=== PATIENT | female | born 1965 | race Caucasian/White ===

== ENCOUNTER 2023-09-18 17:43 | Inpatient (IN) | payer BC, SELFPAY ==
[2023-09-18] VITALS (7 sets, daily range): BP systolic 120–136; BP diastolic 63–88; PULSE 60–82; RESP 12–18; TEMP 36.4–37; O2SAT 95–99; BMI 26.2; BMI 24.9
--- NOTE | 2023-09-18 18:01 | CT_ITS ---
INDICATION: abd pain, constipation EXAMINATION: CT ABDOMEN AND PELVIS WITHOUT CONTRAST - CT Abdomen And Pelvis W/O Contrast Injection TECHNIQUE: Helically acquired images were obtained of the abdomen and pelvis without oral or IV contrast. A radiation dose optimization technique was used for this scan. IV Contrast dosage and agent: None. Oral contrast: None. RADIATION DOSAGE (If Supplied By Facility): CTDIvol = ( 9.05 ) mGy, DLP = ( 438.65 ) mGycm COMPARISON: No relevant prior comparison study available FINDINGS: LOWER CHEST: Lung bases are clear. No cardiomegaly or pericardial effusion. LIVER: The liver is normal in size, shape, and attenuation. No focal mass. GALLBLADDER AND BILIARY TREE: The gallbladder is normally distended. No gallstones. No gallbladder wall thickening or edema. No intra- or extrahepatic biliary ductal dilation. PANCREAS: No focal cystic or solid mass. SPLEEN: Normal size without focal cystic or solid mass. ADRENAL GLANDS: No nodules. KIDNEYS AND URETERS: Normal renal size and position. No hydronephrosis or nephrolithiasis. PERITONEUM: No ascites or free air. No other fluid collection. BOWEL: There is sigmoid colonic diverticulosis with evidence of acute diverticulitis involving the mid sigmoid colon with a contained perforation along the superior aspect of the sigmoid colon and pericolic fat stranding. There is prominent diffuse some mucosal fat deposition throughout the colon which is a nonspecific finding but can be seen in association with chronic inflammatory bowel disease. Normal appendix. Stomach and small bowel unremarkable. LYMPH NODES: No enlarged mesenteric or retroperitoneal lymph nodes. VESSELS: Aorta is non-dilated. URINARY BLADDER: Unremarkable. REPRODUCTIVE ORGANS: No pelvic masses. ABDOMINAL WALL: No discrete abdominal or pelvic wall hernia. BONES: No acute or suspicious osseous abnormality. CT/Abdomen/Pelvis without Cont IMPRESSION: * Acute sigmoid colonic diverticulitis with a contained perforation containing gas along the superior aspect of the mid sigmoid colon. No drainable collections. * Diffuse cervical spine fat deposition throughout the colon, greater than is usually seen even with obesity. Suspect background chronic inflammatory bowel disease. Electronically Signed: Gato Miramontes MD at 18:42 EST ,
--- NOTE | 2023-09-18 18:02 | EX.ED.DYSGE1 ---
HPI History of Present Illness Chief Complaint: Constipation Informant: patient Onset/Context/Timing Onset: Weeks Narrative Narrative: Patient presents secondary to abdominal pain and constipation. She denies any history of constipation. She states she got URI symptoms shortly before that improved with [id number] medications. Since she has been constipated. She states she is passing gas and only a small smear of stool here or there. She tried multiple home remedies including MiraLAX and stool softeners. She has not tried an enema. She was seen at a local urgent care and given a bottle of magnesium citrate but did not have any results after using this. Patient states that she did have a colonoscopy in the past, slightly before the recommended age due to a family history of gallbladder and liver cancer. She states she has a floppy bowel. She states that she did not receive adequate sedation for her colonoscopy and the scope got stuck because of her bowel problems and she has never gone back for another scope. [facility] Medical History (Updated 09/18/23 @ 20:[address] Alisha Ferreira MD) Depression Home Medications venlafaxine 75 mg tablet 70 mg PO DAILY 06/10/16 [History Last Taken Unknown] lamotrigine 150 mg tablet 300 mg PO DAILY 09/18/23 [History Last Taken Unknown] nitrofurantoin monohydrate/macrocrystals 100 mg capsule (Macrobid) 100 mg PO BID 09/18/23 [History Last Taken Unknown] sertraline 100 mg tablet 150 mg PO Q24H 09/18/23 [History Last Taken Unknown] Allergy/AdvReac Type Severity Reaction Status Date / Time Penicillins Allergy Hives Verified 06/10/16 22:38 Social History Smoking Status: Current every day smoker tobacco type: cigarettes ROS ROS ED Constitutional Constitutional ED: Denies chills or fever(s) Eyes Eyes: Denies change in vision or discharge from eye(s) ENT ENT ED: Denies discharge from eye(s), rhinorrhea or sore throat Cardiovascular Cardiovascular: Denies chest pain or palpitations Respiratory/Chest Respiratory/Chest: Denies cough or dyspnea Gastrointestinal Gastrointestinal: Reports abdominal pain and constipation; Denies diarrhea, nausea or vomiting Genitourinary Genitourinary ED: Denies dysuria Musculoskeletal Musculoskeletal: Denies back pain or extremity pain Integumentary Denies Abrasions or rash Neurologic Neurologic: Denies headache(s) or weakness Psychiatric Psychiatric: Denies anxiety or depression Allergic/Immunologic Allergic/Immunologic ED: Denies lip swelling or urticaria EXAM Physical Exam Const Vital Signs: 09/18/23 17:44 09/18/23 19:46 09/18/23 17:46 Temperature 98.1 F 98.0 F Temperature Source Temporal Oral Pulse Rate 82 65 60 Respiratory Rate 16 12 12 Blood Pressure 136/88 H 136/75 H 120/69 Blood Pressure Mean 104 95 86 Pulse Ox 99 99 99 Oxygen Delivery Method Room Air Room Air Room Air 09/18/23 18:46 09/18/23 19:46 Temperature 98.6 F 98.1 F Temperature Source Oral Oral Pulse Rate 65 66 Respiratory Rate 13 12 Blood Pressure 135/63 H 130/70 H Blood Pressure Mean 87 90 Pulse Ox 99 98 Oxygen Delivery Method Room Air Room Air Positive well nourished and well developed General Appearance ED: well developed HEENT Reports normocephalic and head/scalp atraumatic Eyes PERRL and EOMs intact bilaterally Neck supple Chest Wall inspection of chest normal and palpation of chest normal Resp normal respiratory effort and clear to auscultation bilaterally Cardio regular rate and regular rhythm GI non-tender Auscultation: hypoactive bowel sounds Palpation: soft Extremity normal to inspection Neuro oriented x3 and no sensory deficits noted Sensorium / Orientation: alert Motor Exam: strength 5/5 throughout Psych mental status grossly normal Skin no rashes or lesions noted MDM MDM MDM Narrative Medical decision making narrative: Given the patient's history of abnormal bowel I will get a CT of her abdomen pelvis to ensure no obvious masses or evidence of obstruction that may not be obvious on x-ray. She has not had prior abdominal surgery. History & Record Review Discussion w/independent historian: Patient and Significant other Lab Data Attestation: I reviewed the patient's lab results. Labs: Laboratory Results - last 24 hr 09/18/23 19:25 WBC 16.0 H RBC 4.15 L Hgb 10.3 L Hct 33.6 L MCV 81.0 MCH 24.8 L MCHC 30.7 L RDW Std Deviation 45.7 H RDW Coeff of Tashi 15.6 H Plt Count 363 MPV 9.0 Immature Gran % (Auto) 0.800 Neut % (Auto) 77.3 H Lymph % (Auto) 14.2 L [place] % (Auto) 6.8 Eos % (Auto) 0.6 Baso % (Auto) 0.3 Absolute Neuts (auto) 12.3 H Absolute Lymphs (auto) 2.27 Nucleated RBC % 0 Sodium 136 Potassium 3.6 Chloride 104 Carbon Dioxide 27.0 Anion Gap 5 BUN 8 Creatinine 0.85 Est GFR (MDRD) Af Amer 88 Est GFR (MDRD) Non-Af 73 BUN/Creatinine Ratio 9.4 L Glucose 105 Calcium 9.4 Radiography Diagnostic Testing: Clinical Impression(s) from Imaging Studies Abdomen/Pelvis CT 09/18/23 18:01 IMPRESSION: * Acute sigmoid colonic diverticulitis with a contained perforation containing gas along the superior aspect of the mid sigmoid colon. No drainable collections. * Diffuse cervical spine fat deposition throughout the colon, greater than is usually seen even with obesity. Suspect background chronic inflammatory bowel disease. Electronically Signed: Gato Miramontes MD at 18:42 EST , Treatment and Re-Evaluation :: CT scan of the flank is read as acute sigmoid diverticulitis with a contained perforation containing gas along the superior aspect of the mid sigmoid colon. No drainable collections noted. With this reading patient did have IV line established. Labwork obtained to evaluate for leukocytosis, anemia, and electrolyte derangement. Patient given morphine and Zofran for pain. She was given Cipro and Flagyl antibiotic coverage as she does have a penicillin allergy. CBC reveals an elevated white count of 16,000 with 77% neutrophils. Chemistry studies are unremarkable. I spoke with Dr. Landaverde, on-call for surgery. She had reviewed the images. She states this is a contained perforation and asked if I would talk to medicine to see if they will admit as plan will be medical management only. I will speak with the hospitalist. Discharge Plan Triage Chief Complaint: Constipation ED Provider: Alisha Ferreira Dx/Rx/DC Orders Clinical Impression: Diverticulitis, Perforation bowel Prescriptions: No Action venlafaxine 75 MG tablet 70 mg PO DAILY sertraline 100 mg tablet 150 mg PO Q24H Patient Comments: Take 1.5 Tablet By Oral Route at bedtime. nitrofurantoin monohyd/m-cryst [Macrobid] 100 mg capsule 100 mg PO BID Rx Instructions: must administer with a meal/food lamotrigine 150 mg tablet 300 mg PO DAILY Patient Comments: Take 1 Tablet By Oral Route 2 time(s) per day Primary Care Provider: Taylor Schneider Referrals: Mitzi Wharton MD [Med Staff - Medication Aid] - Disposition Disposition: Acute Care Hospital [facility]
[2023-09-18] MEDS: Morphine 4 MG/ML Syringe IV (19:22)
[2023-09-18] MEDS: 0.9% Normal Saline (1000mL) 1,000 ML 150 ML IV (19:22)
[2023-09-18] MEDS: Ondansetron 4 MG/2 ML Vial IV (19:22)
[2023-09-18 19:32] LABS: Absolute Lymphocyte Count 2.27 X10^3/uL (0.83-4.51); Absolute Neutrophil Count 12.3 X10^3/uL (2.0-7.7); Basophil# 0.05 X10^3/uL; Basophil% 0.3 % (0-1); Eosinophil# 0.09 X10^3/uL; Eosinophils% 0.6 % (0-5); Hematocrit 33.6 % (37-47); Hemoglobin 10.3 g/dL (12.0-15.0); Lymphocyte # 2.27 X10^3/ul (0.83-4.51); Lymphocyte % 14.2 % (19-41); Mean Corp Hgb Conc 30.7 g/dL (32-36); Mean Corpuscular Hgb 24.8 pg (27.0-32.0); Monocyte# 1.08 X10^3/uL; Monocyte% 6.8 % (0-10); NRBC Flagged by Analyzer 0 % (0-5); Neutrophil # 12.33 X10^3/uL (2.7-7.7); Neutrophil % 77.3 % (47-70); Platelet Count 363 K/mm3 (150-450); RBC Distribution Width CV 15.6 % (11.6-14.6); RBC Distribution Width SD 45.7 fl (35.1-43.9); Red Blood Count 4.15 M/mm3 (4.2-5.4)
[2023-09-18] MEDS: metroNIDAZOLE 500 MG/100 ML BAG 100 MG IV (19:40)
[2023-09-18 19:44] LABS: Anion Gap 5 (5-15); BUN 8 mg/dL (7-18); BUN/Creat Ratio 9.4 RATIO (10-20); Calcium,Total 9.4 mg/dL (8.5-10.1); Chloride 104 mmol/L (98-107); Creatinine, Serum 0.85 mg/dL (0.55-1.02); EST Glomerular Filtration Rate 73 mL/min (>60); Est Glom Filt Rate - Afr Amer 88 mL/min (>60); Glucose 105 mg/dL (74-106); Potassium 3.6 mmol/L (3.5-5.1); Sodium Level 136 mmol/L (136-145)
--- NOTE | 2023-09-18 20:42 | PCM.HP.STD ---
HPI - General General Date of Service: 09/18/23 Chief Complaint: Abdominal pain. HPI Narrative ROLANDO CLOUD, is a 58 F who presents with further quadrant abdominal pain. Symptoms began before gi but has progressively gotten worse. She presented to the emergency room and had a CAT scan that showed acute sigmoid colonic diverticulitis with sigmoid colon. General surgery was contacted and said there is no indication for surgery at this time. Recommending antibiotics and n.p.o. status at this time. This was a conversation had with Dr. Landaverde. Patient has never had diverticulitis before. [facility] Medical History (Updated 09/18/23 @ 20:[address] Marco A Hu DO) Depression Home Medications venlafaxine 75 mg tablet 70 mg PO DAILY 06/10/16 [History Last Taken Unknown] lamotrigine 150 mg tablet 300 mg PO DAILY 09/18/23 [History Last Taken Unknown] nitrofurantoin monohydrate/macrocrystals 100 mg capsule (Macrobid) 100 mg PO BID 09/18/23 [History Last Taken Unknown] sertraline 100 mg tablet 150 mg PO Q24H 09/18/23 [History Last Taken Unknown] Allergy/AdvReac Type Severity Reaction Status Date / Time Penicillins Allergy Hives Verified 06/10/16 22:38 Family History (Updated 09/18/23 @ 20:[address] Marco A Hu DO) Mother Cancer Patient's mother has gallbladder cancer with metastasis to the liver. Social History (Updated 09/18/23 @ 20:[address] Marco A Hu DO) Smoking Status: Current every day smoker tobacco type: cigarettes substance use type: marijuana ROS ROS Narrative All review of systems were negative except as mentioned above in the history of present illness and the other review of systems. Vital Signs Vital Signs Vital Signs: 09/18/23 17:44 09/18/23 19:46 09/18/23 17:46 Temperature 36.7 C 36.7 C Temperature Source Temporal Oral Pulse Rate 82 65 60 Respiratory Rate 16 12 12 Blood Pressure 136/88 H 136/75 H 120/69 Blood Pressure Mean 104 95 86 Pulse Ox 99 99 99 Oxygen Delivery Method Room Air Room Air Room Air 09/18/23 18:46 09/18/23 19:46 09/18/23 20:32 Temperature 37.0 C 36.7 C Temperature Source Oral Oral Pulse Rate 65 66 Respiratory Rate 13 12 Blood Pressure 135/63 H 130/70 H 127/65 H Blood Pressure Mean 87 90 85 Pulse Ox 99 98 96 Oxygen Delivery Method Room Air Room Air Room Air Weight Weight: 75.9 kg Body Mass Index (BMI) 26.2 Physical Exam Narrative - Physical Exam General: Alert, Oriented x3, Cooperative HEENT: Atraumatic, PERRLA, EOMI, Normocephalic Oral: Moist Mucosa, No Gingival or Mucosal Lesions/ Ulcerations Neck: Supple, No JVD, Negative Carotid Bruits Lungs: Clear to auscultation, Normal air movement Cardiovascular: Regular rate, Normal S1, Normal S2, No murmurs Abdomen: Bowel Sounds Present, Soft, right lower quadrant abdominal tenderness. No rebound., Non-Distended, No Hepato-splenomegaly Extremities: No clubbing, No cyanosis, No edema, Capillary Refill Less than 3 Seconds Skin: No rashes, No breakdown Musculoskeletal: No Tenderness to Palpation of Joints or Extremities Neurological: Neuro grossly intact Psych/Mental Status: Normal Affect, Appropriate Results Lab / Micro Data Attestation: I reviewed the patient's lab results. 09/18/23 19:25 09/18/23 19:25 Labs: Laboratory Results - last 24 hr 09/18/23 19:25: WBC 16.0 H, RBC 4.15 L, Hgb 10.3 L, Hct 33.6 L, MCV 81.0, MCH 24.8 L, MCHC 30.7 L, RDW Std Deviation 45.7 H, RDW Coeff of Tashi 15.6 H, Plt Count 363, MPV 9.0, Immature Gran % (Auto) 0.800, Neut % (Auto) 77.3 H, Lymph % (Auto) 14.2 L, [place] % (Auto) 6.8, Eos % (Auto) 0.6, Baso % (Auto) 0.3, Absolute Neuts (auto) 12.3 H, Absolute Lymphs (auto) 2.27, Nucleated RBC % 0, Sodium 136, Potassium 3.6, Chloride 104, Carbon Dioxide 27.0, Anion Gap 5, BUN 8, Creatinine 0.85, Est GFR (MDRD) Af Amer 88, Est GFR (MDRD) Non-Af 73, BUN/Creatinine Ratio 9.4 L, Glucose 105, Calcium 9.4 Imagaing Radiology Impression Abdomen/Pelvis CT 09/18/23 18:01 IMPRESSION: * Acute sigmoid colonic diverticulitis with a contained perforation containing gas along the superior aspect of the mid sigmoid colon. No drainable collections. * Diffuse cervical spine fat deposition throughout the colon, greater than is usually seen even with obesity. Suspect background chronic inflammatory bowel disease. Electronically Signed: Gato Miramontes MD at 18:42 EST , Assessment & Plan Assessment/Plan (1) Diverticulitis of colon with perforation: PLAN: Onset was before . Now has diverticulitis with perforation. Patient received ciprofloxacin and metronidazole in the emergency room. Will continue with his antibiotics on the floor. Patient will be n.p.o. with exception of medications as well as ice chips. General surgery be on consultation. There is no plans for surgery at this time but many get them on board in case things were to somehow get worse. Discussed with the patient about the current management. Do anticipate this to continue to get better. Patient was asked about returning to work on Tuesday. I told her that the may be a little too soon and she may require more time before returning to work. PLAN: Plan Tobacco abuse: Patient smokes a pack and half cigarettes per day. Patient denies any need for any nicotine replacement at this time. VTE prophylaxis with enoxaparin. Charges/Coding Visit Charges Inpatient E&M: 40205 Init Hosp L2
[2023-09-18] MEDS: Ciprofloxacin 400 MG/200 ML BAG 200 MG IV (20:46)
[2023-09-18] MEDS: Ketorolac 15 MG/ML Vial IV (21:31)
[2023-09-18] MEDS: Sertraline 100 MG Tablet 150 MG PO (21:40)
[2023-09-18] MEDS: MELATONIN 10 MG TABLET PO (21:50)
[2023-09-19] MEDS: oxyCODONE 5 MG Tablet PO ×3 (03:08→19:38)
[2023-09-19] MEDS: 0.9% Normal Saline (1000mL) 1,000 ML 150 ML IV (03:08)
[2023-09-19 03:11] VITALS: BP 107/52; PULSE 81; RESP 16; TEMP 36.7; O2SAT 98
[2023-09-19] MEDS: metroNIDAZOLE 500 MG/100 ML BAG 100 MG IV ×3 (05:39→20:01)
[2023-09-19] MEDS: Ketorolac 15 MG/ML Vial IV ×3 (05:55→21:28)
[2023-09-19 06:41] LABS: Absolute Lymphocyte Count 1.96 X10^3/uL (0.83-4.51); Basophil# 0.04 X10^3/uL; Basophil% 0.3 % (0-1); Eosinophil# 0.16 X10^3/uL; Eosinophils% 1.3 % (0-5); Hematocrit 28.7 % (37-47); Hemoglobin 8.8 g/dL (12.0-15.0); Lymphocyte # 1.96 X10^3/ul (0.83-4.51); Mean Corp Hgb Conc 30.7 g/dL (32-36); Mean Corpuscular Hgb 24.9 pg (27.0-32.0); Mean Corpuscular Volume 81.3 fL (81-99); Mean Platelet Vol. 9.6 fl (6.2-12.0); Monocyte% 8.1 % (0-10); NRBC Flagged by Analyzer 0 % (0-5); Neutrophil # 9.02 X10^3/uL (2.7-7.7); Neutrophil % 73.5 % (47-70); Platelet Count 317 K/mm3 (150-450); RBC Distribution Width CV 15.5 % (11.6-14.6); RBC Distribution Width SD 45.6 fl (35.1-43.9); Red Blood Count 3.53 M/mm3 (4.2-5.4); White Blood Count 12.3 K/mm3 (4.4-11.0)
[2023-09-19 07:23] LABS: Anion Gap 4 (5-15); BUN 8 mg/dL (7-18); BUN/Creat Ratio 9.6 RATIO (10-20); Calcium,Total 8.4 mg/dL (8.5-10.1); Chloride 109 mmol/L (98-107); Creatinine, Serum 0.84 mg/dL (0.55-1.02); EST Glomerular Filtration Rate 74 mL/min (>60); Est Glom Filt Rate - Afr Amer 90 mL/min (>60); Estimated Creatinine Clearance 73.64 ml/min; Glucose 107 mg/dL (74-106); Potassium 3.4 mmol/L (3.5-5.1); Sodium Level 139 mmol/L (136-145)
--- NOTE | 2023-09-19 07:42 | PN.HOSP_ITS ---
Reason for Visit Reason for Visit: Diagnoses Diverticulitis of large intestine with perforation and abscess without bleeding (09/18/23) Subjective Subjective Patient is a 58-year-old lady admitted with abdominal pain imaging studies demonstrated acute sigmoid colonic diverticulitis with contained perforation containing gas along the superior aspect of the mid sigmoid colon. Admitted to regular nursing floor for further management Objective Data Objective Data Vital Signs: Vital Signs Temp Pulse Resp BP Pulse Ox O2 Del Method 98.0 F 81 16 107/52 L 98 Room Air 09/19/23 03:11 09/19/23 03:11 09/19/23 03:11 09/19/23 03:11 09/19/23 03:11 09/19/23 03:11 Oxygen Delivery Method Room Air Weight: 74.4 kg Body Mass Index (BMI) 24.9 Intake & Output: Intake and Output for Last 24 Hours 09/17/23 09/18/23 09/19/23 23:59 23:59 23:59 Intake Total 300 / 300 1100 / 1100 Balance 300 / 300 1100 / 1100 Lab / Micro Data 09/19/23 05:45 09/19/23 05:45 Labs: Laboratory Results - last 24 hr 09/18/23 19:25: WBC 16.0 H, RBC 4.15 L, Hgb 10.3 L, Hct 33.6 L, MCV 81.0, MCH 24.8 L, MCHC 30.7 L, RDW Std Deviation 45.7 H, RDW Coeff of Tashi 15.6 H, Plt Count 363, MPV 9.0, Immature Gran % (Auto) 0.800, Neut % (Auto) 77.3 H, Lymph % (Auto) 14.2 L, [place] % (Auto) 6.8, Eos % (Auto) 0.6, Baso % (Auto) 0.3, Absolute Neuts (auto) 12.3 H, Absolute Lymphs (auto) 2.27, Nucleated RBC % 0, Sodium 136, Potassium 3.6, Chloride 104, Carbon Dioxide 27.0, Anion Gap 5, BUN 8, Creatinine 0.85, Est GFR (MDRD) Af Amer 88, Est GFR (MDRD) Non-Af 73, BUN/Creatinine Ratio 9.4 L, Glucose 105, Calcium 9.4 09/19/23 05:45: WBC 12.3 H, RBC 3.53 L, Hgb 8.8 L, Hct 28.7 L, MCV 81.3, MCH 24.9 L, MCHC 30.7 L, RDW Std Deviation 45.6 H, RDW Coeff of Tashi 15.5 H, Plt Count 317, MPV 9.6, Immature Gran % (Auto) 0.800, Neut % (Auto) 73.5 H, Lymph % (Auto) 16.0 L, [place] % (Auto) 8.1, Eos % (Auto) 1.3, Baso % (Auto) 0.3, Absolute Neuts (auto) 9.0 H, Absolute Lymphs (auto) 1.96, Nucleated RBC % 0, Sodium 139, Potassium 3.4 L, Chloride 109 H, Carbon Dioxide 26.0, Anion Gap 4 L, BUN 8, Creatinine 0.84, Estim Creat Clear Calc 73.64, Est GFR (MDRD) Af Amer 90, Est GFR (MDRD) Non-Af 74, BUN/Creatinine Ratio 9.6 L, Glucose 107 H, Calcium 8.4 L Radiography Diagnostic Testing: Radiology Impression Abdomen/Pelvis CT 09/18/23 18:01 IMPRESSION: * Acute sigmoid colonic diverticulitis with a contained perforation containing gas along the superior aspect of the mid sigmoid colon. No drainable collections. * Diffuse cervical spine fat deposition throughout the colon, greater than is usually seen even with obesity. Suspect background chronic inflammatory bowel disease. Electronically Signed: Gato Miramontes MD at 18:42 EST Reading Location ID and State: [address] [place] [address] Tel , Service support , Physical Exam Narrative GENERAL: cooperative HEENT: Atraumatic; normocephalic EYES; Anicteric, Normal Conjunctiva NECK; supple, normal thyroid, RESPIRATORY: Diminished to auscultation CARDIOVASCULAR: Regular S1 S2, GI: soft, normoactive bowel sounds, : No Renal angle tenderness; EXTREMITIES: No edema, no clubbing, MUSCULOSKELETAL: no muscle wasting NEURO: Awake; no lateralizing signs. SKIN: No Rash PSYCH; Flat affect Assessment & Plan Assessment/Plan (1) Diverticulitis of colon with perforation: PLAN: Plan Patient is a 58-year-old lady admitted with abdominal pain imaging studies demonstrated acute sigmoid colonic diverticulitis with contained perforation containing gas along the superior aspect of the mid sigmoid colon. Admitted to regular nursing floor for further management 1. Acute colonic diverticulitis ? With perforation patient admitted to regular nursing floor managed conser vatively with bowel rest, antibiotics with ciprofloxacin and Flagyl with consultation placed to general surgery 2. Tobacco dependence - Counseled on cessation, offered nicotine patch for tobacco cravings 3. Hypokalemia -Corrected per protocol 4. Anemia - Secondary to chronic disorder.. Ordered iron studies as well as stool guaiac, monitoring H&H and transfuse if patient becomes symptomatic or hemoglobin falls below 7 5. DVT prophylaxis ? SC Lovenox Time spent in the patient's overall evaluation,decision-making process, review of diagnostic data, adjustment of management, discussion with other providers, nursing nursing and ancillary staff involved in patient's care documentation,50 Minutes Charges/Coding Visit Charges Inpatient E&M: 04830 [facility] L3
[2023-09-19 08:50] VITALS: BP 109/61; PULSE 61; RESP 18; TEMP 36.8; O2SAT 92
[2023-09-19] MEDS: lamoTRIgine 150 MG Tablet 300 MG PO (08:56)
[2023-09-19] MEDS: Ciprofloxacin 400 MG/200 ML BAG 200 MG IV ×2 (09:00→21:28)
--- NOTE | 2023-09-19 09:06 | CON.PCM.SX_ITS ---
Assessment & Plan Assessment/Plan (1) Diverticulitis of colon with perforation: PLAN: I have been consulted in conjunction with Dr. Landaverde. I have reviewed this patient and discussed treatment plan with her. She will independently eval uate this patient. Patient admitted with perforated sigmoid diverticulitis. Patient's symptoms seem to be improving on IV antibiotics and bowel rest. The plan will be to continue IV hydration, IV antibiotics and bowel rest. We will increase her diet to include clear liquids today. No surgical intervention is being recommended at this time. Patient is aware that if her symptoms were to become worse or we are seeing a change in her status, we may need to pursue acute surgical intervention. Patient has had the opportunity to ask and have questions answered. Patient verbally understands and agrees with the plan. Thank you for allowing us to participate in this patient's care. HPI Consult Data Date of Consult: 09/19/23 HPI Narrative Reason for Consultation: Perforated sigmoid diverticulitis HPI Narrative: ROLANDO CLOUD, is a 58 F who presents with increasing lower abdominal pain and bloating. Patient describes her discomfort as first stage of labor. She notes the cramping, painful sensation was all around her abdomen. She notes this started the day before Thanksgi. She thought she was constipated and attem pted at home remedies to assist with a bowel movement. She notes Miralax was one of the medications she tried without success. Patient notes she went to see urgent care due to the constipation and was recommended to try magnesium citrate. She was also noted to have a urinary tract infection which she was started on Macrobid. She notes she has taken 1 1/2 days of treatment. She notes she has not had much in the way of bowel movements. She notes she has had some diarrhea. She notes her abdominal pain had caused low back pain as well. Patient notes her symptoms intensified, which brought her to the ED. Patient notes she is passing small amount of gas. She notes having one episode of diarrhea here. Patient states she take an anti-depressant, otherwise no other medications. She has never had surgery previously. She denies history of diverticulitis. She denies nausea, vomiting. She denies cardiac and pulmonary history. She notes she was scheduled to see her PCP as an outpatient tomorrow for her symptoms, but again she notes she could not wait until then. Patient notes she is a smoker. She notes her pain has improved in the little time she has been admitted. CT scan of the abdomen/pelvis demonstrated acute sigmoid colonic diverticulitis with contained perforation containing gas along the superior aspect of the mid sigmoid colon. No abscess noted. Patient's WBC is 16.0 on admission, WBC is 12.3 today. [facility] Medical History Depression Home Medications lamotrigine 150 mg tablet 300 mg PO DAILY depression 09/18/23 [History Last Taken 09/17/23] nitrofurantoin monohydrate/macrocrystals 100 mg capsule (Macrobid) 100 mg PO BID uti 09/18/23 [History Last Taken 09/18/23] sertraline 100 mg tablet 150 mg PO Q24H depression 09/18/23 [History Last Taken 09/17/23] Allergy/AdvReac Type Severity Reaction Status Date / Time Penicillins Allergy Hives Verified 06/10/16 22:38 Family History (Updated 09/18/23 @ 20:[address] Marco A Hu DO) Mother Cancer Patient's mother has gallbladder cancer with metastasis to the liver. Social History (Updated 09/18/23 @ 20:[address] Marco A Hu DO) Smoking Status: Current every day smoker tobacco type: cigarettes substance use type: marijuana ROS Constitutional Constitutional: Reports systems reviewed and no addt'l complaints, except as documented Eyes Eyes: Reports systems reviewed and no addt'l complaints, except as documented ENT HEENT: Reports systems reviewed and no addt'l complaints, except as documented Cardiovascular Cardiovascular: Reports systems reviewed and no addt'l complaints, except as documented Respiratory/Chest Respiratory/Chest: Reports systems reviewed and no addt'l complaints, except as documented Gastrointestinal Gastrointestinal: Reports systems reviewed and no addt'l complaints, except as documented Genitourinary Genitourinary: Reports systems reviewed and no addt'l complaints, except as documented Musculoskeletal Musculoskeletal: Reports systems reviewed and no addt'l complaints, except as documented Integumentary Integumentary: Reports systems reviewed and no addt'l complaints, except as documented Neurologic Neurologic: Reports systems reviewed and no addt'l complaints, except as documented Psychiatric Psychiatric: Reports systems reviewed and no addt'l complaints, except as documented Endocrine Endocrinology: Reports systems reviewed and no addt'l complaints, except as documented Hematologic/Lymphatic Hematologic/Lymphatic: Reports systems reviewed and no addt'l complaints, except as documented Allergic/Immunologic Allergic/Immunologic: Reports systems reviewed and no addt'l complaints, except as documented Physical Exam Const alert, oriented x3 and no apparent distress HEENT normocephalic and head/scalp atraumatic Eyes PERRL Neck full ROM Lymph Lymphatic: no lymphadenopathy noted Chest inspection of chest normal Resp normal respiratory effort and clear to auscultation bilaterally Cardio regular rate and regular rhythm GI GI Narrative: Abdomen- distended slightly, slight tenderness in the left lower quadrant. Positive bowel sounds. no CVA tenderness Back/Spine no CVA tenderness Extremity normal to inspection Skin no rashes or lesions noted Neuro no focal motor deficits and no sensory deficits noted Psych mental status grossly normal Lab / Micro Data 09/19/23 05:45 09/19/23 05:45 Labs: Laboratory Results - last 24 hr 09/18/23 19:25: WBC 16.0 H, RBC 4.15 L, Hgb 10.3 L, Hct 33.6 L, MCV 81.0, MCH 24.8 L, MCHC 30.7 L, RDW Std Deviation 45.7 H, RDW Coeff of Tashi 15.6 H, Plt Count 363, MPV 9.0, Immature Gran % (Auto) 0.800, Neut % (Auto) 77.3 H, Lymph % (Auto) 14.2 L, Mckenzie % (Auto) 6.8, Eos % (Auto) 0.6, Baso % (Auto) 0.3, Absolute Neuts (auto) 12.3 H, Absolute Lymphs (auto) 2.27, Nucleated RBC % 0, Sodium 136, Potassium 3.6, Chloride 104, Carbon Dioxide 27.0, Anion Gap 5, BUN 8, Creatinine 0.85, Est GFR (MDRD) Af Amer 88, Est GFR (MDRD) Non-Af 73, BUN/Creatinine Ratio 9.4 L, Glucose 105, Calcium 9.4 09/19/23 05:45: WBC 12.3 H, RBC 3.53 L, Hgb 8.8 L, Hct 28.7 L, MCV 81.3, MCH 24.9 L, MCHC 30.7 L, RDW Std Deviation 45.6 H, RDW Coeff of Tashi 15.5 H, Plt Count 317, MPV 9.6, Immature Gran % (Auto) 0.800, Neut % (Auto) 73.5 H, Lymph % (Auto) 16.0 L, Mckenzie % (Auto) 8.1, Eos % (Auto) 1.3, Baso % (Auto) 0.3, Absolute Neuts (auto) 9.0 H, Absolute Lymphs (auto) 1.96, Nucleated RBC % 0, Sodium 139, Potassium 3.4 L, Chloride 109 H, Carbon Dioxide 26.0, Anion Gap 4 L, BUN 8, Creatinine 0.84, Estim Creat Clear Calc 73.64, Est GFR (MDRD) Af Amer 90, Est GFR (MDRD) Non-Af 74, BUN/Creatinine Ratio 9.6 L, Glucose 107 H, Calcium 8.4 L Imagaing Radiology Impression Abdomen/Pelvis CT 09/18/23 18:01 IMPRESSION: * Acute sigmoid colonic diverticulitis with a contained perforation containing gas along the superior aspect of the mid sigmoid colon. No drainable collections. * Diffuse cervical spine fat deposition throughout the colon, greater than is usually seen even with obesity. Suspect background chronic inflammatory bowel disease. Electronically Signed: Gato Miramontes MD at 18:42 EST Reading Location ID and State: [facility] / [place] Tel , Service support , Charges/Coding Visit Charges Office Visits / Consults: 72529 IP Consult L3
--- NOTE | 2023-09-19 10:10 | CASEMGMT ---
SARAI CARMONA Assessment: Face to Face with pt for initial transition planning/care coordination assessment. RN MATHEW introduced self and role at [facility], pt voices understanding and consents to assessment. Pt is A&O x4 and answers all questions appropriately at this time. Pt getting in bed, just coming back from restroom in no distress. Care providers, pharmacy, and demographics verified/updated. Admitting Dx: perforated diverticulitis PCP:[facility] Specialists:Denies Preferred Pharmacy:[facility] Insurance: [employer] Prescription Benefit: yes LNOK: Gato Vyas, Living Arrangements: Pt lives with and 2 adult children in a two story home with 2 steps to enter with a rail. Pt reports she could have FFSU if she needs it. Pt reports being I in ADL's and denies concerns at home. Transportation: Pt drives self and denies concerns with transportation. DME:Denies HHC/SNF: Denies hx of Pt states no concerns with going home at time of dc. Pt states no further concerns/needs. CM to follow. Advised pt to ask CM if any further question/concerns/needs arise, voices understanding. Pt Goal: Home Plan: Home
[2023-09-19 10:32] LABS: Ferritin 15 ng/mL (8-252); Iron 30 ug/dL (50-170); Iron Binding Capacity,Total 347 ug/dL (250-450); PERCENT IRON SATURATION 8.6 % (15.0-55.0); Vitamin B12 776 pg/mL (211-911)
[2023-09-19 10:34] LABS: Platelet Count 337 K/mm3 (150-450); RET-HE 26.2 pg (30-35); Reticulocyte Count 1.67 % (0.5-1.5)
[2023-09-19] MEDS: Potassium Chloride 40 MEQ in Dext 5%-0.45% NS 1,000 ML 125 MEQ IV ×2 (11:14→19:54)
[2023-09-19] MEDS: 0.9% Saline Lock 10 ML Syringe IV (14:16)
[2023-09-19 14:50] VITALS: BP 96/47; PULSE 62; RESP 18; TEMP 36.9; O2SAT 96
[2023-09-19] MEDS: Acetaminophen 325 MG Tablet 650 MG PO (19:38)
[2023-09-19] MEDS: Sertraline 100 MG Tablet 150 MG PO ×2 (20:01→20:04)
[2023-09-19 20:16] VITALS: BP 114/62; PULSE 86; RESP 16; TEMP 36.8; O2SAT 98
[2023-09-20] MEDS: metroNIDAZOLE 500 MG/100 ML BAG 100 MG IV ×3 (04:52→20:54)
[2023-09-20] MEDS: Potassium Chloride 40 MEQ in Dext 5%-0.45% NS 1,000 ML 125 MEQ IV ×2 (04:52→14:35)
[2023-09-20] MEDS: Ketorolac 15 MG/ML Vial IV ×3 (05:51→22:07)
[2023-09-20 05:54] VITALS: BP 120/61; PULSE 69; RESP 16; TEMP 36.7; O2SAT 99
--- NOTE | 2023-09-20 07:14 | PN.SURG_ITS ---
Subjective Subjective Patient states pain is improved rates it at 3/10. Objective Data Objective Data Vital Signs: Vital Signs Temp Pulse Resp BP Pulse Ox O2 Del Method 98.0 F 69 16 120/61 99 Room Air 09/20/23 05:54 09/20/23 05:54 09/20/23 05:54 09/20/23 05:54 09/20/23 05:54 09/20/23 05:54 Oxygen Delivery Method Room Air Weight: 164 lb 0.383 oz Body Mass Index (BMI) 24.9 Intake & Output: Intake and Output for Last 24 Hours 09/18/23 09/19/23 09/20/23 23:59 23:59 23:59 Intake Total 300 / 300 3820 / 3820 1120 / 1120 Balance 300 / 300 3820 / 3820 1120 / 1120 Lab / Micro Data 09/20/23 07:07 09/20/23 07:07 Labs: Laboratory Results - last 24 hr 09/19/23 05:45: Retic Count 1.67 H, Immature Retic Fraction 22.30 H, Retic Hgb Equivalent 26.2 L, Sodium 139, Potassium 3.4 L, Chloride 109 H, Carbon Dioxide 26.0, Anion Gap 4 L, BUN 8, Creatinine 0.84, Estim Creat Clear Calc 73.64, Est GFR (MDRD) Af Amer 90, Est GFR (MDRD) Non-Af 74, BUN/Creatinine Ratio 9.6 L, Glucose 107 H, Calcium 8.4 L, Iron 30 L, TIBC 347, Iron Saturation 8.6 L, Ferritin 15, Vitamin B12 776 Micro: Microbiology 09/19/23 21:40 Stool Stool Occult Blood (ROSY) - Final Occult Blood Positive Physical Exam Const oriented x3 and no apparent distress Resp normal respiratory effort Cardio regular rate GI soft to palpation Inspection: Negative for abdominal distention Palpation: tender periumbilical (No peritoneal signs) and other Assessment & Plan Assessment/Plan (1) Diverticulitis of colon with perforation: PLAN: Will advance to clears- do not advance continue Zosyn IV Continue pain control Monique Landaverde M.D. Pager: [phone] [facility] [address] [place] [address], Outpatient Pavilion, [address] [place] [address] Office: [phone] Charges/Coding Visit Charges Inpatient E&M: 65210 Subs Hosp L2
[2023-09-20 07:29] LABS: Absolute Neutrophil Count 7.6 X10^3/uL (2.0-7.7); Basophil# 0.04 X10^3/uL; Basophil% 0.4 % (0-1); Eosinophil# 0.17 X10^3/uL; Eosinophils% 1.6 % (0-5); Hematocrit 27.1 % (37-47); Hemoglobin 8.3 g/dL (12.0-15.0); Lymphocyte % 16.4 % (19-41); Mean Corp Hgb Conc 30.6 g/dL (32-36); Mean Corpuscular Volume 81.6 fL (81-99); Mean Platelet Vol. 9.2 fl (6.2-12.0); Monocyte# 0.79 X10^3/uL; Monocyte% 7.6 % (0-10); NRBC Flagged by Analyzer 0 % (0-5); Neutrophil % 73.2 % (47-70); Platelet Count 323 K/mm3 (150-450); RBC Distribution Width CV 15.6 % (11.6-14.6); Red Blood Count 3.32 M/mm3 (4.2-5.4); White Blood Count 10.4 K/mm3 (4.4-11.0)
--- NOTE | 2023-09-20 07:37 | PCM.PN.HOSP ---
Reason for Visit Reason for Visit: Diagnoses Diverticulitis of large intestine with perforation and abscess without bleeding (09/18/23) Subjective Subjective Patient seen, abdominal pain improving. Iron studies undertaken the day prior consistent with iron deficiency anemia. Has been started on oral diet clear for now Objective Data Objective Data Vital Signs: Vital Signs Temp Pulse Resp BP Pulse Ox O2 Del Method 98.0 F 69 16 120/61 99 Room Air 09/20/23 05:54 09/20/23 05:54 09/20/23 05:54 09/20/23 05:54 09/20/23 05:54 09/20/23 05:54 Oxygen Delivery Method Room Air Weight: 74.4 kg Body Mass Index (BMI) 24.9 Intake & Output: Intake and Output for Last 24 Hours 09/18/23 09/19/23 09/20/23 23:59 23:59 23:59 Intake Total 300 / 300 3820 / 3820 1120 / 1120 Balance 300 / 300 3820 / 3820 1120 / 1120 Lab / Micro Data 09/20/23 07:07 09/20/23 07:07 Labs: Laboratory Results - last 24 hr 09/19/23 05:45: Retic Count 1.67 H, Immature Retic Fraction 22.30 H, Retic Hgb Equivalent 26.2 L, Iron 30 L, TIBC 347, Iron Saturation 8.6 L, Ferritin 15, Vitamin B12 776 09/20/23 07:07: WBC 10.4, RBC 3.32 L, Hgb 8.3 L, Hct 27.1 L, MCV 81.6, MCH 25.0 L, MCHC 30.6 L, RDW Std Deviation 46.0 H, RDW Coeff of Tashi 15.6 H, Plt Count 323, MPV 9.2, Immature Gran % (Auto) 0.800, Neut % (Auto) 73.2 H, Lymph % (Auto) 16.4 L, [place] % (Auto) 7.6, Eos % (Auto) 1.6, Baso % (Auto) 0.4, Absolute Neuts (auto) 7.6, Absolute Lymphs (auto) 1.70, Nucleated RBC % 0 Micro: Microbiology 09/19/23 21:40 Stool Stool Occult Blood (ROSY) - Final Occult Blood Positive Physical Exam Narrative GENERAL: cooperative HEENT: Atraumatic; normocephalic EYES; Anicteric, Normal Conjunctiva NECK; supple, normal thyroid, RESPIRATORY: Diminished to auscultation CARDIOVASCULAR: Regular S1 S2, GI: soft, normoactive bowel sounds, : No Renal angle tenderness; EXTREMITIES: No edema, no clubbing, MUSCULOSKELETAL: no muscle wasting NEURO: Awake; no lateralizing signs. SKIN: No Rash PSYCH; Flat affect Assessment & Plan Assessment/Plan (1) Diverticulitis of colon with perforation: PLAN: Plan Patient is a 58-year-old lady admitted with abdominal pain imaging studies demonstrated acute sigmoid colonic diverticulitis with contained perforation containing gas along the superior aspect of the mid sigmoid colon. Admitted to regular nursing floor for further management 1. Acute colonic diverticulitis ? With perforation patient admitted to regular nursing floor managed conservatively with bowel rest, antibiotics with ciprofloxacin and Flagyl with consultation placed to general surgery ? 09/20/2023; Patient seen, abdominal pain improving. Iron studies undertaken the day prior consistent with iron deficiency anemia. Has been started on oral diet clear for now 2. Tobacco dependence - Counseled on cessation, offered nicotine patch for tobacco cravings 3. Hypokalemia -Corrected per protocol 4. Anemia - Secondary to chronic disorder.. Ordered iron studies as well as stool guaiac, monitoring H&H and transfuse if patient becomes symptomatic or hemoglobin falls below 7 ? 09/20/2023 patient iron studies consistent with iron deficiency anemia informed of the result and the need for patient to undergo endoscopic evaluation with upper and lower following discharge 5. DVT prophylaxis ? SC Lovenox Time spent in the patient's overall evaluation,decision-making process, review of diagnostic data, adjustment of management, discussion with other providers, nursing nursing and ancillary staff involved in patient's care documentation, 35 Minutes Charges/Coding Visit Charges Inpatient E&M: 17631 Subs Hosp L2
[2023-09-20 07:55] LABS: Anion Gap 1 (5-15); BUN 4 mg/dL (7-18); BUN/Creat Ratio 5.5 RATIO (10-20); Calcium,Total 8.5 mg/dL (8.5-10.1); Chloride 113 mmol/L (98-107); Creatinine, Serum 0.73 mg/dL (0.55-1.02); EST Glomerular Filtration Rate 87 mL/min (>60); Est Glom Filt Rate - Afr Amer 105 mL/min (>60); Estimated Creatinine Clearance 84.74 ml/min; Glucose 118 mg/dL (74-106); Magnesium 2.2 mg/dL (1.6-2.6); Phosphorus 2.1 mg/dL (2.5-4.9); Potassium 3.8 mmol/L (3.5-5.1); Sodium Level 141 mmol/L (136-145)
[2023-09-20] MEDS: Ciprofloxacin 400 MG/200 ML BAG 200 MG IV ×2 (09:28→22:01)
[2023-09-20] MEDS: lamoTRIgine 150 MG Tablet 300 MG PO (09:29)
[2023-09-20 09:30] VITALS: BP 117/62; PULSE 68; RESP 16; TEMP 37; O2SAT 97
[2023-09-20] MEDS: Na Biphos/Potassium Phosphate PACKET 1 PACKET PO ×2 (11:51→22:03)
[2023-09-20 14:05] VITALS: BP 112/51; PULSE 77; RESP 16; TEMP 37; O2SAT 97
[2023-09-20] MEDS: 0.9% Saline Lock 10 ML Syringe IV ×3 (15:32→22:07)
[2023-09-20 22:00] VITALS: BP 117/66; PULSE 71; RESP 18; TEMP 36.9; O2SAT 99
[2023-09-20] MEDS: MELATONIN 10 MG TABLET PO (22:07)
[2023-09-21] MEDS: Potassium Chloride 40 MEQ in Dext 5%-0.45% NS 1,000 ML 125 MEQ IV (01:10)
[2023-09-21 06:17] VITALS: BP 112/54; PULSE 77; RESP 18; TEMP 37.1; O2SAT 97
[2023-09-21] MEDS: Ketorolac 15 MG/ML Vial IV (06:21)
[2023-09-21] MEDS: 0.9% Saline Lock 10 ML Syringe IV (06:21)
[2023-09-21] MEDS: metroNIDAZOLE 500 MG/100 ML BAG 100 MG IV ×2 (06:23→13:26)
[2023-09-21 07:50] VITALS: BP 97/56; PULSE 69; RESP 16; TEMP 36.6; O2SAT 97
--- NOTE | 2023-09-21 07:57 | PCM.PN.HOSP ---
Reason for Visit Reason for Visit: Diagnoses Diverticulitis of large intestine with perforation and abscess without bleeding (09/18/23) Subjective Subjective Patient seen held pain is improving. Plan is advance diet as tolerated with plans for discharge later on in the day Objective Data Objective Data Vital Signs: Vital Signs Temp Pulse Resp BP Pulse Ox O2 Del Method 97.8 F 69 16 97/56 L 97 Room Air 09/21/23 07:50 09/21/23 07:50 09/21/23 07:50 09/21/23 07:50 09/21/23 07:50 09/21/23 07:50 Oxygen Delivery Method Room Air Weight: 74.4 kg Body Mass Index (BMI) 24.9 Intake & Output: Intake and Output for Last 24 Hours 09/19/23 09/20/23 09/21/23 23:59 23:59 23:59 Intake Total 3820 / 3820 3986.67 / 3986.67 1220.83 / 1220.83 Balance 3820 / 3820 3986.67 / 3986.67 1220.83 / 1220.83 Lab / Micro Data 09/21/23 06:59 09/21/23 06:59 Micro: Microbiology 09/19/23 21:40 Stool Stool Occult Blood (ROSY) - Final Occult Blood Positive Physical Exam Narrative GENERAL: cooperative HEENT: Atraumatic; normocephalic EYES; Anicteric, Normal Conjunctiva NECK; supple, normal thyroid, RESPIRATORY: Diminished to auscultation CARDIOVASCULAR: Regular S1 S2, GI: soft, normoactive bowel sounds, : No Renal angle tenderness; EXTREMITIES: No edema, no clubbing, MUSCULOSKELETAL: no muscle wasting NEURO: Awake; no lateralizing signs. SKIN: No Rash PSYCH; Flat affect Assessment & Plan Assessment/Plan (1) Diverticulitis of colon with perforation: PLAN: Plan Patient is a 58-year-old lady admitted with abdominal pain imaging studies demonstrated acute sigmoid colonic diverticulitis with contained perforation containing gas along the superior aspect of the mid sigmoid colon. Admitted to regular nursing floor for further management 1. Acute colonic diverticulitis ? With perforation patient admitted to regular nursing floor managed conservatively with bowel rest, antibiotics with ciprofloxacin and Flagyl with consultation placed to general surgery ? 09/20/2023; Patient seen, abdominal pain improving. Iron studies undertaken the day prior consistent with iron deficiency anemia. Has been started on oral diet clear for now ? 09/21/2023;Patient seen held pain is improving. Plan is advance diet as tolerated with plans for discharge later on in the day 2. Tobacco dependence - Counseled on cessation, offered nicotine patch for tobacco cravings 3. Hypokalemia -Corrected per protocol 4. Anemia - Secondary to chronic disorder.. Ordered iron studies as well as stool guaiac, monitoring H&H and transfuse if patient becomes symptomatic or hemoglobin falls below 7 ? 09/20/2023 patient iron studies consistent with iron deficiency anemia informed of the result and the need for patient to undergo endoscopic evaluation with upper and lower following discharge 5. DVT prophylaxis ? SC Lovenox Time spent in the patient's overall evaluation,decision-making process, review of diagnostic data, adjustment of management, discussion with other providers, nursing nursing and ancillary staff involved in patient's care documentation, 35 Minutes Charges/Coding Visit Charges Inpatient E&M: 95592 Subs Hosp L2
--- NOTE | 2023-09-21 08:02 | PCM.PN.SRG ---
Subjective Subjective Patient still rates her pain at a 3/10 however denies pain with palpation of the abdomen. Patient is only been taking Toradol for the last 2 days. Tolerated clears Objective Data Objective Data Vital Signs: Vital Signs Temp Pulse Resp BP Pulse Ox O2 Del Method 97.8 F 69 16 97/56 L 97 Room Air 09/21/23 07:50 09/21/23 07:50 09/21/23 07:50 09/21/23 07:50 09/21/23 07:50 09/21/23 07:50 Oxygen Delivery Method Room Air Weight: 164 lb 0.383 oz Body Mass Index (BMI) 24.9 Intake & Output: Intake and Output for Last 24 Hours 09/19/23 09/20/23 09/21/23 23:59 23:59 23:59 Intake Total 3820 / 3820 3986.67 / 3986.67 1220.83 / 1220.83 Balance 3820 / 3820 3986.67 / 3986.67 1220.83 / 1220.83 Lab / Micro Data 09/20/23 07:07 09/20/23 07:07 Micro: Microbiology 09/19/23 21:40 Stool Stool Occult Blood (ROSY) - Final Occult Blood Positive Physical Exam Const oriented x3 and no apparent distress Resp normal respiratory effort Cardio regular rate GI soft to palpation Inspection: Negative for abdominal distention Palpation: Negative for tender Assessment & Plan Assessment/Plan (1) Diverticulitis of colon with perforation: PLAN: Will advance to full's if patient does well may advance to low fiber tonight and may be able to be DC'd tonight. continue Cipro/Flagyl IV recommended by another 10 days of antibiotics and for patient to follow-up in the office prior to end of antibiotics. Continue pain control Monique Landaverde M.D. Pager: [phone] [facility] [address] [place] [address], [facility], [address] [place] [address] Office: [phone] Charges/Coding Visit Charges Inpatient E&M: 63919 Subs Hosp L2
[2023-09-21 08:41] LABS: Absolute Lymphocyte Count 2.09 X10^3/uL (0.83-4.51); Absolute Neutrophil Count 5.1 X10^3/uL (2.0-7.7); Basophil# 0.05 X10^3/uL; Basophil% 0.6 % (0-1); Eosinophil# 0.15 X10^3/uL; Eosinophils% 1.8 % (0-5); Hematocrit 28.4 % (37-47); Hemoglobin 8.4 g/dL (12.0-15.0); Lymphocyte # 2.09 X10^3/ul (0.83-4.51); Lymphocyte % 25.6 % (19-41); Mean Corp Hgb Conc 29.6 g/dL (32-36); Mean Corpuscular Hgb 24.2 pg (27.0-32.0); Mean Corpuscular Volume 81.8 fL (81-99); Mean Platelet Vol. 9.7 fl (6.2-12.0); Monocyte# 0.75 X10^3/uL; Monocyte% 9.2 % (0-10); NRBC Flagged by Analyzer 0 % (0-5); Neutrophil # 5.09 X10^3/uL (2.7-7.7); Neutrophil % 62.2 % (47-70); Platelet Count 374 K/mm3 (150-450); RBC Distribution Width CV 15.8 % (11.6-14.6); RBC Distribution Width SD 46.4 fl (35.1-43.9); Red Blood Count 3.47 M/mm3 (4.2-5.4); White Blood Count 8.2 K/mm3 (4.4-11.0)
[2023-09-21 09:10] LABS: Anion Gap 3 (5-15); BUN 3 mg/dL (7-18); BUN/Creat Ratio 3.9 RATIO (10-20); Calcium,Total 8.6 mg/dL (8.5-10.1); Chloride 114 mmol/L (98-107); Creatinine, Serum 0.78 mg/dL (0.55-1.02); EST Glomerular Filtration Rate 81 mL/min (>60); Est Glom Filt Rate - Afr Amer 98 mL/min (>60); Estimated Creatinine Clearance 79.31 ml/min; Glucose 95 mg/dL (74-106); Potassium 3.9 mmol/L (3.5-5.1); Sodium Level 142 mmol/L (136-145)
[2023-09-21] MEDS: Na Biphos/Potassium Phosphate PACKET 1 PACKET PO (09:29)
[2023-09-21] MEDS: lamoTRIgine 150 MG Tablet 300 MG PO (09:29)
[2023-09-21] MEDS: Ciprofloxacin 400 MG/200 ML BAG 200 MG IV (09:35)
[2023-09-21 09:45] VITALS: O2SAT 97
[2023-09-21 13:57] VITALS: BP 112/52; PULSE 73; RESP 17; TEMP 36.7; O2SAT 100
--- NOTE | 2023-09-21 14:33 | PCM.DC.SUM ---
Providers Date of Admission: 09/18/23 Date of Discharge: 09/21/23 Primary Care Physician: Dr. Taylor Schneider, DO Consultations 09/18/23 21:00 Consult: General Surgery Routine Consulting Provider: Monique Landaverde Reason for Consult: perforated diverticulitis EMERGENT Consult: No MD Notified: Yes Date Notified: 09/18/23 Time Notified: 20:37 Method of Notification: Verbal Reason For Visit: PERFORATED DIVERTICULITIS Diagnosis Discharge Diagnosis (1) Diverticulitis of colon with perforation: Status: Acute Code(s): K57.20 - Diverticulitis of large intestine with perforation and abscess without bleeding Plan Patient is a 58-year-old lady admitted with abdominal pain imaging studies demonstrated acute sigmoid colonic diverticulitis with contained perforation containing gas along the superior aspect of the mid sigmoid colon. Admitted to regular nursing floor for further management 1. Acute colonic diverticulitis ? With perforation patient admitted to regular nursing floor managed conservatively with bowel rest, antibiotics with ciprofloxacin and Flagyl with consultation placed to general surgery ? 09/20/2023; Patient seen, abdominal pain improving. Iron studies undertaken the day prior consistent with iron deficiency anemia. Has been started on oral diet clear for now ? 09/21/2023;Patient seen held pain is improving. Plan is advance diet as tolerated with plans for discharge later on in the day 2. Tobacco dependence - Counseled on cessation, offered nicotine patch for tobacco cravings 3. Hypokalemia -Corrected per protocol 4. Anemia - Secondary to chronic disorder.. Ordered iron studies as well as stool guaiac, monitoring H&H and transfuse if patient becomes symptomatic or hemoglobin falls below 7 ? 09/20/2023 patient iron studies consistent with iron deficiency anemia informed of the result and the need for patient to undergo endoscopic evaluation with upper and lower following discharge 5. DVT prophylaxis ? SC Lovenox Time spent in the patient's overall evaluation,decision-making process, review of diagnostic data, adjustment of management, discussion with other providers, nursing nursing and ancillary staff involved in patient's care documentation, 35 Minutes Medications at Discharge Home Medications lamotrigine 150 mg tablet 300 mg PO DAILY depression 09/18/23 sertraline 100 mg tablet 150 mg PO Q24H depression 09/18/23 ciprofloxacin HCl 500 mg tablet (Cipro) 500 mg PO BID #14 tabs 09/21/23 metronidazole 500 mg tablet 500 mg PO TID #21 tabs 09/21/23 oxycodone 5 mg tablet 5 mg PO Q4H PRN PRN Pain Score 4-10 5 days #20 tabs 09/21/23 Hospital Course Summary of Care Provided Minutes Spent on Discharge: 35 Physical Exam Narrative GENERAL: cooperative HEENT: Atraumatic; normocephalic EYES; Anicteric, Normal Conjunctiva NECK; supple, normal thyroid, RESPIRATORY: Diminished to auscultation CARDIOVASCULAR: Regular S1 S2, GI: soft, normoactive bowel sounds, : No Renal angle tenderness; EXTREMITIES: No edema, no clubbing, MUSCULOSKELETAL: no muscle wasting NEURO: Awake; no lateralizing signs. SKIN: No Rash PSYCH; Flat affect Weight / BMI Weight Weight: 74.4 kg Body Mass Index (BMI) 24.9 ABG / Lab / Microbiology Data 09/21/23 06:59 09/21/23 06:59 Laboratory: Laboratory Results - last 24 hr 09/21/23 06:59: WBC 8.2, RBC 3.47 L, Hgb 8.4 L, Hct 28.4 L, MCV 81.8, MCH 24.2 L, MCHC 29.6 L, RDW Std Deviation 46.4 H, RDW Coeff of Tashi 15.8 H, Plt Count 374, MPV 9.7, Immature Gran % (Auto) 0.600, Neut % (Auto) 62.2, Lymph % (Auto) 25.6, [place] % (Auto) 9.2, Eos % (Auto) 1.8, Baso % (Auto) 0.6, Absolute Neuts (auto) 5.1, Absolute Lymphs (auto) 2.09, Nucleated RBC % 0, Sodium 142, Potassium 3.9, Chloride 114 H, Carbon Dioxide 25.0, Anion Gap 3 L, BUN 3 L, Creatinine 0.78, Estim Creat Clear Calc 79.31, Est GFR (MDRD) Af Amer 98, Est GFR (MDRD) Non-Af 81, BUN/Creatinine Ratio 3.9 L, Glucose 95, Calcium 8.6 Microbiology: Microbiology 09/19/23 21:40 Stool Stool Occult Blood (ROSY) - Final Occult Blood Positive D/C Instructions Discharge Diet: Light diet - advance as tolerated Discharge Activity: Return to Normal Activity Call your doctor if you observe: Fever of 101 or Higher, Shortness of breath, Fainting spells and Chest pain Meaningful Use Info Meaningful Use Diagnoses (Choose all that apply): None applicable Discharge Plan Admission Admit Date/Time: 09/18/23 20:36 Attending Provider: Gato Hayes Primary Care Provider: Taylor Schneider Consulting Providers: Monique Landaverde; Marco A Hu Discharge Orders/Prescriptions Prescriptions: New oxycodone 5 mg Tablet 5 mg PO Q4H PRN PRN (Reason: Pain Score 4-10) 5 Days Qty: 20 0RF metronidazole 500 mg tablet 500 mg PO TID Qty: 21 0RF ciprofloxacin HCl [Cipro] 500 mg tablet 500 mg PO BID Qty: 14 0RF Continued sertraline 100 mg tablet 150 mg PO Q24H Patient Comments: Take 1.5 Tablet By Oral Route at bedtime. lamotrigine 150 mg tablet 300 mg PO DAILY Patient Comments: Take 1 Tablet By Oral Route 2 time(s) per day Discontinued nitrofurantoin monohyd/m-cryst [Macrobid] 100 mg capsule 100 mg PO BID Rx Instructions: must administer with a meal/food Referrals / Follow Up: Taylor Schneider DO [Primary Care Provider] - Mitzi Wharton MD [Med Staff - Certified Physical Therapist Assistant] - Within 1 Week Monique Landaverde MD [Med Staff - Active Staff] - Within 1 Week Disposition Disposition (needs filled in before D/C Order can be placed): Home, Self Care Charges/Coding Visit Charges Inpatient E&M: 25508 Disch Hosp >30min
--- NOTE | 2023-09-21 15:44 | PHA.DC.MC.R ---
Pharmacy [facility] has performed discharge medication reconciliation and counseling for this patient. 1. CIPROFLOXACIN 500MG PO BID X 7 DAYS 2. METRONIDAZOLE 500MG PO TID X 7 DAYS 3. OXYCODONE 5MG PO Q4H PRN PAIN 4-10 The patient's discharge medication list was reviewed for discrepancies and discrepancies were resolved. The patient was counseled on the following discharge medications and changes in medications for homegoing were reviewed. The Reason for Use, instructions for use, and potential side effects were reviewed for all new medications. The patient's questions regarding all of their medications were answered. The patient was able to verbally demonstrate an understanding of their discharge medications. Medications at Discharge Home Medications lamotrigine 150 mg tablet 300 mg PO DAILY depression 09/18/23 sertraline 100 mg tablet 150 mg PO Q24H depression 09/18/23 ciprofloxacin HCl 500 mg tablet (Cipro) 500 mg PO BID #14 tabs 09/21/23 metronidazole 500 mg tablet 500 mg PO TID #21 tabs 09/21/23 oxycodone 5 mg tablet 5 mg PO Q4H PRN PRN Pain Score 4-10 5 days #20 tabs 09/21/23
[2023-09-21 17:35] VITALS: BP 117/62; PULSE 76; RESP 16; TEMP 37.1; O2SAT 100
== END 2023-09-21 17:30 | disposition home or self-care (01) | DRG 392 ==
LOC: ED 20:14 → MS3 20:45
PROVIDERS: Emergency Provider Emergency Medicine; PCP Family Medicine; Visit Provider Internal Medicine
DX: K57.20 Diverticulitis of large intestine with perforation and abscess without bleeding (principal); D50.9 Iron deficiency anemia, unspecified; E87.6 Hypokalemia; F17.210 Nicotine dependence, cigarettes, uncomplicated; Z80.0 Family history of malignant neoplasm of digestive organs
CPT/HCPCS: 36415; 74176; 80048; 82274; 82607; 82728; 83540; 83550; 83735; 84100; 85025; 85045; 99284; 99406; J7030; A4216; J0744; J2405; J7799

== ENCOUNTER 2023-10-03 13:32 | Emergency (ER) | payer BC, SELFPAY ==
[2023-10-03 13:32] VITALS: BP 122/103; PULSE 84; RESP 16; TEMP 35.8; O2SAT 99; BMI 25.0
[2023-10-03 13:45] VITALS: BP 122/103; PULSE 84; RESP 16; TEMP 35.8; O2SAT 99
--- NOTE | 2023-10-03 13:45 | CT_ITS ---
STUDY: CT ABDOMEN AND PELVIS WITH CONTRAST REASON FOR EXAM: Female, 58 years old patient with left lower quadrant (LLQ) abdominal pain. History of diverticulitis. RADIATION DOSAGE (If Supplied By Facility): CTDIvol = ( 10.88 ) mGy, DLP = ( 587.35 ) mGycm TECHNIQUE: Transaxial images were obtained from the dome of the diaphragm to the symphysis pubis without oral contrast. 100 ml of IV Isovue-370 was administered. Sagittal and coronal images were reconstructed. Individualized dose optimization techniques were used for this CT. COMPARISON: CT of abdomen and pelvis dated September 18, 2023. FINDINGS: The visualized lung bases are unremarkable. The visualized portions of the heart are within normal limits. There is decreased attenuation of the liver consistent with steatosis. Normal gallbladder and extrahepatic biliary system. Normal spleen. Normal pancreas. Normal bilateral adrenal glands. Normal right kidney. Normal left kidney. Normal visualized stomach. There is no obvious dilated bowel, ascites or pneumoperitoneum. There is liquid stool visible in the colon consistent with diarrhea. There is diffuse abnormal thickening of the paz of the colon with some acute inflammation adjacent to the rectum and sigmoid colon. Findings suggest acute infectious or inflammatory colitis. The appendix is visualized and appears normal. There is diffuse atherosclerotic calcification of the abdominal aorta and common iliac arteries, without a demonstrated aneurysm. Normal inferior vena cava. Normal retroperitoneum. Normal urinary bladder. Normal visualized uterus. There is a small amount of pelvic fluid probably secondary to the infectious inflammatory colitis. Normal abdominal wall. Normal osseous structures. CT/Abdomen/Pelvis W IV Cont ONLY IMPRESSION: Findings are consistent with diffuse infectious or inflammatory colitis most severe involving the sigmoid colon. Electronically Signed: Nina Ellis MD at 16:28 [facility] ,
--- NOTE | 2023-10-03 13:47 | ED.VIS.GI ---
HPI HPI - GI History of Present Illness Chief Complaint: Abd Pain Detail of Chief Complaint: Lower abdominal pain. Recent hospitalization for diverticulitis. Informant: patient and family Abdominal Pain/Flank Pain Onset: Today Context: Gradual Onset Timing: Continuous Current Severity: Mild Maximum Severity: Moderate Worsened by: Nothing Relieved by: Nothing Nausea/Vomiting/Emesis GI Symptom: Negative for Nausea or Vomiting Diarrhea/Melena/Hematochezia GI Symptom: Positive for Diarrhea Onset: Days Stool Quality: Positive for Loose Severity: Mild Associated Symptoms Associated Symptoms: Negative for Dysuria, Frequency, Hematuria or Urgency Narrative Narrative: 58-year-old female no prior abdominal surgeries. History of anemia and recently diagnosed and hospitalized for diverticulitis. Was treated with Cipro and Flagyl and recently stopped the antibiotics because she was finished. Thought she was doing much better. Has developed loose stools with the antibiotics. Last night and this morning had increasing left lower lower quadrant abdominal pain. No fever. No vomiting. Called her surgeon's office who told her to come to the emergency department for evaluation. She denies any fever. No dysuria. Prior similar symptoms: Yes Recent Illness/Hospitalization: Yes PFSH PFSH Medical History Depression Home Medications lamotrigine 150 mg tablet 300 mg PO DAILY depression 09/18/23 [History Last Taken 09/17/23] sertraline 100 mg tablet 150 mg PO Q24H depression 09/18/23 [History Last Taken 09/17/23] ciprofloxacin HCl 500 mg tablet (Cipro) 500 mg PO BID #14 tabs 09/21/23 [Rx Last Taken Unknown] metronidazole 500 mg tablet 500 mg PO TID #21 tabs 09/21/23 [Rx Last Taken Unknown] oxycodone 5 mg tablet 5 mg PO Q4H PRN PRN Pain Score 4-10 5 days #20 tabs 09/21/23 [Rx Last Taken Unknown] Allergy/AdvReac Type Severity Reaction Status Date / Time Penicillins Allergy Hives Verified 10/03/23 13:32 Family History Mother Cancer Patient's mother has gallbladder cancer with metastasis to the liver. Social History Smoking Status: Current every day smoker tobacco type: cigarettes substance use type: marijuana ROS ROS ED ROS Narrative Lower abdominal pain. Loose stools. Review of Systems ROS Unobtainable: Denies due to encephalopathy Constitutional Constitutional ED: Denies chills or fever(s) ENT ENT ED: Denies ear pain Cardiovascular Cardiovascular: Denies chest pain Respiratory/Chest Respiratory/Chest: Denies cough or dyspnea Gastrointestinal Gastrointestinal: Reports abdominal pain and diarrhea; Denies constipation, melena, nausea or vomiting Genitourinary Genitourinary ED: Denies dysuria or hematuria Musculoskeletal Musculoskeletal: Denies arthralgias Integumentary Denies abscess Neurologic Neurologic: Denies headache(s) Psychiatric Psychiatric: Denies anxiety Endocrine Endocrinology: Denies polydipsia Hematologic/Lymphatic Hematologic/Lymphatic: Denies easy bleeding Allergic/Immunologic Allergic/Immunologic ED: Denies mouth swelling or tongue swelling EXAM Physical Exam Narrative Exam Narrative: 58-year-old female no acute distress. Vital signs are stable afebrile. H EENT exam unremarkable. Lungs clear to auscultation. Heart regular rhythm no murmur. Abdomen soft, nondistended normal bowel sounds without peritoneal signs. Mild tenderness in the lower quadrants more so on the left. No hernia or mass. No obstruction. No pulsatile mass. Moving all 4 extremities. Nontender no edema. Back nontender. Neurologically she is awake and alert with no focal motor deficits. Const Vital Signs: 10/03/23 13:32 10/03/23 13:45 10/03/23 15:37 Temperature 96.4 F L 96.4 F L 98 F Temperature Source Temporal Temporal Temporal Pulse Rate 84 84 77 Respiratory Rate 16 16 16 Blood Pressure 122/103 H 122/103 H 130/65 H Blood Pressure Mean 109 109 86 Pulse Ox 99 99 100 Oxygen Delivery Method Room Air Room Air Room Air Positive well nourished and well developed; Negative for cachectic, contractures or unkempt General Appearance ED: well developed and NAD; Negative for unkempt, cachectic, contractures or pallor Nutritional Appearance: Negative for cachectic HEENT Reports moist mucous membranes normocephalic and atraumatic; Negative for trauma or tenderness Eyes PERRL and EOMs intact bilaterally General Eye ED: Negative for pale conjunctiva, scleral icterus or other Neck no lymphadenopathy, supple and no JVD General: Negative for tenderness Carotids: Negative for other Lymph Lymphatic: Negative for other Resp normal respiratory effort and clear to auscultation bilaterally Effort and Inspection: Negative for respiratory distress Auscultation: Negative for rales, rhonchi or wheezes Cardio regular rate, regular rhythm, S1 normal heart sound, S2 normal heart sound and no murmurs Rate: Negative for bradycardia or tachycardic Rhythm: Negative for abnormal rhythm GI non-distended and no masses; Negative for non-tender Inspection: Negative for abdominal distention Auscultation: normoactive bowel sounds Palpation: soft and tender; Negative for guarding, rigid, hernia, mass, pulsatile mass or rebound tenderness present Back/Spine no CVA tenderness General Back: Negative for CVA tenderness Cervical Spine: Negative for cervical spine tenderness Thoracic Spine / Upper Back: Negative for thoracic spinal tenderness Lumbar Spine / Lower Back: Negative for lumbar spinal tenderness Coccyx: Negative for other Extremity full ROM General Extremety ED: Negative for edema or tenderness General Extremity: Negative for edema Neuro CN's II-XII intact bilaterally and moves all extremities Sensorium / Orientation: alert, oriented to person, oriented to place and oriented to time; Negative for orientation impaired, confused, lethargic or stuporous Motor Exam: strength 5/5 throughout Psych mental status grossly normal and thought process normal Appearance: Negative for unkempt Attitude: No agitated Mood & Affect: Negative for depressed, anxious or tearful Skin no wounds General Skin Exam: Negative for jaundice or pallor Lesions: no lesions Rashes: no rashes Trauma: Negative for abrasion Nails: Negative for discolored MDM MDM MDM Narrative Medical decision making narrative: 58-year-old female recently admitted and treated for diverticulitis went home on oral antibiotics Cipro and Flagyl. Finish the course of treatment. Developed increasing abdominal pain last night and this morning. Denies fever. No prior abdominal surgeries. CAT scan labs pending. With morphine for pain and Zofran. Repeat exam patient is doing well at 2:45 PM. Pain is improved with IV morphine. She is currently in CAT scan. Repeat exam patient doing well at 4:33 PM. Abdomen benign. We went over test results specifically her CAT scan. Outpatient follow-up with her general surgeon Dr. Landaverde. History & Record Review Discussion w/independent historian: Patient and Family Additional record(s) reviewed:: Prior inpatient record, Prior outpatient record, Prior ED visit, Prior labs and No prior records Lab Data Attestation: I reviewed the patient's lab results. Lab results narrative: CBC shows white count of 14.6. H&H is 10.7 and 35 0.9 consistent with her prior anemia. Platelet count of 500. Electrolytes show a gap of 4. Normal BUN of 12 creatinine 0.9. Glucose of 119. UA is normal. CAT scan shows inflammatory or infectious colitis. No perforation. No free air. No abscess. Read by the radiologist. Reviewed by me. Labs: Laboratory Results - last 24 hr 10/03/23 10/03/23 13:50 15:32 WBC 14.6 H RBC 4.43 Hgb 10.7 L Hct 35.1 L MCV 79.2 L MCH 24.2 L MCHC 30.5 L RDW Std Deviation 46.0 H RDW Coeff of Tashi 16.0 H Plt Count 500 H MPV 8.7 Immature Gran % (Auto) 0.500 Neut % (Auto) 83.6 H Lymph % (Auto) 8.6 L [place] % (Auto) 6.2 Eos % (Auto) 0.8 Baso % (Auto) 0.3 Absolute Neuts (auto) 12.2 H Absolute Lymphs (auto) 1.26 Nucleated RBC % 0 Sodium 135 L Potassium 3.8 Chloride 106 Carbon Dioxide 25.0 Anion Gap 4 L BUN 12 Creatinine 0.90 Estim Creat Clear Calc 68.73 Est GFR (MDRD) Af Amer 83 Est GFR (MDRD) Non-Af 69 BUN/Creatinine Ratio 13.4 Glucose 119 H Calcium 9.2 Urine Color Yellow Urine Clarity Clear Urine pH 6.0 Ur Specific [place] 1.010 Urine Protein Negative Urine Glucose (UA) Normal Urine Ketones Negative Urine Occult Blood Negative Urine Nitrite Negative Urine Bilirubin Negative Urine Urobilinogen Normal Ur Leukocyte Esterase 25 H Urine RBC 0 SEEN Urine WBC 0-5 SEEN Ur Squamous Epith Cells 0-5 SEEN Urine Bacteria 0 SEEN Urine Mucus 0 SEEN Radiography Diagnostic Testing: Clinical Impression(s) from Imaging Studies Abdomen/Pelvis CT 10/03/23 13:45 IMPRESSION: Findings are consistent with diffuse infectious or inflammatory colitis most severe involving the sigmoid colon. Electronically Signed: Nina Ellis MD at 16:28 EST Reading Location ID and State: [address] [place] [address] , Service support , Discharge Plan Triage Chief Complaint: Abd Pain ED Provider: Jm Wilkinson Dx/Rx/DC Orders Clinical Impression: History of diverticulitis, Chronic anemia, Abdominal pain Instructions: Abdominal Pain Prescriptions: No Action sertraline 100 mg tablet 150 mg PO Q24H Patient Comments: Take 1.5 Tablet By Oral Route at bedtime. lamotrigine 150 mg tablet 300 mg PO DAILY Patient Comments: Take 1 Tablet By Oral Route 2 time(s) per day oxycodone 5 mg Tablet 5 mg PO Q4H PRN PRN (Reason: Pain Score 4-10) 5 Days Qty: 20 0RF metronidazole 500 mg tablet 500 mg PO TID Qty: 21 0RF ciprofloxacin HCl [Cipro] 500 mg tablet 500 mg PO BID Qty: 14 0RF Primary Care Provider: Taylor Schneider Referrals: Taylor Schneider DO [Primary Care Provider] - Monique Landaverde MD [Med Staff - Active Staff] - As soon as possible Activity Restrictions/Additional Instructions: Motrin and Tylenol for pain. Use your pain medication as needed. Reschedule your follow-up appointment with the surgeon Dr. Landaverde. Disposition Disposition: Home, Self Care
[2023-10-03] MEDS: Morphine 4 MG/ML Syringe 6 MG IV (13:56)
[2023-10-03] MEDS: Ondansetron 4 MG/2 ML Vial IV (13:56)
[2023-10-03 13:59] LABS: Absolute Lymphocyte Count 1.26 X10^3/uL (0.83-4.51); Absolute Neutrophil Count 12.2 X10^3/uL (2.0-7.7); Basophil# 0.04 X10^3/uL; Basophil% 0.3 % (0-1); Eosinophil# 0.11 X10^3/uL; Eosinophils% 0.8 % (0-5); Hematocrit 35.1 % (37-47); Hemoglobin 10.7 g/dL (12.0-15.0); Lymphocyte # 1.26 X10^3/ul (0.83-4.51); Lymphocyte % 8.6 % (19-41); Mean Corp Hgb Conc 30.5 g/dL (32-36); Mean Corpuscular Hgb 24.2 pg (27.0-32.0); Mean Corpuscular Volume 79.2 fL (81-99); Mean Platelet Vol. 8.7 fl (6.2-12.0); Monocyte# 0.91 X10^3/uL; Monocyte% 6.2 % (0-10); NRBC Flagged by Analyzer 0 % (0-5); Neutrophil % 83.6 % (47-70); Platelet Count 500 K/mm3 (150-450); Red Blood Count 4.43 M/mm3 (4.2-5.4); White Blood Count 14.6 K/mm3 (4.4-11.0)
[2023-10-03 14:10] LABS: Anion Gap 4 (5-15); BUN 12 mg/dL (7-18); BUN/Creat Ratio 13.4 RATIO (10-20); Calcium,Total 9.2 mg/dL (8.5-10.1); Chloride 106 mmol/L (98-107); EST Glomerular Filtration Rate 69 mL/min (>60); Est Glom Filt Rate - Afr Amer 83 mL/min (>60); Estimated Creatinine Clearance 68.73 ml/min; Glucose 119 mg/dL (74-106); Potassium 3.8 mmol/L (3.5-5.1); Sodium Level 135 mmol/L (136-145)
[2023-10-03 15:37] VITALS: BP 130/65; PULSE 77; RESP 16; TEMP 36.6; O2SAT 100
[2023-10-03 15:40] LABS: Bacteria 0 SEEN /hpf (None Seen); Mucous, Urine 0 SEEN /hpf (<or=2+); Red Blood Cells-Urine 0 SEEN /hpf (0-5)
[2023-10-03 15:51] LABS: Color, Urine Yellow (Yellow); Glucose, Dipstick Normal (Normal); Ketone-Dipstick Negative (Negative); Leukocyte Esterase-Dipstick 25 /ul (Negative); Nitrite-Dipstick Negative (Negative); Occult Blood-Urine Negative /ul (Negative); Protein-Dipstick Negative (Negative); Urine Bilirubin Dipstick Negative (Negative); Urine Clarity Clear (Clear); Urine Urobilinogen Normal (Normal)
[2023-10-03 16:14] LABS: Squamous Epithelial Cells - UA 0-5 SEEN /hpf (5-10); White Blood Cells 0-5 SEEN /hpf (0-5)
== END 2023-10-03 16:43 | disposition home or self-care (01) ==
PROVIDERS: Emergency Provider Emergency Medicine; PCP Family Medicine; Visit Provider Emergency Medicine
DX: R10.32 Left lower quadrant pain (principal); F17.210 Nicotine dependence, cigarettes, uncomplicated; F32.A Depression, unspecified; Z79.899 Other long term (current) drug therapy; D64.9 Anemia, unspecified; Z87.19 Personal history of other diseases of the digestive system
CPT/HCPCS: 74177; 80048; 81001; 85025; 96374; 96375; 99283; J7030; Q9967; A4216; J2405

== ENCOUNTER 2023-10-05 03:52 | Inpatient (IN) | payer BC, SELFPAY ==
[2023-10-05] VITALS (11 sets, daily range): BP systolic 100–141; BP diastolic 48–70; PULSE 70–91; RESP 16–18; TEMP 36.4–37.2; O2SAT 91–97; BMI 24.7; BMI 24.8; BMI 24.9
--- NOTE | 2023-10-05 04:08 | EX.ED.DYSGE1 ---
HPI History of Present Illness Chief Complaint: Abd Pain Informant: patient Narrative Narrative: Patient presents with worsening abdominal pain. This patient was admitted on about the third of this month due to diverticulitis with a small perforation. No drainable abscess. She was placed on Cipro Flagyl continued and completed that treatment as an outpatient. She also did do clear liquids. She then slowly progressed through more solid food. She states she is only had about 1 day where she felt well since she was diagnosed. She was back in here couple days with increasing pain again. She still having some diarrhea. It is somewhat malodorous and it is darker. No red blood. No history of C. difficile or GI bleeding. No blood thinners. She is not having fevers. But she states the pain is getting worse and worse very deep across her lower abdomen. She can urinate normally but when she urinates the pain in her lower abdomen is worse. It is not actually dysuria but its deeper pain. She has had no history of any intra-abdominal surgery. PFSH PFSH Medical History Depression Smoker Home Medications lamotrigine 150 mg tablet 300 mg PO DAILY depression 09/18/23 [History Last Taken 09/17/23] sertraline 100 mg tablet 150 mg PO Q24H depression 09/18/23 [History Last Taken 09/17/23] ciprofloxacin HCl 500 mg tablet (Cipro) 500 mg PO BID #14 tabs 09/21/23 [Rx Last Taken Unknown] metronidazole 500 mg tablet 500 mg PO TID #21 tabs 09/21/23 [Rx Last Taken Unknown] oxycodone 5 mg tablet 5 mg PO Q4H PRN PRN Pain Score 4-10 5 days #20 tabs 09/21/23 [Rx Last Taken Unknown] Allergy/AdvReac Type Severity Reaction Status Date / Time Penicillins Allergy Hives Verified 10/03/23 13:32 Family History Mother Cancer Patient's mother has gallbladder cancer with metastasis to the liver. Social History Smoking Status: Current every day smoker tobacco type: cigarettes substance use type: marijuana ROS ROS ED ROS Narrative A complete review of systems was performed and is negative except as documented in the history of present illness. Some specific details below. Constitutional: No recent fevers or chills. She does have generalized malaise ENT: No difficulty swallowing. No swelling. No pain. CV: No chest pain or palpitations. Respiratory: No dyspnea. No hemoptysis. No difficulty taking breaths. GI: Please see history of present illness. : No frequency dysuria or hematuria. The pain in her abdomen is worse with urination but not actual dysuria. Musculoskeletal: No recent trauma. No pains. Skin: No rash. Nondiaphoretic. Neuro: No weakness or numbness. Endocrine: No polyuria or polydipsia. EXAM Physical Exam Narrative Exam Narrative: CONSTITUTIONAL: Patient is nontoxic in appearance. The patient looks like she does not feel well. HEENT: No notable trauma. Mucous membranes moist. EYES: No conjunctival injection. No icterus. CARDIOVASCULAR: Regular rate. Regular rhythm. No notable murmur. No JVD. RESPIRATORY: No respiratory distress. Breathing is unlabored. No wheezes. No rhonchi. No rales. No pain with a deep breath. GASTROINTESTINAL: Not distended. Bowel sounds are slightly quiet with occasional increased borborygmi. She does have tenderness throughout the lower abdomen. But no rebound or guarding. GENITOURINARY: No tenderness over the bladder. No CVA tenderness. MUSCULOSKELETAL: Atraumatic. No peripheral edema. NEUROLOGICAL: Patient is alert and appropriate. No focal deficit noted. SKIN: No noted rashes. No diaphoresis. PSYCHIATRIC: Patient is calm. Mood is appropriate. Const Vital Signs: 10/05/23 03:53 10/05/23 04:04 Temperature 97.5 F L Temperature Source Oral Pulse Rate 89 91 Respiratory Rate 16 16 Blood Pressure 141/70 H 139/68 H Blood Pressure Mean 93 91 Pulse Ox 97 96 Oxygen Delivery Method Room Air Room Air MDM MDM MDM Narrative Medical decision making narrative: Patient CBC shows mildly low hemoglobin at 10 which is about where she has been recently. Her white count was going back up and is now 15.7. Lets are normal. Patient's electrolytes show mildly low potassium at 3.0. Renal function is preserved. Glucose is minimally up at 114. Liver function test. My independent interpretation of the patient's CT shows a lot of inflammatory stranding in this sigmoid colon down low. Question of abscess or large diverticula with air. I did discuss this with the radiologist and there read is sigmoid colitis and some in inflammation even up the descending colon in other parts of the colon but heavily concentrated in the sigmoid region. He did state that this is a new fluid-filled gas possible abscess it is hard to tell if it is intramural or extramural. It is about 2.1 cm. But this is new and overall worsening from her recent scan. With her rising white count, increasing pain, worsening scan and development of an abscess or what appears to be an abscess I think she does need to come in the hospital. I discussed case with the hospitalist. I then did call the surgeon. He will see her in consultation this morning. Lab Data Attestation: I reviewed the patient's lab results. Labs: Laboratory Results - last 24 hr 10/05/23 04:20 WBC 15.7 H RBC 4.11 L Hgb 10.0 L Hct 31.4 L MCV 76.4 L MCH 24.3 L MCHC 31.8 L RDW Std Deviation 43.9 RDW Coeff of Tashi 16.1 H Plt Count 431 MPV 9.2 Immature Gran % (Auto) 0.500 Neut % (Auto) 77.1 H Lymph % (Auto) 12.1 L Delta % (Auto) 8.7 Eos % (Auto) 1.3 Baso % (Auto) 0.3 Absolute Neuts (auto) 12.1 H Absolute Lymphs (auto) 1.89 Nucleated RBC % 0 Sodium 137 Potassium 3.0 L Chloride 101 Carbon Dioxide 25.0 Anion Gap 11 BUN 6 L Creatinine 0.75 Estim Creat Clear Calc 82.48 Est GFR (MDRD) Af Amer 102 Est GFR (MDRD) Non-Af 84 BUN/Creatinine Ratio 8.0 L Glucose 114 H Calcium 8.9 Total Bilirubin 0.30 AST 12 L ALT 14 Alkaline Phosphatase 61 Total Protein 6.9 Albumin 3.1 L Globulin 3.8 Albumin/Globulin Ratio 0.8 L Discharge Plan Dx/Rx/DC Orders Clinical Impression: Diverticulitis, Failure of outpatient treatment, Colonic diverticular abscess Disposition Disposition: Acute Care [facility]
--- NOTE | 2023-10-05 04:25 | ED.RN ---
unable to document on dec d/ orders not crossing over, NS bolus , morphine 4mg iv and zofran 4mg iv given
--- NOTE | 2023-10-05 04:30 | CT_ITS ---
EXAM: CT ABDOMEN AND PELVIS WITH INTRAVENOUS CONTRAST CLINICAL INDICATION: ABDOMEN PAIN, DYSURIA, H/O DIVERTICULITIS W/ PERFORATION TECHNIQUE: Helically acquired images were obtained of the abdomen and pelvis with intravenous contrast. This CT exam was performed using one or more of the following dose reduction techniques: automated exposure control, adjustment of the mA and/or kV according to patient size, and/or use of iterative reconstruction technique. CONTRAST: 100 cc of Isovue-370 IV. RADIATION DOSE: CTDIvol = 14.42 mGy, DLP = 652.60 mGy-cm COMPARISON: 10/03/2023. FINDINGS: LOWER THORAX: Subsegmental atelectasis in the lung bases bilaterally. No cardiomegaly. No significant pericardial effusion. ABDOMEN: LIVER: Unremarkable. Homogeneous. No focal mass. GALLBLADDER AND BILE DUCTS: Unremarkable. No calcified gallstones. No gallbladder distention or wall edema. No intra- or extrahepatic biliary ductal dilation. PANCREAS: Unremarkable. No focal cystic or solid mass. SPLEEN: Unremarkable. Normal size without focal cystic or solid mass. ADRENALS: Unremarkable. No nodules. KIDNEYS AND URETERS: Unremarkable. Normal renal size and position. No hydronephrosis. STOMACH AND BOWEL: Mild wall thickening of the descending colon and severe edematous wall thickening of the sigmoid colon that may be slightly worse than on the previous exam consistent with severe colitis. There may be mild wall thickening of the rest of the colon. There is a new small collection of fluid and gas measuring 2.1 cm in diameter immediately adjacent to or involving the superior aspect of the wall of the distal sigmoid colon in the mid pelvis. No stomach or bowel distention. PELVIS: APPENDIX: No evidence of acute appendicitis. BLADDER: Unremarkable. REPRODUCTIVE: Unremarkable as visualized. No mass. ABDOMEN and PELVIS: INTRAPERITONEAL SPACE: Slight ascites. No free air. BONES/JOINTS: Unremarkable. No suspicious lytic or blastic abnormality. SOFT TISSUES: Unremarkable. No discrete abdominal or pelvic wall hernia. VASCULATURE: Unremarkable. Abdominal aorta is non-dilated. LYMPH NODES: Unremarkable. No enlarged lymph nodes. CT/Abdomen/Pelvis W IV Cont ONLY IMPRESSION: 1. Worsening severe colitis of the sigmoid colon with probable mild colitis involving the rest of the colon. Development of a new 2.1 cm abscess in the sigmoid colon low in the pelvis that may either be intramural or immediately adjacent to the colon. 2. Slight ascites. 3. Subsegmental atelectasis in the lung bases bilaterally. N.B. : The above Results were Read Back by Joseph Verde MD to Tomer Haney MD, and understanding confirmed on 10/05/2023 05:07:24 (ET). Electronically Signed: Joseph Verde MD at 5:10 EST ,
[2023-10-05 04:44] LABS: Absolute Lymphocyte Count 1.89 X10^3/uL (0.83-4.51); Absolute Neutrophil Count 12.1 X10^3/uL (2.0-7.7); Basophil# 0.04 X10^3/uL; Basophil% 0.3 % (0-1); Eosinophil# 0.21 X10^3/uL; Eosinophils% 1.3 % (0-5); Hematocrit 31.4 % (37-47); Lymphocyte # 1.89 X10^3/ul (0.83-4.51); Lymphocyte % 12.1 % (19-41); Mean Corp Hgb Conc 31.8 g/dL (32-36); Mean Corpuscular Hgb 24.3 pg (27.0-32.0); Mean Corpuscular Volume 76.4 fL (81-99); Mean Platelet Vol. 9.2 fl (6.2-12.0); Monocyte# 1.36 X10^3/uL; Monocyte% 8.7 % (0-10); NRBC Flagged by Analyzer 0 % (0-5); Neutrophil # 12.08 X10^3/uL (2.7-7.7); Neutrophil % 77.1 % (47-70); Platelet Count 431 K/mm3 (150-450); RBC Distribution Width CV 16.1 % (11.6-14.6); RBC Distribution Width SD 43.9 fl (35.1-43.9); Red Blood Count 4.11 M/mm3 (4.2-5.4); White Blood Count 15.7 K/mm3 (4.4-11.0)
[2023-10-05 04:57] LABS: ALB/GLOB Ratio 0.8 RATIO (0.9-2.4); AST(SGOT) 12 U/L (15-37); Alanine Aminotransfer ALT/SGPT 14 U/L (13-56); Albumin, Serum 3.1 g/dL (3.2-5.0); Alkaline Phosphatase 61 U/L (45-117); Anion Gap 11 (5-15); BUN 6 mg/dL (7-18); Calcium,Total 8.9 mg/dL (8.5-10.1); Chloride 101 mmol/L (98-107); Creatinine, Serum 0.75 mg/dL (0.55-1.02); EST Glomerular Filtration Rate 84 mL/min (>60); Est Glom Filt Rate - Afr Amer 102 mL/min (>60); Estimated Creatinine Clearance 82.48 ml/min; Globulin 3.8 g/dL (2.2-4.2); Glucose 114 mg/dL (74-106); Protein, Total 6.9 g/dL (6.4-8.2); Sodium Level 137 mmol/L (136-145)
--- NOTE | 2023-10-05 05:14 | PCM.HP.STD ---
[facility] - General General Date of Admission: 10/05/23 Date of Service: 10/05/23 Chief Complaint: Abdominal pain. HPI Narrative ROLANDO VYAS, is a 58 F with a past medical history of tobacco abuse, history of cannabis abuse, chronic anemia; due to iron deficiency, depression, listed history of allergies to penicillin; which causes hives and recent admission here from 09/18/2023 to 09/21/2023 for treatment of acute perforated colonic diverticulitis who re-presents to [facility] ER complaining of worsening abdominal pain. Ms. Vyas reports her symptoms began approximately 2 weeks prior to admission as she was careful to take all of her ciprofloxacin and Flagyl in addition to being compliant with her clear liquid diet with a slow advancement to normal food with the gradual onset of progressively worsening abdominal pain. During her last admission she was seen in consultation by Dr. Landaverde with plan to have patient take 10 more days of antibiotics and to follow-up in the office. According to the records the patient actually came to this ER on October 03, 2023 with complaints of abdominal pain and continued diarrhea so she called her surgeon's office and was instructed to come to the ER for further evaluation and treatment with a CT scan that admission showing inflammatory or infectious colitis without perforation, free air or abscess. Then earlier on October 04, 2023, she noticed her pain was getting worse so she decided to come back in for further evaluation and treatment. She denies associated fever, chills or vomiting but she does admit to nausea and nonbloody diarrhea. In the ER her CT scan of the abdomen pelvis was positive for an intramural ~2.1 cm abscess overlying her previous area of colonic diverticulitis with perforation with laboratory evidence of leukocytosis of 15.7 present on admission and hypokalemia of 3 mmol/L present on admission and she was then admitted to the general medical floor for ongoing care for stay that is expected to be greater than 48 hours. PFSH Medical History Depression Smoker Home Medications lamotrigine 150 mg tablet 300 mg PO DAILY depression 09/18/23 [History Last Taken 09/17/23] sertraline 100 mg tablet 150 mg PO Q24H depression 09/18/23 [History Last Taken 09/17/23] oxycodone 5 mg tablet 5 mg PO Q4H PRN PRN Pain Score 4-10 5 days #20 tabs 09/21/23 [Rx Last Taken Unknown] Allergy/AdvReac Type Severity Reaction Status Date / Time Penicillins Allergy Hives Verified 10/03/23 13:32 Family History Mother Cancer Patient's mother has gallbladder cancer with metastasis to the liver. Social History Smoking Status: Current every day smoker tobacco type: cigarettes substance use type: marijuana ROS ROS Narrative Review of systems: Constitutional: Patient admits to generalized malaise but denies fever or chills. Eyes: Patient denies visual changes. ENT: Patient denies runny nose, ear pain or sore throat. Cardiovascular: Patient denies chest pain, chest pressure or palpitations. Respiratory: Patient denies shortness of breath or cough. Gastrointestinal: Patient admits to abdominal pain mainly focused in the left lower quadrant. Genitourinary: Patient denies dysuria, hematuria or urinary frequency. Musculoskeletal: Patient denies arthralgias or myalgias. Allergic: Patient denies lip swelling, tongue swelling or urticaria. Hematologic: Patient denies easy bleeding or easy bruisability. Psychiatric: Patient denies significant associated depression or anxiety at this time. 14 point review of systems otherwise negative save for positives noted above in HPI. Vital Signs Vital Signs Vital Signs: 10/05/23 03:53 10/05/23 04:04 Temperature 97.5 F L Temperature Source Oral Pulse Rate 89 91 Respiratory Rate 16 16 Blood Pressure 141/70 H 139/68 H Blood Pressure Mean 93 91 Pulse Ox 97 96 Oxygen Delivery Method Room Air Room Air Weight Weight: 163 lb 2.273 oz Body Mass Index (BMI) 24.7 Physical Exam Const alert, oriented x3 and average body habitus Constitutional Narrative: Patient appears to be in mild to moderate discomfort. General Appearance: cooperative HEENT normocephalic, head/scalp atraumatic and hearing grossly normal bilaterally HEENT Narrative: Oropharynx dry. Eyes PERRL, EOMs intact bilaterally and conjunctivae normal Neck no lymphadenopathy and supple Resp normal respiratory effort, no retractions, no use of accessory muscles and clear to auscultation bilaterally Cardio regular rate and regular rhythm GI normal to inspection, nondistended, normoactive bowel sounds and soft to palpation GI Narrative: Generalized abdominal pain with mild distention and increased tenderness to palpation of the left lower quadrant. Extremity normal to inspection, full ROM and no clubbing, cyanosis or edema Skin Skin Narrative: Patient has no evidence of rash at this time. Neuro oriented x3, CN's II-XII intact bilaterally, moves all extremities and no focal motor deficits Sensorium / Orientation: awake, alert, oriented to person, oriented to place and oriented to time Speech: speech normal Motor Exam: strength 5/5 throughout Psych affect normal Results Medical Records Data Attestation: I reviewed the patient's medical records Lab / Micro Data Attestation: I reviewed the patient's lab results. 10/05/23 04:20 10/05/23 04:20 Labs: Laboratory Results - last 24 hr 10/05/23 04:20: WBC 15.7 H, RBC 4.11 L, Hgb 10.0 L, Hct 31.4 L, MCV 76.4 L, MCH 24.3 L, MCHC 31.8 L, RDW Std Deviation 43.9, RDW Coeff of Tashi 16.1 H, Plt Count 431, MPV 9.2, Immature Gran % (Auto) 0.500, Neut % (Auto) 77.1 H, Lymph % (Auto) 12.1 L, Barry % (Auto) 8.7, Eos % (Auto) 1.3, Baso % (Auto) 0.3, Absolute Neuts (auto) 12.1 H, Absolute Lymphs (auto) 1.89, Nucleated RBC % 0, Sodium 137, Potassium 3.0 L, Chloride 101, Carbon Dioxide 25.0, Anion Gap 11, BUN 6 L, Creatinine 0.75, Estim Creat Clear Calc 82.48, Est GFR (MDRD) Af Amer 102, Est GFR (MDRD) Non-Af 84, BUN/Creatinine Ratio 8.0 L, Glucose 114 H, Calcium 8.9, Total Bilirubin 0.30, AST 12 L, ALT 14, Alkaline Phosphatase 61, Total Protein 6.9, Albumin 3.1 L, Globulin 3.8, Albumin/Globulin Ratio 0.8 L Assessment & Plan Assessment/Plan (1) Diverticular disease of intestine with perforation and abscess: (2) Abdominal pain: QUALIFIERS: Abdominal location: left lower quadrant Qualified Code(s): R10.32 - Left lower quadrant pain (3) Diarrhea: QUALIFIERS: Diarrhea type: presumed infectious Qualified Code(s): R19.7 - Diarrhea, unspecified (4) Hypokalemia: (5) Chronic anemia: PLAN: Plan 1. Acute sigmoid diverticulitis with perforation and 2.1 cm intramural abscess that is failed a full course of outpatient oral antibiotic treatment with leukocytosis of 15.7 present on admission - Admit to general medical floor. Continue broad-spectrum antibiotics to cover gram-negative's and anaerobes with Zosyn IV after patient has failed outpatient antibiotic therapy with Cipro and Flagyl with patient tolerating this agent in the ER. Give IV Toradol as needed for mild to moderate level 1-5 out of 10 pain or fever. Give morphine IV as needed for severe level 6-10 out of 10 pain. Give Zofran IV as needed for breakthrough nausea and vomiting. Finally, we will consult the general surgeon on-call to see this patient on rounds in the a.m. for further recommendations regarding surgical management of her diverticular abscess that has already failed medical therapy and is not in a good place for percutaneous drainage with help appreciated in advance. 2. Recent admission here from 09/18/2023 to 09/21/2023 for treatment of acute perforated colonic diverticulitis - Noted. 3. Hypokalemia of 3 mmol/L present on admission likely due to diarrhea complicating #1 - Give supplemental IV potassium chloride and then recheck BMP to ensure improvement. Placed on enteric precautions and check stool studies: C. difficile A&B toxin PCR, fecal ova and parasites, fecal leukocytes and Hemoccult. 4. Tobacco abuse - Tobacco cessation will be strongly encouraged with nicotine patch offered to control cravings. 5. History of cannabis abuse - Cannabis cessation will be strongly encouraged. 6. Chronic anemia; due to iron deficiency - Stable. Type and screen blood as patient may require surgery. 7. Depression - Resume home regimen patient is able to tolerate p.o. intake. 8. DVT/GI prophylaxis - Protonix 40 mg IV daily. Heparin 5,000 units SQ 3 times daily plus SCDs. Total time: Approximately 55 minutes. Charges/Coding Visit Charges Inpatient E&M: 17187 Init Hosp L2
[2023-10-05 05:58] LABS: Bacteria 0 SEEN /hpf (None Seen); Mucous, Urine 0 SEEN /hpf (<or=2+); Red Blood Cells-Urine 0 SEEN /hpf (0-5); Squamous Epithelial Cells - UA 0 SEEN /hpf (5-10); White Blood Cells 0 SEEN /hpf (0-5)
--- NOTE | 2023-10-05 06:09 | ED.RN ---
medication orders not crossing over in the computer, zosyn 4.5 mg ivpb hung at 0610, protonix 40mg ivpb hung at 0600.
[2023-10-05 06:12] LABS: Color, Urine Yellow (Yellow); Glucose, Dipstick Normal (Normal); Ketone-Dipstick Negative (Negative); Leukocyte Esterase-Dipstick 25 /ul (Negative); Nitrite-Dipstick Negative (Negative); Occult Blood-Urine Negative /ul (Negative); Protein-Dipstick Negative (Negative); Specific Gravity, Urine 1.005 (1.002-1.030); Urine Bilirubin Dipstick Negative (Negative); Urine Clarity Clear (Clear); Urine Urobilinogen Normal (Normal); Urine pH 6.5 (5.0 - 8.0)
--- NOTE | 2023-10-05 07:26 | EKG12_ITS ---
Test Reason : PRE OP Blood Pressure : / mmHG Vent. Rate : 070 BPM Atrial Rate : 070 BPM P-R Int : 170 ms QRS Dur : 084 ms QT Int : 402 ms P-R-T Axes : 057 024 020 degrees QTc Int : 434 ms Normal sinus rhythm Normal ECG When compared with ECG of 10-JUN-2016 22:47, No significant change was found Confirmed by PATRICK BECKFORD, ANDREW ([id number]), editor map ALEX DU ([id number]) on 10/07/2023 5:51:03 AM Referred By: YANDEL Confirmed By:ANDREW NGUYEN MD
[2023-10-05] MEDS: 0.9% Saline Lock 10 ML Syringe IV ×4 (07:51→18:25)
[2023-10-05] MEDS: Morphine 2 MG/ML Syringe IV ×4 (07:58→20:17)
[2023-10-05] MEDS: KCl 20MEQ in D5NS 20 MEQ/1,000 ML IV.SOLN. 150 MEQ IV ×3 (08:18→21:26)
[2023-10-05 08:27] LABS: Lactic Acid 0.6 mmol/L (0.4-1.9)
[2023-10-05] MEDS: Potassium Phosphate 30 MMOL in 0.9% Normal Saline (250mL Bag) 250 ML 42 MMOL IV (08:55)
[2023-10-05] MEDS: Ketorolac 15 MG/ML Vial IV ×2 (08:59→18:24)
[2023-10-05] MEDS: Heparin Injection (Vial) 5,000 UNIT/ML VIAL 5000 UNIT SC ×3 (09:00→22:30)
[2023-10-05 11:54] LABS: Anion Gap -1 (5-15); BUN 4 mg/dL (7-18); BUN/Creat Ratio 5.3 RATIO (10-20); Calcium,Total 8.3 mg/dL (8.5-10.1); Chloride 111 mmol/L (98-107); Creatinine, Serum 0.76 mg/dL (0.55-1.02); EST Glomerular Filtration Rate 83 mL/min (>60); Est Glom Filt Rate - Afr Amer 101 mL/min (>60); Estimated Creatinine Clearance 81.39 ml/min; Glucose 115 mg/dL (74-106); Potassium 3.7 mmol/L (3.5-5.1); Sodium Level 139 mmol/L (136-145)
--- NOTE | 2023-10-05 12:09 | CON.PCM.SX_ITS ---
Assessment & Plan Assessment/Plan (1) Diverticular disease of intestine with perforation and abscess: (2) Colitis: PLAN: Plan Patient is a 58-year-old female who has been evaluated 3 times in our ER and this represents her second admission for complicated diverticulitis?with associated pancolonic colitis. While she is tender on exam, she does not exhibit any peritoneal signs and although radiology comments that she exhibits a new abscess and my independent review of her [address] there appears to be a locule of intramural air in the same location. Therefore, I believe the patient is appropriate for conservative measures. More specifically I recommend relative bowel rest, but do want to offer her some nutrition with clear liquid diet since she is reporting suboptimal nutrition for an extended period of time at this point. I agree with the transition of IV antibiotics and the stool ass ay as complicated diverticulitis does not well explain the picture of pancolitis seen on CT imaging. I have also shared with Mrs. Vyas that her tobacco habit is likely complicating her recovery and also limits her surgical options in the sense that it would be relative contraindication for reanastomosis should she require a segmental colectomy. To this end she does exhibit some inflammation even throughout her rectum so this in and of itself may limit surgical options. It is with these limitations in mind that I would like to exhaust conservative measures. I would plan for repeat CT imaging in 48 hours before transitioning her IV antibiotic therapy or considering a change in her disposition. HPI Consult Data Date of Consult: 10/05/23 HPI Narrative Reason for Consultation: Colitis and probable complicated diverticulitis HPI Narrative: ROLANDO VYAS, is a 58 F who presents to [facility] after being evaluated in the ER 2 days ago for complaints of worsening abdominal pain despite outpatient management of diverticulitis that began with a initial evaluation on 09/18/2023. She shares that her symptoms actually began over and upon her presentation on 09/18/2023 she was admitted to the hospital for 3 days of IV antibiotics. She then returned home and completed 7 days of oral antibiotics as well as remained on a clear liquid diet. She notes that she did notice progressive improvements but really only had a few days of feeling well before she started feeling poorly again on 09/02/2023. She states that the majority of her pain is felt in her lower abdomen but it is also felt diffusely. She notes that her stools have been loose but she denies noting any bloodiness to them. Overall her stool volume is minimal but there is an increased frequency about them. She denies any fevers or chills at home. Patient's ER workup is notable for an increased white count of 15.7 (from 14.6 on 10/03/2023). Additionally repeat CT imaging shows a 2.1 cm intramural versus adjacent sigmoid abscess that radiology read says new. Patient has no prior history of colonoscopy and is reportedly reluctant to consider a scope with her previous admission. She denies any family history of diverticulitis, inflammatory bowel disease, or colon cancer. PFSH Medical History Depression Smoker Home Medications lamotrigine 150 mg tablet 300 mg PO DAILY depression 09/18/23 [History Last Taken 10/04/23] sertraline 100 mg tablet 150 mg PO Q24H depression 09/18/23 [History Last Taken 10/04/23] oxycodone 5 mg tablet 5 mg PO Q4H PRN PRN Pain Score 4-10 5 days #20 tabs 09/21/23 [Rx Last Taken 10/05/23] Allergy/AdvReac Type Severity Reaction Status Date / Time Penicillins Allergy Hives Verified 10/03/23 13:32 Family History Mother Cancer Patient's mother has gallbladder cancer with metastasis to the liver. Social History Smoking Status: Current every day smoker tobacco type: cigarettes substance use type: marijuana Physical Exam Const alert and oriented x3 General Appearance: cooperative Resp normal respiratory effort GI GI Narrative: Nondistended, soft, tenderness to palpation both in the upper and lower abdomen along the midline with patient reporting more significant tenderness in the suprapubic position. She is not demonstrating rebound tenderness or peritoneal signs. Lab / Micro Data 10/05/23 04:20 10/05/23 11:33 Labs: Laboratory Results - last 24 hr 10/05/23 04:20: WBC 15.7 H, RBC 4.11 L, Hgb 10.0 L, Hct 31.4 L, MCV 76.4 L, MCH 24.3 L, MCHC 31.8 L, RDW Std Deviation 43.9, RDW Coeff of Tashi 16.1 H, Plt Count 431, MPV 9.2, Immature Gran % (Auto) 0.500, Neut % (Auto) 77.1 H, Lymph % (Auto) 12.1 L, [place] % (Auto) 8.7, Eos % (Auto) 1.3, Baso % (Auto) 0.3, Absolute Neuts (auto) 12.1 H, Absolute Lymphs (auto) 1.89, Nucleated RBC % 0, Sodium 137, Potassium 3.0 L, Chloride 101, Carbon Dioxide 25.0, Anion Gap 11, BUN 6 L, Creatinine 0.75, Estim Creat Clear Calc 82.48, Est GFR (MDRD) Af Amer 102, Est GFR (MDRD) Non-Af 84, BUN/Creatinine Ratio 8.0 L, Glucose 114 H, Calcium 8.9, Total Bilirubin 0.30, AST 12 L, ALT 14, Alkaline Phosphatase 61, Total Protein 6.9, Albumin 3.1 L, Globulin 3.8, Albumin/Globulin Ratio 0.8 L 10/05/23 05:30: Urine Color Yellow, Urine Clarity Clear, Urine pH 6.5, Ur Specific Cade 1.005, Urine Protein Negative, Urine Glucose (UA) Normal, Urine Ketones Negative, Urine Occult Blood Negative, Urine Nitrite Negative, Urine Bilirubin Negative, Urine Urobilinogen Normal, Ur Leukocyte Esterase 25 H, Urine RBC 0 SEEN, Urine WBC 0 SEEN, Ur Squamous Epith Cells 0 SEEN, Urine Bacteria 0 SEEN, Urine Mucus 0 SEEN 10/05/23 07:56: Lactic Acid 0.6 10/05/23 11:33: Sodium 139, Potassium 3.7, Chloride 111 H, Carbon Dioxide 29.0, Anion Gap -1 L, BUN 4 L, Creatinine 0.76, Estim Creat Clear Calc 81.39, Est GFR (MDRD) Af Amer 101, Est GFR (MDRD) Non-Af 83, BUN/Creatinine Ratio 5.3 L, Glucose 115 H, Calcium 8.3 L Imagaing Radiology Impression Abdomen/Pelvis CT 10/05/23 04:30 IMPRESSION: 1. Worsening severe colitis of the sigmoid colon with probable mild colitis involving the rest of the colon. Development of a new 2.1 cm abscess in the sigmoid colon low in the pelvis that may either be intramural or immediately adjacent to the colon. 2. Slight ascites. 3. Subsegmental atelectasis in the lung bases bilaterally. N.B. : The above Results were Read Back by Joseph Verde MD to Tomer Haney MD, and understanding confirmed on 10/05/2023 05:07:24 (ET). Electronically Signed: Joseph Verde MD at 5:10 EST , Charges/Coding Visit Charges Inpatient E&M: 37411 Init Hosp L2
[2023-10-05] MEDS: HYDROmorphone 0.5 MG/0.5 ML SYRINGE IV (14:03)
[2023-10-05] MEDS: Piperacil/Tazobactam 3.375 GM in 0.9% Normal Saline (50mL MB+) 50 ML IV (14:15)
--- NOTE | 2023-10-05 16:09 | CASEMGMT ---
SARAI CARMONA Readmission Review Index: 09/18/23-09/21/23, Dx: Diverticulitis. Discharged home with family support and denied any discharge needs. Readmission: 10/05/23 Dx: Diverticulitis, Bowel Perforation Pt re-presents to [facility] with worsening ABD pain after previous discharge. Pt reports she was placed on PO ATB therapy after discharge and was compliant with the regimen. Pt also reports that she was compliant in slowly advancing her diet from a clear liquid to regular foods. Pt states she had a f/u appt on Tuesday10/03/23 but could not make it because she came to [facility] ER and was subsequently discharged home. She then returned to the ER the next day due to increases in ABD pain. SARAI CARMONA to room to discuss discharge needs. Pt states that she is normally independent at home regarding ADLs and IADLs. Pt lives in a 2 story home with 2 steps to enter with a hand rail. Pt lives with her and 2 sons. Pt is able to drive. Pt denies DME use. Denies SNF/ HHC history. Pt denies any further questions or concerns regarding the discharge process at the time of assessment. Jeff Ellis RN, CM
[2023-10-05] MEDS: Ensure Clear 120 ML Liquid PO (18:12)
[2023-10-05] MEDS: metroNIDAZOLE 500 MG/100 ML BAG 100 MG IV (21:26)
[2023-10-05] MEDS: Vancomycin 125 MG/5 ML Susp PO.SYRINGE PO (22:31)
[2023-10-06] MEDS: Ketorolac 15 MG/ML Vial IV ×3 (00:11→12:01)
[2023-10-06] MEDS: Vancomycin 125 MG/5 ML Susp PO.SYRINGE PO ×4 (00:11→16:36)
[2023-10-06] MEDS: oxyCODONE 5 MG Tablet PO ×3 (00:11→12:00)
[2023-10-06] MEDS: KCl 20MEQ in D5NS 20 MEQ/1,000 ML IV.SOLN. 150 MEQ IV ×4 (03:23→23:27)
[2023-10-06 03:25] VITALS: BP 117/47; PULSE 86; RESP 18; TEMP 37.2; O2SAT 96
[2023-10-06 05:06] VITALS: BMI 24.9
[2023-10-06] MEDS: Heparin Injection (Vial) 5,000 UNIT/ML VIAL 5000 UNIT SC ×3 (06:25→21:58)
[2023-10-06] MEDS: metroNIDAZOLE 500 MG/100 ML BAG 100 MG IV ×3 (06:25→21:57)
[2023-10-06 06:49] LABS: Absolute Lymphocyte Count 2.14 X10^3/uL (0.83-4.51); Absolute Neutrophil Count 9.9 X10^3/uL (2.0-7.7); Basophil# 0.02 X10^3/uL; Basophil% 0.1 % (0-1); Eosinophil# 0.15 X10^3/uL; Eosinophils% 1.1 % (0-5); Hematocrit 29.2 % (37-47); Hemoglobin 8.9 g/dL (12.0-15.0); Lymphocyte # 2.14 X10^3/ul (0.83-4.51); Lymphocyte % 15.8 % (19-41); Mean Corp Hgb Conc 30.5 g/dL (32-36); Mean Corpuscular Hgb 24.1 pg (27.0-32.0); Mean Corpuscular Volume 79.1 fL (81-99); Mean Platelet Vol. 8.9 fl (6.2-12.0); Monocyte# 1.27 X10^3/uL; Monocyte% 9.4 % (0-10); NRBC Flagged by Analyzer 0 % (0-5); Neutrophil # 9.91 X10^3/uL (2.7-7.7); Platelet Count 364 K/mm3 (150-450); RBC Distribution Width CV 16.8 % (11.6-14.6); RBC Distribution Width SD 46.8 fl (35.1-43.9); Red Blood Count 3.69 M/mm3 (4.2-5.4); White Blood Count 13.6 K/mm3 (4.4-11.0)
[2023-10-06 07:36] LABS: ALB/GLOB Ratio 0.7 RATIO (0.9-2.4); AST(SGOT) 9 U/L (15-37); Alanine Aminotransfer ALT/SGPT 11 U/L (13-56); Albumin, Serum 2.3 g/dL (3.2-5.0); Alkaline Phosphatase 50 U/L (45-117); Anion Gap 8 (5-15); BUN 2 mg/dL (7-18); BUN/Creat Ratio 3.2 RATIO (10-20); Calcium,Total 7.7 mg/dL (8.5-10.1); Chloride 109 mmol/L (98-107); Creatinine, Serum 0.63 mg/dL (0.55-1.02); EST Glomerular Filtration Rate 104 mL/min (>60); Est Glom Filt Rate - Afr Amer 125 mL/min (>60); Estimated Creatinine Clearance 98.19 ml/min; Globulin 3.4 g/dL (2.2-4.2); Glucose 120 mg/dL (74-106); Magnesium 1.5 mg/dL (1.6-2.6); Potassium 3.3 mmol/L (3.5-5.1); Protein, Total 5.7 g/dL (6.4-8.2); Sodium Level 140 mmol/L (136-145); Thyroid Stim Hormone (TSH) 1.35 uIU/mL (0.358-3.74)
--- NOTE | 2023-10-06 08:27 | PCM.PN.SRG ---
Subjective Subjective Patient evaluated resting comfortably in bed. She notes lower left abdominal pain and pain at the umbilicus. She states she feels bloated this morning. She denies nausea, vomiting, fever. Microbiology returned positive for C Diff. Patient's antibiotics were changed to oral Vancomycin and IV Flagyl. She continues to have loose stools. Objective Data Objective Data Vital Signs: Vital Signs Temp Pulse Resp BP Pulse Ox O2 Del Method 99 F 86 18 117/47 L 96 Room Air 10/06/23 03:25 10/06/23 03:25 10/06/23 03:25 10/06/23 03:25 10/06/23 03:25 10/06/23 03:25 Oxygen Delivery Method Room Air Weight: 164 lb 3.91 oz Body Mass Index (BMI) 24.9 Intake & Output: Intake and Output for Last 24 Hours 10/04/23 10/05/23 10/06/23 23:59 23:59 23:59 Intake Total 2815 / 3365 1842.5 / 1842.5 Balance 2815 / 3365 1842.5 / 1842.5 Lab / Micro Data 10/06/23 06:30 10/06/23 06:30 Labs: Laboratory Results - last 24 hr 10/05/23 07:56: Lactic Acid 0.6 10/05/23 11:33: Sodium 139, Potassium 3.7, Chloride 111 H, Carbon Dioxide 29.0, Anion Gap -1 L, BUN 4 L, Creatinine 0.76, Estim Creat Clear Calc 81.39, Est GFR (MDRD) Af Amer 101, Est GFR (MDRD) Non-Af 83, BUN/Creatinine Ratio 5.3 L, Glucose 115 H, Calcium 8.3 L 10/06/23 06:30: WBC 13.6 H, RBC 3.69 L, Hgb 8.9 L, Hct 29.2 L, MCV 79.1 L, MCH 24.1 L, MCHC 30.5 L, RDW Std Deviation 46.8 H, RDW Coeff of Tashi 16.8 H, Plt Count 364, MPV 8.9, Immature Gran % (Auto) 0.600, Neut % (Auto) 73.0 H, Lymph % (Auto) 15.8 L, [place] % (Auto) 9.4, Eos % (Auto) 1.1, Baso % (Auto) 0.1, Absolute Neuts (auto) 9.9 H, Absolute Lymphs (auto) 2.14, Nucleated RBC % 0, Sodium 140, Potassium 3.3 L, Chloride 109 H, Carbon Dioxide 23.0, Anion Gap 8, BUN 2 L, Creatinine 0.63, Estim Creat Clear Calc 98.19, Est GFR (MDRD) Af Amer 125, Est GFR (MDRD) Non-Af 104, BUN/Creatinine Ratio 3.2 L, Glucose 120 H, Calcium 7.7 L, Phosphorus 2.0 L, Magnesium 1.5 L, Total Bilirubin 0.20, AST 9 L, ALT 11 L, Alkaline Phosphatase 50, Total Protein 5.7 L, Albumin 2.3 L, Globulin 3.4, Albumin/Globulin Ratio 0.7 L, TSH 1.35 Micro: Microbiology 10/05/23 13:32 Stool C. difficile GDH Antigen & Toxins - Final Toxigenic C. difficile 10/05/23 13:32 Stool C. difficile DNA Amplification - Final 10/05/23 20:20 Stool Stool Lactoferrin - Final Physical Exam GI GI Narrative: Abdomen- distended, tender at the umbilicus and left lower quadrant, positive bowel sounds Assessment & Plan Assessment/Plan (1) C. difficile colitis: PLAN: I have evaluated this patient in conjunction with Dr. Bateman Continue oral vanco and IV flagyl Labs reviewed with WBC trending down We will continue to monitor this patient Discussed home care and contamination risks Patient verbally understands Discharge date: Pending. Ongoing medical care needed. Charges/Coding Visit Charges Inpatient E&M: 73200 Subs Hosp L1
--- NOTE | 2023-10-06 09:27 | PCM.PN.HOSP ---
Subjective Subjective Feeling a little bit better today with the initiation of p.o. vancomycin and IV Flagyl for her C. difficile infection belly pain is slightly improved Objective Data Objective Data Vital Signs: Vital Signs Temp Pulse Resp BP Pulse Ox O2 Del Method 99 F 86 18 117/47 L 96 Room Air 10/06/23 03:25 10/06/23 03:25 10/06/23 03:25 10/06/23 03:25 10/06/23 03:25 10/06/23 03:25 Oxygen Delivery Method Room Air Weight: 164 lb 3.91 oz Body Mass Index (BMI) 24.9 Intake & Output: Intake and Output for Last 24 Hours 10/05/23 10/06/23 10/07/23 03:59 03:59 03:59 Intake Total 4257.5 / 4257.5 400 / 400 Balance 4257.5 / 4257.5 400 / 400 Lab / Micro Data 10/06/23 06:30 10/06/23 06:30 Labs: Laboratory Results - last 24 hr 10/05/23 11:33: Sodium 139, Potassium 3.7, Chloride 111 H, Carbon Dioxide 29.0, Anion Gap -1 L, BUN 4 L, Creatinine 0.76, Estim Creat Clear Calc 81.39, Est GFR (MDRD) Af Amer 101, Est GFR (MDRD) Non-Af 83, BUN/Creatinine Ratio 5.3 L, Glucose 115 H, Calcium 8.3 L 10/06/23 06:30: WBC 13.6 H, RBC 3.69 L, Hgb 8.9 L, Hct 29.2 L, MCV 79.1 L, MCH 24.1 L, MCHC 30.5 L, RDW Std Deviation 46.8 H, RDW Coeff of Tashi 16.8 H, Plt Count 364, MPV 8.9, Immature Gran % (Auto) 0.600, Neut % (Auto) 73.0 H, Lymph % (Auto) 15.8 L, [place] % (Auto) 9.4, Eos % (Auto) 1.1, Baso % (Auto) 0.1, Absolute Neuts (auto) 9.9 H, Absolute Lymphs (auto) 2.14, Nucleated RBC % 0, Sodium 140, Potassium 3.3 L, Chloride 109 H, Carbon Dioxide 23.0, Anion Gap 8, BUN 2 L, Creatinine 0.63, Estim Creat Clear Calc 98.19, Est GFR (MDRD) Af Amer 125, Est GFR (MDRD) Non-Af 104, BUN/Creatinine Ratio 3.2 L, Glucose 120 H, Calcium 7.7 L, Phosphorus 2.0 L, Magnesium 1.5 L, Total Bilirubin 0.20, AST 9 L, ALT 11 L, Alkaline Phosphatase 50, Total Protein 5.7 L, Albumin 2.3 L, Globulin 3.4, Albumin/Globulin Ratio 0.7 L, TSH 1.35 Micro: Microbiology 10/05/23 13:32 Stool C. difficile GDH Antigen & Toxins - Final Toxigenic C. difficile 10/05/23 13:32 Stool C. difficile DNA Amplification - Final 10/05/23 20:20 Stool Stool Lactoferrin - Final Physical Exam Narrative General: Alert, Oriented x3, Cooperative, No apparent distress HEENT: Atraumatic, PERRLA, EOMI, Normocephalic Oral: Moist Mucosa Neck: Supple, No JVD Lungs: Clear to auscultation, Normal air movement, No rhonchi, No wheeze, No rales Cardiovascular: Regular rate, Regular Rhythm, Normal S1, Normal S2, No murmurs Abdomen: Soft, tender, Non-Distended, No Hepato-splenomegaly Extremities: No edema, Capillary Refill Less than 3 Seconds Skin: No rashes, No breakdown Musculoskeletal: No Tenderness to Palpation of Joints or Extremities Neurological: Cranial nerves II-XII grossly intact, Motor Exam 5/5 strength throughout, Sensory exam intact to light touch and pain Psych/Mental Status: Normal Affect, Appropriate Assessment & Plan Assessment/Plan (1) Diverticular disease of intestine with perforation and abscess: PLAN: Plan 1. Subacute sigmoid diverticulitis with perforation and intramural abscess in the setting of acute C. difficile colitis ? She was recently admitted to the hospital for perforated diverticulitis and was on antibiotics and then she presented back to the hospital with increasing abdominal pain and fever and stool studies demonstrate C. difficile colitis ? Will discontinue Zosyn and continue with IV Flagyl and p.o. vancomycin and then anticipate that on discharge she will just be on p.o. vancomycin ? Appreciate general surgery's assistance ? Continue with pain management 2. Chronic iron deficiency anemia ? Stable ? We will place on IV iron and then plan to discharge on p.o. iron supplementation based on iron studies from 09/19/2023 3. Anxiety/depression ? Stable ? Continue with her home medications DVT: Heparin Charges/Coding Visit Charges Inpatient E&M: 92477 Subs Hosp L2
[2023-10-06 09:28] VITALS: BP 111/58; PULSE 77; RESP 18; TEMP 36.8; O2SAT 96
[2023-10-06] MEDS: Pantoprazole Sodium 40 MG in 0.9% Normal Saline (100mL MB+) 100 ML 330 MG IV (09:56)
[2023-10-06 10:13] VITALS: O2SAT 96
[2023-10-06] MEDS: Sodium Ferric Gluconat/Sucrose 250 MG in 0.9% Normal Saline (250mL Bag) 250 ML 135 MG IV (10:32)
[2023-10-06] MEDS: Ondansetron 4 MG/2 ML Vial IV (12:01)
[2023-10-06 15:27] VITALS: BP 111/57; PULSE 80; RESP 16; TEMP 36.7; O2SAT 96
[2023-10-06 21:53] VITALS: BP 93/56; PULSE 78; RESP 18; TEMP 36.8; O2SAT 91
[2023-10-06 23:29] VITALS: BP 105/52; PULSE 81; RESP 18; TEMP 36.8; O2SAT 93
[2023-10-07] MEDS: Vancomycin 125 MG/5 ML Susp PO.SYRINGE PO ×5 (00:35→23:27)
[2023-10-07] MEDS: Ketorolac 15 MG/ML Vial IV ×3 (00:35→22:24)
[2023-10-07] MEDS: oxyCODONE 5 MG Tablet PO ×4 (00:35→20:03)
[2023-10-07 03:58] VITALS: BP 108/44; PULSE 85; RESP 18; TEMP 36.8; O2SAT 94
[2023-10-07 04:07] VITALS: BMI 24.9
[2023-10-07] MEDS: Ondansetron 4 MG/2 ML Vial IV (05:24)
--- NOTE | 2023-10-07 06:00 | CT_ITS ---
STUDY: CT ABDOMEN AND PELVIS WITH CONTRAST REASON FOR EXAM: Female, 58 years old. f/u sigmoid intramural abscess and pancolitis RADIATION DOSAGE (If Supplied By Facility): CTDIvol = ( 18.49 ) mGy, DLP = ( 1050.34 ) mGycm TECHNIQUE: Oral and amp; IV Gastrografin and amp; 100mL Isovue-300 was administered. Transaxial images were obtained from the dome of the diaphragm to the symphysis pubis in the portal venous phase. Multiplanar coronal and sagittal images were reformatted. Individualized Dose Optimization Techniques Were Used For This CT. COMPARISON: Prior study dated: 10/05/2023 FINDINGS: LOWER CHEST: Bibasilar atelectasis. No cardiomegaly or pericardial effusion. LIVER: The liver is normal in size, shape, and attenuation. No focal mass. Mild periportal edema noted. GALLBLADDER AND BILIARY TREE: The gallbladder is normally distended. No gallstones. No gallbladder wall thickening or edema. There is a small volume of pericholecystic fluid. This is new from prior. No intra- or extrahepatic biliary ductal dilation. PANCREAS: No focal cystic or solid mass. SPLEEN: Normal size without focal cystic or solid mass. ADRENAL GLANDS: No nodules. KIDNEYS AND URETERS: Normal renal size and position. No hydronephrosis or nephrolithiasis. PERITONEUM: Small volume ascites. No free air. BOWEL: The stomach is unremarkable. Normal caliber small bowel. No obstruction. Contrast reaches the cecum. There is mild wall thickening throughout the colon, with wall thickening most significant at the sigmoid colon. Overall the wall thickening shows mild improvement from previous. Redemonstration of intramural abscess with internal gas. This measures approximately 2.4 cm and is likely without significant change from prior. Persistent presacral edema. [Is not seen. LYMPH NODES: No enlarged mesenteric or retroperitoneal lymph nodes. VESSELS: The aorta is normal in caliber with moderate atherosclerotic calcification. URINARY BLADDER: Unremarkable. REPRODUCTIVE ORGANS: No pelvic masses. ABDOMINAL WALL: No discrete abdominal or pelvic wall hernia. BONES: No lytic or blastic abnormality. CT/Abdomen/Pelvis WITH Contrast IMPRESSION: Colitis with partial improvement of the colonic wall thickening. There is redemonstration of intramural abscess involving the sigmoid colon, similar to prior. There is new small volume ascites. Periportal edema present about the liver. Electronically Signed: Tyrone Canela MD at 6:16 EST ,
[2023-10-07] MEDS: metroNIDAZOLE 500 MG/100 ML BAG 100 MG IV (06:34)
[2023-10-07] MEDS: KCl 20MEQ in D5NS 20 MEQ/1,000 ML IV.SOLN. 150 MEQ IV ×3 (06:34→20:47)
[2023-10-07] MEDS: Heparin Injection (Vial) 5,000 UNIT/ML VIAL 5000 UNIT SC ×3 (06:35→22:24)
[2023-10-07 06:38] LABS: Absolute Lymphocyte Count 1.79 X10^3/uL (0.83-4.51); Absolute Neutrophil Count 8.2 X10^3/uL (2.0-7.7); Basophil# 0.04 X10^3/uL; Basophil% 0.3 % (0-1); Eosinophil# 0.32 X10^3/uL; Eosinophils% 2.7 % (0-5); Hematocrit 28.6 % (37-47); Hemoglobin 8.6 g/dL (12.0-15.0); Lymphocyte # 1.79 X10^3/ul (0.83-4.51); Lymphocyte % 15.2 % (19-41); Mean Corp Hgb Conc 30.1 g/dL (32-36); Mean Corpuscular Volume 79.7 fL (81-99); Mean Platelet Vol. 9.2 fl (6.2-12.0); NRBC Flagged by Analyzer 0 % (0-5); Neutrophil # 8.23 X10^3/uL (2.7-7.7); Platelet Count 368 K/mm3 (150-450); RBC Distribution Width CV 16.9 % (11.6-14.6); RBC Distribution Width SD 49.1 fl (35.1-43.9); Red Blood Count 3.59 M/mm3 (4.2-5.4); White Blood Count 11.8 K/mm3 (4.4-11.0)
[2023-10-07 06:53] LABS: Anion Gap 4 (5-15); BUN 1 mg/dL (7-18); BUN/Creat Ratio 1.8 RATIO (10-20); Calcium,Total 8.1 mg/dL (8.5-10.1); Chloride 112 mmol/L (98-107); Creatinine, Serum 0.54 mg/dL (0.55-1.02); EST Glomerular Filtration Rate 122 mL/min (>60); Est Glom Filt Rate - Afr Amer 147 mL/min (>60); Estimated Creatinine Clearance 114.55 ml/min; Glucose 97 mg/dL (74-106); Potassium 3.1 mmol/L (3.5-5.1); Sodium Level 142 mmol/L (136-145)
[2023-10-07 08:07] VITALS: O2SAT 95
--- NOTE | 2023-10-07 09:50 | PN.SURG_ITS ---
Subjective Subjective Patient seen and examined during AM rounds. She reports that she had a difficult overnight course as she initially had some pain but then began having trouble sleeping and ultimately was awoken early for her CT imaging. She does report that her abdominal discomfort is improved. She also shares that she believes she could tolerate more of a diet. She has a number of questions regarding her clinical outlook and what her treatment options are. Objective Data Objective Data Vital Signs: Vital Signs Temp Pulse Resp BP Pulse Ox O2 Del Method 98.2 F 85 18 108/44 L 95 Room Air 10/07/23 03:58 10/07/23 03:58 10/07/23 03:58 10/07/23 03:58 10/07/23 08:07 10/07/23 08:07 Oxygen Delivery Method Room Air Weight: 164 lb 3.91 oz Body Mass Index (BMI) 24.9 Intake & Output: Intake and Output for Last 24 Hours 10/05/23 10/06/23 10/07/23 23:59 23:59 23:59 Intake Total 2815 / 3365 6959.0 / 6959.0 1360 / 1360 Balance 2815 / 3365 6959.0 / 6959.0 1360 / 1360 Lab / Micro Data 10/07/23 06:15 10/07/23 06:15 Labs: Laboratory Results - last 24 hr 10/07/23 06:15: WBC 11.8 H, RBC 3.59 L, Hgb 8.6 L, Hct 28.6 L, MCV 79.7 L, MCH 24.0 L, MCHC 30.1 L, RDW Std Deviation 49.1 H, RDW Coeff of Tashi 16.9 H, Plt Count 368, MPV 9.2, Immature Gran % (Auto) 0.800, Neut % (Auto) 70.0, Lymph % (Auto) 15.2 L, [place] % (Auto) 11.0 H, Eos % (Auto) 2.7, Baso % (Auto) 0.3, Absolute Neuts (auto) 8.2 H, Absolute Lymphs (auto) 1.79, Nucleated RBC % 0, Sodium 142, Potassium 3.1 L, Chloride 112 H, Carbon Dioxide 26.0, Anion Gap 4 L, BUN 1 L, Creatinine 0.54 L, Estim Creat Clear Calc 114.55, Est GFR (MDRD) Af Amer 147, Est GFR (MDRD) Non-Af 122, BUN/Creatinine Ratio 1.8 L, Glucose 97, Calcium 8.1 L Micro: Microbiology 10/05/23 05:30 Urine, Random Urine Culture - Final Klebsiella pneumoniae sp pneum 10/05/23 20:20 Stool Stool Lactoferrin - Final 10/05/23 20:20 Stool Enteric Bacteriology - Final 10/05/23 13:32 Stool C. difficile GDH Antigen & Toxins - Final Toxigenic C. difficile 10/05/23 13:32 Stool C. difficile DNA Amplification - Final Radiography Diagnostic Testing: Radiology Impression Abdomen/Pelvis CT 10/07/23 06:00 IMPRESSION: Colitis with partial improvement of the colonic wall thickening. There is redemonstration of intramural abscess involving the sigmoid colon, similar to prior. There is new small volume ascites. Periportal edema present about the liver. Electronically Signed: Tyrone Canela MD at 6:16 EST Reading Location ID and State: [facility] / [place] Tel , Service support , Physical Exam Const oriented x3 Constitutional Narrative: Patient appears anxious Resp normal respiratory effort GI GI Narrative: Mildly distended, soft, mildly tender to palpation in the epigastrium and left lower quadrant no rebound Assessment & Plan Assessment/Plan (1) C. difficile colitis: (2) Colitis: PLAN: Plan Patient is a 58-year-old female who has been evaluated 3 times in our ER and this represents her second admission for complicated diverticulitis?with associated pancolonic colitis. She tested positive for toxigenic C. difficile colitis 2 days ago. This morning she reports some symptomatic improvements and underwent repeat CT imaging 48 hours post admission. This imaging shows stability of her intramural sigmoid abscess and some improvements in her pancolitis. Further, her white blood cell count has down trended to 11 today. I have shared with her these positive results, but she remains fixated on what her options are if she does not respond to medical treatment. I have shared with her in response that I would wish to keep the surgery to a Sales's?type procedure, however, if we were removed to operate on the account of her C. difficile colitis this would likely require a total abdominal colectomy. I did reiterate to her that we are hopefully moving away from needing to pursue either of these options but she remains somewhat distressed with the thought of them. Presently I would like to advance her diet to a transitional, low fiber diet and see how she tolerates this change. We will also need to transition her to oral antibiotics and we will plan to conference with the hospitalist service on this latter account. I discussed with Mrs. Vyas that it is conceivable she could be ready for hospital discharge by tomorrow if her trajectory continues. Charges/Coding Visit Charges Inpatient E&M: 13940 Subs Hosp L2
[2023-10-07] MEDS: Pantoprazole Sodium 40 MG in 0.9% Normal Saline (100mL MB+) 100 ML 330 MG IV (09:57)
[2023-10-07 09:58] VITALS: BP 136/62; PULSE 89; RESP 20; TEMP 37.1; O2SAT 100
--- NOTE | 2023-10-07 12:28 | PN.HOSP_ITS ---
Subjective Subjective Doing well, pain is improving will advance her diet today. CT scan of her abdomen pelvis that showed that the abscess has grown slightly from 2.1 to 2.4 cm Objective Data Objective Data Vital Signs: Vital Signs Temp Pulse Resp BP Pulse Ox O2 Del Method 98.7 F 89 20 H 136/62 H 100 Room Air 10/07/23 09:58 10/07/23 09:58 10/07/23 09:58 10/07/23 09:58 10/07/23 09:58 10/07/23 09:58 Oxygen Delivery Method Room Air Weight: 164 lb 3.91 oz Body Mass Index (BMI) 24.9 Intake & Output: Intake and Output for Last 24 Hours 10/06/23 10/07/23 10/08/23 03:59 03:59 03:59 Intake Total 4257.5 / 4257.5 5516.5 / 5516.5 1570 / 1570 Balance 4257.5 / 4257.5 5516.5 / 5516.5 1570 / 1570 Lab / Micro Data 10/07/23 06:15 10/07/23 06:15 Labs: Laboratory Results - last 24 hr 10/07/23 06:15: WBC 11.8 H, RBC 3.59 L, Hgb 8.6 L, Hct 28.6 L, MCV 79.7 L, MCH 24.0 L, MCHC 30.1 L, RDW Std Deviation 49.1 H, RDW Coeff of Tashi 16.9 H, Plt Count 368, MPV 9.2, Immature Gran % (Auto) 0.800, Neut % (Auto) 70.0, Lymph % (Auto) 15.2 L, [place] % (Auto) 11.0 H, Eos % (Auto) 2.7, Baso % (Auto) 0.3, Absolute Neuts (auto) 8.2 H, Absolute Lymphs (auto) 1.79, Nucleated RBC % 0, Sodium 142, Potassium 3.1 L, Chloride 112 H, Carbon Dioxide 26.0, Anion Gap 4 L, BUN 1 L, Creatinine 0.54 L, Estim Creat Clear Calc 114.55, Est GFR (MDRD) Af Amer 147, Est GFR (MDRD) Non-Af 122, BUN/Creatinine Ratio 1.8 L, Glucose 97, Calcium 8.1 L Micro: Microbiology 10/05/23 05:30 Urine, Random Urine Culture - Final Klebsiella pneumoniae sp pneum 10/05/23 20:20 Stool Stool Lactoferrin - Final 10/05/23 20:20 Stool Enteric Bacteriology - Final 10/05/23 13:32 Stool C. difficile GDH Antigen & Toxins - Final Toxigenic C. difficile 10/05/23 13:32 Stool C. difficile DNA Amplification - Final Radiography Diagnostic Testing: Radiology Impression Abdomen/Pelvis CT 10/07/23 06:00 IMPRESSION: Colitis with partial improvement of the colonic wall thickening. There is redemonstration of intramural abscess involving the sigmoid colon, similar to prior. There is new small volume ascites. Periportal edema present about the liver. Electronically Signed: Tyrone Canela MD at 6:16 EST , Physical Exam Narrative General: Alert, Oriented x3, Cooperative, No apparent distress HEENT: Atraumatic, PERRLA, EOMI, Normocephalic Oral: Moist Mucosa Neck: Supple, No JVD Lungs: Clear to auscultation, Normal air movement, No rhonchi, No wheeze, No rales Cardiovascular: Regular rate, Regular Rhythm, Normal S1, Normal S2, No murmurs Abdomen: Soft, tender, Non-Distended, No Hepato-splenomegaly Extremities: No edema, Capillary Refill Less than 3 Seconds Skin: No rashes, No breakdown Musculoskeletal: No Tenderness to Palpation of Joints or Extremities Neurological: Cranial nerves II-XII grossly intact, Motor Exam 5/5 strength throughout, Sensory exam intact to light touch and pain Psych/Mental Status: Normal Affect, Appropriate Assessment & Plan Assessment/Plan (1) Diverticular disease of intestine with perforation and abscess: PLAN: Plan 1. Subacute sigmoid diverticulitis with perforation and intramural abscess in the setting of acute C. difficile colitis ? She was recently admitted to the hospital for perforated diverticulitis and was on antibiotics and then she presented back to the hospital with increasing abdominal pain and fever and stool studies demonstrate C. difficile colitis ? Given the increase in the size of the abscess general surgery would feel more comfortable if we treated for enteric pathogens in the setting of the abscess t herefore we will start her on p.o. Augmentin as she tolerated Zosyn previously. If her white count continues to improve and her symptoms continue to improve then would anticipate discharge with p.o. vancomycin for 14 days and p.o. Augmentin for 7 ? Appreciate general surgery's assistance ? Continue with pain management 2. Chronic iron deficiency anemia ? Stable ? We will place on IV iron and then plan to discharge on p.o. iron supplementation based on iron studies from 09/19/2023 3. Anxiety/depression ? Stable ? Continue with her home medications DVT: Heparin Charges/Coding Visit Charges Inpatient E&M: 62497 Subs Hosp L2
[2023-10-07] MEDS: Acetaminophen 325 MG Tablet 650 MG PO ×2 (14:01→20:02)
[2023-10-07 16:00] VITALS: BP 107/51; PULSE 76; RESP 18; TEMP 36.8; O2SAT 95
[2023-10-07] MEDS: Amox/Clavulanate 875 MG Tablet PO ×2 (16:03→22:08)
[2023-10-07] MEDS: Potassium Phosphate 21 MMOL in 0.9% Normal Saline (250mL Bag) 250 ML 84 MMOL IV (16:05)
[2023-10-07] MEDS: Sertraline 50 MG Tablet 150 MG PO (16:20)
[2023-10-07] MEDS: Magnesium Sulfate 4gm/100mL 4 GM/100 ML IV.SOLN. IV (16:21)
[2023-10-07] MEDS: Ensure Plus High Protein 120 ML LIQUID PO ×2 (16:27→22:08)
[2023-10-07 20:00] VITALS: BP 117/55; PULSE 76; RESP 16; TEMP 37.1; O2SAT 95
[2023-10-07] MEDS: MELATONIN 3 MG TABLET PO (23:28)
[2023-10-07 23:30] VITALS: BP 107/48; PULSE 84; RESP 16; TEMP 36.8; O2SAT 98
[2023-10-08] MEDS: KCl 20MEQ in D5NS 20 MEQ/1,000 ML IV.SOLN. 150 MEQ IV (03:15)
[2023-10-08] MEDS: Acetaminophen 325 MG Tablet 650 MG PO (03:16)
[2023-10-08] MEDS: oxyCODONE 5 MG Tablet PO (03:16)
[2023-10-08 03:20] VITALS: BP 124/51; PULSE 85; RESP 16; TEMP 38; O2SAT 95
[2023-10-08] MEDS: 0.9% Saline Lock 10 ML Syringe IV (03:49)
[2023-10-08] MEDS: Ondansetron 4 MG/2 ML Vial IV ×2 (03:49→13:59)
[2023-10-08 06:00] VITALS: BMI 24.8
[2023-10-08] MEDS: Vancomycin 125 MG/5 ML Susp PO.SYRINGE PO ×4 (06:21→23:47)
[2023-10-08] MEDS: Ketorolac 15 MG/ML Vial IV ×2 (06:22→18:03)
[2023-10-08] MEDS: Heparin Injection (Vial) 5,000 UNIT/ML VIAL 5000 UNIT SC ×3 (06:33→21:05)
[2023-10-08 06:38] VITALS: TEMP 37.1
[2023-10-08 07:32] LABS: Absolute Neutrophil Count 9.4 X10^3/uL (2.0-7.7); Basophil# 0.03 X10^3/uL; Basophil% 0.2 % (0-1); Eosinophil# 0.26 X10^3/uL; Hematocrit 26.5 % (37-47); Hemoglobin 8.1 g/dL (12.0-15.0); Lymphocyte % 14.6 % (19-41); Mean Corp Hgb Conc 30.6 g/dL (32-36); Mean Corpuscular Hgb 24.2 pg (27.0-32.0); Mean Corpuscular Volume 79.1 fL (81-99); Mean Platelet Vol. 9.3 fl (6.2-12.0); Monocyte# 1.33 X10^3/uL; Monocyte% 10.2 % (0-10); NRBC Flagged by Analyzer 0 % (0-5); Neutrophil # 9.36 X10^3/uL (2.7-7.7); Neutrophil % 71.8 % (47-70); Platelet Count 345 K/mm3 (150-450); RBC Distribution Width SD 48.5 fl (35.1-43.9); Red Blood Count 3.35 M/mm3 (4.2-5.4)
[2023-10-08 07:46] LABS: Anion Gap 2 (5-15); BUN 2 mg/dL (7-18); BUN/Creat Ratio 4.1 RATIO (10-20); Calcium,Total 8.3 mg/dL (8.5-10.1); Chloride 111 mmol/L (98-107); Creatinine, Serum 0.49 mg/dL (0.55-1.02); EST Glomerular Filtration Rate 138 mL/min (>60); Est Glom Filt Rate - Afr Amer 167 mL/min (>60); Estimated Creatinine Clearance 126.24 ml/min; Glucose 99 mg/dL (74-106); Magnesium 2.1 mg/dL (1.6-2.6); Phosphorus 2.7 mg/dL (2.5-4.9); Potassium 3.7 mmol/L (3.5-5.1); Sodium Level 139 mmol/L (136-145)
--- NOTE | 2023-10-08 08:25 | PN.SURG_ITS ---
Subjective Subjective Seen and examined during AM rounds. She reports that she is feeling better this morning after sleeping better and that her diet was agreeable to her yesterday. She initially shares that she has not had a bowel movement, but then states she had 3 large loose bowel movements in her bed. She confirms that her abdominal pain is better this morning. Objective Data Objective Data Vital Signs: Vital Signs Temp Pulse Resp BP Pulse Ox O2 Del Method 98.7 F 85 16 124/51 H 95 Room Air 10/08/23 06:38 10/08/23 03:20 10/08/23 03:20 10/08/23 03:20 10/08/23 03:20 10/08/23 03:20 Oxygen Delivery Method Room Air Weight: 163 lb 12.855 oz Body Mass Index (BMI) 24.8 Intake & Output: Intake and Output for Last 24 Hours 10/06/23 10/07/23 10/08/23 23:59 23:59 23:59 Intake Total 6959.0 / 6959.0 4707 / 5107 2265 / 2265 Balance 6959.0 / 6959.0 4707 / 5107 2265 / 2265 Lab / Micro Data 10/08/23 07:14 10/08/23 07:14 Labs: Laboratory Results - last 24 hr 10/08/23 07:14: WBC 13.0 H, RBC 3.35 L, Hgb 8.1 L, Hct 26.5 L, MCV 79.1 L, MCH 24.2 L, MCHC 30.6 L, RDW Std Deviation 48.5 H, RDW Coeff of Tashi 17.0 H, Plt Count 345, MPV 9.3, Immature Gran % (Auto) 1.200 H, Neut % (Auto) 71.8 H, Lymph % (Auto) 14.6 L, [place] % (Auto) 10.2 H, Eos % (Auto) 2.0, Baso % (Auto) 0.2, Absolute Neuts (auto) 9.4 H, Absolute Lymphs (auto) 1.90, Nucleated RBC % 0, Sodium 139, Potassium 3.7, Chloride 111 H, Carbon Dioxide 26.0, Anion Gap 2 L, BUN 2 L, Creatinine 0.49 L, Estim Creat Clear Calc 126.24, Est GFR (MDRD) Af Amer 167, Est GFR (MDRD) Non-Af 138, BUN/Creatinine Ratio 4.1 L, Glucose 99, Calcium 8.3 L, Phosphorus 2.7, Magnesium 2.1 Micro: Microbiology 10/05/23 05:30 Urine, Random Urine Culture - Final Klebsiella pneumoniae sp pneum 10/05/23 20:20 Stool Stool Lactoferrin - Final 10/05/23 20:20 Stool Enteric Bacteriology - Final 10/05/23 13:32 Stool C. difficile GDH Antigen & Toxins - Final Toxigenic C. difficile 10/05/23 13:32 Stool C. difficile DNA Amplification - Final Physical Exam Const oriented x3 and no apparent distress Resp normal respiratory effort GI GI Narrative: Improved abdominal distention, soft, decreased abdominal tenderness Assessment & Plan Assessment/Plan (1) C. difficile colitis: (2) Colitis: PLAN: Plan Patient is a 58-year-old female who has been evaluated 3 times in our ER and this represents her second admission for complicated diverticulitis?with associated pancolonic colitis. She tested positive for toxigenic C. difficile colitis 3 days ago. This morning she reports further symptomatic improvements, however, her white blood cell count is up trended and her differential is concerning for worsening infection. She was both advanced in her diet as well as transition to oral antibiotics yesterday so it is difficult to tease out if either of these variables are the cause or a third issue is at hand. Either way, given the severity of her diagnoses and the recurrence of her presentations I have advocated for additional inpatient observation. Case was discussed with primary hospitalist and we will look to minimize Mrs. Vyas narcotic burden as well as consider initiating a probiotic (although while acknowledging that her antibiotics may minimize any benefit here). If she has further elevation of her white blood cell count tomorrow, this may be grounds for enlisting infectious disease and/or gastroenterology and repeating her CT imaging. I am encouraged by the positive trend and her clinical exam. ? Continue diet as is ? Continue oral Vanco and Augmentin ? Repeat CBC in a.m. ? Consider addition of probiotic ? Wean narcotic Charges/Coding Visit Charges Inpatient E&M: 25156 Subs Hosp L2
--- NOTE | 2023-10-08 09:18 | PN.HOSP_ITS ---
Subjective Subjective Pain is improved and diarrhea has improved however white count went up today Objective Data Objective Data Vital Signs: Vital Signs Temp Pulse Resp BP Pulse Ox O2 Del Method 98.7 F 85 16 124/51 H 95 Room Air 10/08/23 06:38 10/08/23 03:20 10/08/23 03:20 10/08/23 03:20 10/08/23 03:20 10/08/23 03:20 Oxygen Delivery Method Room Air Weight: 163 lb 12.855 oz Body Mass Index (BMI) 24.8 Intake & Output: Intake and Output for Last 24 Hours 10/07/23 10/08/23 10/09/23 03:59 03:59 03:59 Intake Total 5516.5 / 5516.5 6077 / 6077 895 / 895 Balance 5516.5 / 5516.5 6077 / 6077 895 / 895 Lab / Micro Data 10/08/23 07:14 10/08/23 07:14 Labs: Laboratory Results - last 24 hr 10/08/23 07:14: WBC 13.0 H, RBC 3.35 L, Hgb 8.1 L, Hct 26.5 L, MCV 79.1 L, MCH 24.2 L, MCHC 30.6 L, RDW Std Deviation 48.5 H, RDW Coeff of Tashi 17.0 H, Plt Count 345, MPV 9.3, Immature Gran % (Auto) 1.200 H, Neut % (Auto) 71.8 H, Lymph % (Auto) 14.6 L, [place] % (Auto) 10.2 H, Eos % (Auto) 2.0, Baso % (Auto) 0.2, Absolute Neuts (auto) 9.4 H, Absolute Lymphs (auto) 1.90, Nucleated RBC % 0, Sodium 139, Potassium 3.7, Chloride 111 H, Carbon Dioxide 26.0, Anion Gap 2 L, BUN 2 L, Creatinine 0.49 L, Estim Creat Clear Calc 126.24, Est GFR (MDRD) Af Amer 167, Est GFR (MDRD) Non-Af 138, BUN/Creatinine Ratio 4.1 L, Glucose 99, Calcium 8.3 L, Phosphorus 2.7, Magnesium 2.1 Micro: Microbiology 10/05/23 05:30 Urine, Random Urine Culture - Final Klebsiella pneumoniae sp pneum 10/05/23 20:20 Stool Stool Lactoferrin - Final 10/05/23 20:20 Stool Enteric Bacteriology - Final 10/05/23 13:32 Stool C. difficile GDH Antigen & Toxins - Final Toxigenic C. difficile 10/05/23 13:32 Stool C. difficile DNA Amplification - Final Physical Exam Narrative General: Alert, Oriented x3, Cooperative, No apparent distress HEENT: Atraumatic, PERRLA, EOMI, Normocephalic Oral: Moist Mucosa Neck: Supple, No JVD Lungs: Clear to auscultation, Normal air movement, No rhonchi, No wheeze, No rales Cardiovascular: Regular rate, Regular Rhythm, Normal S1, Normal S2, No murmurs Abdomen: Soft, tender, Non-Distended, No Hepato-splenomegaly Extremities: No edema, Capillary Refill Less than 3 Seconds Skin: No rashes, No breakdown Musculoskeletal: No Tenderness to Palpation of Joints or Extremities Neurological: Cranial nerves II-XII grossly intact, Motor Exam 5/5 strength throughout, Sensory exam intact to light touch and pain Psych/Mental Status: Normal Affect, Appropriate Assessment & Plan Assessment/Plan (1) Diverticular disease of intestine with perforation and abscess: PLAN: Plan 1. Subacute sigmoid diverticulitis with perforation and intramural abscess in the setting of acute C. difficile colitis ? She was recently admitted to the hospital for perforated diverticulitis and was on antibiotics and then she presented back to the hospital with increasing abdominal pain and fever and stool studies demonstrate C. difficile colitis ? Continue with Augmentin and p.o. vancomycin will recheck white blood cell count in the morning ? Appreciate general surgery's assistance ? Continue with pain management 2. Chronic iron deficiency anemia ? Stable ? We will place on IV iron and then plan to discharge on p.o. iron supple mentation based on iron studies from 09/19/2023 3. Anxiety/depression ? Stable ? Continue with her home medications DVT: Heparin Charges/Coding Visit Charges Inpatient E&M: 49260 Subs Hosp L2
[2023-10-08 09:20] VITALS: BP 121/60; PULSE 82; RESP 18; TEMP 37.2; O2SAT 95
[2023-10-08] MEDS: Ensure Plus High Protein 120 ML LIQUID PO ×3 (09:59→21:05)
[2023-10-08] MEDS: Sodium Ferric Gluconat/Sucrose 250 MG in 0.9% Normal Saline (250mL Bag) 250 ML 135 MG IV (10:00)
[2023-10-08] MEDS: Pantoprazole Sodium 40 MG in 0.9% Normal Saline (100mL MB+) 100 ML 330 MG IV (10:00)
[2023-10-08 10:30] VITALS: O2SAT 95
[2023-10-08] MEDS: Amox/Clavulanate 875 MG Tablet PO ×2 (10:37→21:05)
[2023-10-08] MEDS: lamoTRIgine 150 MG Tablet PO ×2 (10:37→21:05)
[2023-10-08] MEDS: Sertraline 50 MG Tablet 150 MG PO (11:47)
[2023-10-08] MEDS: DiphenhydrAMINE 50 MG/ML Syringe 25 MG IV (13:59)
[2023-10-08] MEDS: Pantoprazole Sodium 40 MG Tablet PO (14:38)
[2023-10-08 17:00] VITALS: BP 117/62; PULSE 80; RESP 18; TEMP 37.3; O2SAT 95
[2023-10-08 19:39] VITALS: BP 112/56; PULSE 80; RESP 16; TEMP 37.4; O2SAT 95
--- NOTE | 2023-10-09 01:59 | PN.SURG_ITS ---
Subjective Subjective Patient seen and examined during AM rounds. She reports that she is feeling better overall. She states that her pain, specifically, is better. She notes that the nausea she experienced yesterday is resolved. When pressed, she confirms that she is simply not looking to be out of the hospital on the account of the holiday tomorrow as she recognizes the day following will not be a holiday and she does not want to be readmitted. Objective Data Objective Data Vital Signs: Vital Signs Temp Pulse Resp BP Pulse Ox O2 Del Method 99.4 F H 80 16 112/56 L 95 Room Air 10/08/23 19:39 10/08/23 19:39 10/08/23 19:39 10/08/23 19:39 10/08/23 19:39 10/08/23 19:45 Oxygen Delivery Method Room Air Weight: 163 lb 12.855 oz Body Mass Index (BMI) 24.8 Intake & Output: Intake and Output for Last 24 Hours 10/07/23 10/08/23 10/09/23 23:59 23:59 23:59 Intake Total 4707 / 5107 3515 / 3515 Balance 4707 / 5107 3515 / 3515 Lab / Micro Data 10/09/23 05:05 10/09/23 05:05 Labs: Laboratory Results - last 24 hr 10/08/23 07:14: WBC 13.0 H, RBC 3.35 L, Hgb 8.1 L, Hct 26.5 L, MCV 79.1 L, MCH 24.2 L, MCHC 30.6 L, RDW Std Deviation 48.5 H, RDW Coeff of Tashi 17.0 H, Plt Count 345, MPV 9.3, Immature Gran % (Auto) 1.200 H, Neut % (Auto) 71.8 H, Lymph % (Auto) 14.6 L, [place] % (Auto) 10.2 H, Eos % (Auto) 2.0, Baso % (Auto) 0.2, Absolute Neuts (auto) 9.4 H, Absolute Lymphs (auto) 1.90, Nucleated RBC % 0, Sodium 139, Potassium 3.7, Chloride 111 H, Carbon Dioxide 26.0, Anion Gap 2 L, BUN 2 L, Creatinine 0.49 L, Estim Creat Clear Calc 126.24, Est GFR (MDRD) Af Amer 167, Est GFR (MDRD) Non-Af 138, BUN/Creatinine Ratio 4.1 L, Glucose 99, Calcium 8.3 L, Phosphorus 2.7, Magnesium 2.1 Micro: Microbiology 10/05/23 05:30 Urine, Random Urine Culture - Final Klebsiella pneumoniae sp pneum 10/05/23 20:20 Stool Stool Lactoferrin - Final 10/05/23 20:20 Stool Enteric Bacteriology - Final 10/05/23 13:32 Stool C. difficile GDH Antigen & Toxins - Final Toxigenic C. difficile 10/05/23 13:32 Stool C. difficile DNA Amplification - Final Physical Exam Const oriented x3 and no apparent distress Resp normal respiratory effort GI GI Narrative: Decreased abdominal distention, soft, minimally tender to palpation across the suprapubic position?otherwise unremarkable Assessment & Plan Assessment/Plan (1) C. difficile colitis: (2) Colitis: PLAN: Plan Patient is a 58-year-old female who has been evaluated 3 times in our ER and this represents her second admission for complicated diverticulitis?with associated pancolonic colitis. She tested positive for toxigenic C. difficile colitis. This morning she reports further symptomatic improvements?specifically with respect to pain. She is happy to report that she did not require any narcotic pain medication overnight. Her white blood cell count is stable from yesterday and although she has had some low-grade fevers, this is expected given her ongoing infection. Her exam is reassuring. I discussed with her that she has been on the same treatment as she would be receiving as an outpatient and clinically she is improved. I do not believe there would be any significant benefit in repeating her CT imaging?especially given her reassuring abdominal exam. I was careful to articulate return precautions and give her direction on what to do should she feel as though her symptoms are worsening. Lastly, Mrs. Vyas states that she plans to aggressively address her need to undergo smoking cessation to improve her condition. ? Continue transitional diet ? Continue oral Vanco and Augmentin ? Follow-up as an outpatient in 1.5 to 2 weeks with plans for repeat CT imaging The above has been discussed with patient's hospitalist Dr. Lay, who is in agreement Charges/Coding Visit Charges Inpatient E&M: 27655 Subs Hosp L2
[2023-10-09 02:00] VITALS: BP 101/41; PULSE 82; RESP 16; TEMP 37.7; O2SAT 94
[2023-10-09] MEDS: Acetaminophen 325 MG Tablet 650 MG PO (02:41)
[2023-10-09] MEDS: Heparin Injection (Vial) 5,000 UNIT/ML VIAL 5000 UNIT SC (05:40)
[2023-10-09] MEDS: Vancomycin 125 MG/5 ML Susp PO.SYRINGE PO (05:40)
[2023-10-09 06:00] VITALS: BMI 25.2
[2023-10-09 06:14] LABS: Absolute Lymphocyte Count 2.07 X10^3/uL (0.83-4.51); Basophil# 0.04 X10^3/uL; Basophil% 0.3 % (0-1); Eosinophil# 0.17 X10^3/uL; Eosinophils% 1.3 % (0-5); Hematocrit 27.4 % (37-47); Hemoglobin 8.4 g/dL (12.0-15.0); Lymphocyte # 2.07 X10^3/ul (0.83-4.51); Lymphocyte % 15.8 % (19-41); Mean Corp Hgb Conc 30.7 g/dL (32-36); Mean Corpuscular Hgb 24.1 pg (27.0-32.0); Mean Corpuscular Volume 78.5 fL (81-99); Mean Platelet Vol. 9.6 fl (6.2-12.0); Monocyte# 1.49 X10^3/uL; Monocyte% 11.4 % (0-10); NRBC Flagged by Analyzer 0 % (0-5); Neutrophil # 8.95 X10^3/uL (2.7-7.7); Neutrophil % 68.5 % (47-70); Platelet Count 383 K/mm3 (150-450); RBC Distribution Width CV 17.2 % (11.6-14.6); RBC Distribution Width SD 48.3 fl (35.1-43.9); Red Blood Count 3.49 M/mm3 (4.2-5.4); White Blood Count 13.1 K/mm3 (4.4-11.0)
[2023-10-09 06:37] LABS: Anion Gap 4 (5-15); BUN 2 mg/dL (7-18); BUN/Creat Ratio 3.3 RATIO (10-20); Calcium,Total 9.1 mg/dL (8.5-10.1); Chloride 109 mmol/L (98-107); EST Glomerular Filtration Rate 109 mL/min (>60); Est Glom Filt Rate - Afr Amer 132 mL/min (>60); Glucose 104 mg/dL (74-106); Potassium 3.5 mmol/L (3.5-5.1); Sodium Level 140 mmol/L (136-145)
[2023-10-09 08:13] VITALS: BP 107/61; PULSE 77; RESP 18; TEMP 37.1; O2SAT 96
--- NOTE | 2023-10-09 10:33 | DCINST_ITS ---
Discharge Instructions Diet Discharge Diet: Low fat / Low cholesterol Activity Discharge Activity: Return to Normal Activity Dressing / Incision Call your doctor if you observe: Fever of 101 or Higher, Shortness of breath, Dizziness, Fainting spells, Swelling in the ankles, Chest pain and Increased palpitations (irregular heartbeat) Follow Up Care Test Results: Test results from this visit will be discussed in further detail at your follow- up appointment, if applicable. Discharge Plan Admission Admit Date/Time: 10/05/23 05:44 Attending Provider: Alphonso Lay Primary Care Provider: Taylor Schneider Consulting Providers: Gato Rasheed Discharge Orders/Prescriptions Prescriptions: New amoxicillin-pot clavulanate 875-125 mg Tablet 1 tab PO BID 6 Days Qty: 12 0RF vancomycin 125 mg capsule 125 mg PO Q6 12 Days Qty: 48 0RF ferrous sulfate 325 mg (65 mg iron) tablet,delayed release (DR/EC) 325 mg PO DAILY Qty: 30 0RF Continued sertraline 100 mg tablet 150 mg PO Q24H Patient Comments: Take 1.5 Tablet By Oral Route at bedtime. lamotrigine 150 mg tablet 300 mg PO DAILY Patient Comments: Take 1 Tablet By Oral Route 2 time(s) per day oxycodone 5 mg Tablet 5 mg PO Q4H PRN PRN (Reason: Pain Score 4-10) 5 Days Qty: 20 0RF Referrals / Follow Up: Taylor Schneider DO [Primary Care Provider] - Within 1 Week Joseph Bateman MD [Med Staff - Active Staff] - Within 2 Weeks Disposition Disposition (needs filled in before D/C Order can be placed): Home, Self Care
--- NOTE | 2023-10-09 12:48 | DS.PCM_ITS ---
Providers Date of Admission: 10/05/23 Primary Care Physician: Dr. Taylor Schneider, DO Reason For Visit: ACUTE PERFORATED SIGMOID DIVERTICULITIS WITH 2.1 Diagnosis Discharge Diagnosis (1) C. difficile colitis: Status: Acute Code(s): A04.72 - Enterocolitis due to Clostridium difficile, not specified as recurrent (2) Colitis: Status: Acute Code(s): K52.9 - Noninfective gastroenteritis and colitis, unspecified Medications at Discharge Home Medications lamotrigine 150 mg tablet 300 mg PO DAILY depression 09/18/23 sertraline 100 mg tablet 150 mg PO Q24H depression 09/18/23 oxycodone 5 mg tablet 5 mg PO Q4H PRN PRN Pain Score 4-10 5 days #20 tabs 09/21/23 amoxicillin 875 mg-potassium clavulanate 125 mg tablet 1 tab PO BID 6 days #12 tabs 10/09/23 ferrous sulfate 325 mg (65 mg iron) tablet,delayed release 325 mg PO DAILY #30 tabs 10/09/23 vancomycin 125 mg capsule 125 mg PO Q6 12 days #48 caps 10/09/23 Hospital Course Operations None Procedures None Summary of Care Provided Minutes Spent on Discharge: 33 Hospital Course: Per HPI: ROLANDO VYAS, is a 58 F with a past medical history of tobacco abuse, history of cannabis abuse, chronic anemia; due to iron deficiency, depression, listed history of allergies to penicillin; which causes hives and recent admission here from 09/18/2023 to 09/21/2023 for treatment of acute per forated colonic diverticulitis who re-presents to [facility] ER complaining of worsening abdominal pain. Ms. Vyas reports her symptoms began approximately 2 weeks prior to admission as she was careful to take all of her ciprofloxacin and Flagyl in addition to being compliant with her clear liquid diet with a slow advancement to normal food with the gradual onset of progressively worsening abdominal pain. During her last admission she was seen in consultation by Dr. Landaverde with plan to have patient take 10 more days of antibiotics and to follow-up in the office. According to the records the patient actually came to this ER on October 03, 2023 with complaints of abdominal pain and continued diarrhea so she called her surgeon's office and was instructed to come to the ER for further evaluation and treatment with a CT scan that admission showing inflammatory or infectious colitis without perforation, free air or abscess. Then earlier on October 04, 2023, she noticed her pain was getting worse so she decided to come back in for further evaluation and treatment. She denies associated fever, chills or vomiting but she does admit to nausea and nonbloody diarrhea. In the ER her CT scan of the abdomen pelvis was positive for an intramural ~2.1 cm abscess overlying her previous area of colonic diverticulitis with perforation with laboratory evidence of leukocytosis of 15.7 present on admission and hypokalemia of 3 mmol/L present on admission and she was then admitted to the general medical floor for ongoing care for stay that is expected to be greater than 48 hours. Hospital Course: 1. Subacute sigmoid diverticulitis with perforation and intramural abscess in the setting of acute C. difficile colitis ? She was recently admitted to the hospital for perforated diverticulitis and was on antibiotics and then she presented back to the hospital with increasing abdominal pain and fever and stool studies demonstrate C. difficile colitis ? Continue with Augmentin and p.o. vancomycin will recheck white blood cell count in the morning ? Appreciate general surgery's assistance ? Continue with pain management 10/09/2023: White blood cell count remained stable and she is eating well without any significant abdominal pain and no diarrhea. She does have the intramural abscess in her colon that we are aware of and monitoring, will continue with Augmentin for 6 more days and then 12 more days of p.o. vancomycin. At which point she is to follow-up with general surgery as an outpatient for further evaluation of this intramural abscess in her colon. I discussed with her the plan for discharge today she expressed understanding of the risk and benefits of going home and would like to go home today. 2. Chronic iron deficiency anemia ? Stable ? She was given 2 doses of IV iron while admitted and will be discharged on p.o. iron, I do recommend outpatient follow-up 3. Anxiety/depression ? Stable ? Continue with her home medications Physical Exam Narrative General: Alert, Oriented x3, Cooperative, No apparent distress HEENT: Atraumatic, PERRLA, EOMI, Normocephalic Oral: Moist Mucosa Neck: Supple, No JVD Lungs: Clear to auscultation, Normal air movement, No rhonchi, No wheeze, No rales Cardiovascular: Regular rate, Regular Rhythm, Normal S1, Normal S2, No murmurs Abdomen: Soft, non-tender, Non-Distended, No Hepato-splenomegaly Extremities: No edema, Capillary Refill Less than 3 Seconds Skin: No rashes, No breakdown Musculoskeletal: No Tenderness to Palpation of Joints or Extremities Neurological: Cranial nerves II-XII grossly intact, Motor Exam 5/5 strength throughout, Sensory exam intact to light touch and pain Psych/Mental Status: Normal Affect, Appropriate Weight / BMI Weight Weight: 166 lb 3.657 oz Body Mass Index (BMI) 25.2 ABG / Lab / Microbiology Data 10/09/23 05:05 10/09/23 05:05 Laboratory: Laboratory Results - last 24 hr 10/09/23 05:05: WBC 13.1 H, RBC 3.49 L, Hgb 8.4 L, Hct 27.4 L, MCV 78.5 L, MCH 24.1 L, MCHC 30.7 L, RDW Std Deviation 48.3 H, RDW Coeff of Tashi 17.2 H, Plt Count 383, MPV 9.6, Immature Gran % (Auto) 2.700 H, Neut % (Auto) 68.5, Lymph % (Auto) 15.8 L, [place] % (Auto) 11.4 H, Eos % (Auto) 1.3, Baso % (Auto) 0.3, Absolute Neuts (auto) 9.0 H, Absolute Lymphs (auto) 2.07, Nucleated RBC % 0, Sodium 140, Potassium 3.5, Chloride 109 H, Carbon Dioxide 27.0, Anion Gap 4 L, BUN 2 L, Creatinine 0.60, Estim Creat Clear Calc 103.10, Est GFR (MDRD) Af Amer 132, Est GFR (MDRD) Non-Af 109, BUN/Creatinine Ratio 3.3 L, Glucose 104, Calcium 9.1 Microbiology: Microbiology 10/05/23 05:30 Urine, Random Urine Culture - Final Klebsiella pneumoniae sp pneum 10/05/23 20:20 Stool Stool Lactoferrin - Final 10/05/23 20:20 Stool Enteric Bacteriology - Final 10/05/23 13:32 Stool C. difficile GDH Antigen & Toxins - Final Toxigenic C. difficile 10/05/23 13:32 Stool C. difficile DNA Amplification - Final D/C Instructions Discharge Diet: Low fat / Low cholesterol Call your doctor if you observe: Fever of 101 or Higher, Shortness of breath, Dizziness, Fainting spells, Swelling in the ankles, Chest pain and Increased palpitations (irregular heartbeat) Meaningful Use Info Meaningful Use Diagnoses (Choose all that apply): None applicable Discharge Plan Admission Admit Date/Time: 10/05/23 05:44 Attending Provider: Alphonso Lay Primary Care Provider: Taylor Schneider Consulting Providers: Gato Rasheed Discharge Orders/Prescriptions Prescriptions: New amoxicillin-pot clavulanate 875-125 mg Tablet 1 tab PO BID 6 Days Qty: 12 0RF vancomycin 125 mg capsule 125 mg PO Q6 12 Days Qty: 48 0RF ferrous sulfate 325 mg (65 mg iron) tablet,delayed release (DR/EC) 325 mg PO DAILY Qty: 30 0RF Continued sertraline 100 mg tablet 150 mg PO Q24H Patient Comments: Take 1.5 Tablet By Oral Route at bedtime. lamotrigine 150 mg tablet 300 mg PO DAILY Patient Comments: Take 1 Tablet By Oral Route 2 time(s) per day oxycodone 5 mg Tablet 5 mg PO Q4H PRN PRN (Reason: Pain Score 4-10) 5 Days Qty: 20 0RF Referrals / Follow Up: Taylor Schneider DO [Primary Care Provider] - Within 1 Week Joseph Bateman MD [Med Staff - Active Staff] - Within 2 Weeks Disposition Disposition (needs filled in before D/C Order can be placed): Home, Self Care Charges/Coding Visit Charges Inpatient E&M: 20087 Disch Hosp >30min
== END 2023-10-09 11:35 | disposition home or self-care (01) | DRG 392 ==
LOC: ED 05:37 → MS3 06:21
PROVIDERS: Admitting Provider Internal Medicine; Emergency Provider Emergency Medicine; PCP Family Medicine; Visit Provider Family Medicine
DX: K57.20 Diverticulitis of large intestine with perforation and abscess without bleeding (principal); A04.72 Enterocolitis due to Clostridium difficile, not specified as recurrent; D50.9 Iron deficiency anemia, unspecified; F32.A Depression, unspecified; F17.200 Nicotine dependence, unspecified, uncomplicated; E87.6 Hypokalemia; F41.9 Anxiety disorder, unspecified; Z80.0 Family history of malignant neoplasm of digestive organs
CPT/HCPCS: 36415; 74177; 80048; 80053; 81001; 83605; 83630; 83735; 84100; 84443; 85025; 87077; 87086; 87088; 87177; 87186; 87209; 87493; 87506; 93005; 94668; 99285; 99406; J7030; J7050; Q9967; A4216; J2405; J2916

== ENCOUNTER → 2023-10-31 | Outpatient (CLI) | payer BC, SELFPAY ==
--- NOTE | 2023-10-31 15:40 | CT_ITS ---
STUDY: CT ABDOMEN AND PELVIS WITH CONTRAST REASON FOR EXAM: Female, 58 years old. Perforation and abcess of intestine RADIATION DOSAGE (If Supplied By Facility): CTDIvol = ( 14.83 ) mGy, DLP = ( 651.72 ) mGycm TECHNIQUE: Transaxial images were obtained from the dome of the diaphragm to the symphysis pubis without oral contrast. IV 100mL Isovue-370 was administered. Sagittal and coronal images were reconstructed. Individualized dose optimization techniques were used for this CT. COMPARISON: None. FINDINGS: The visualized lung bases are unremarkable. The visualized portions of the heart are within normal limits. Normal liver. Contracted thick-walled gallbladder without calcified stones or pericholecystic edema. Normal spleen. Normal pancreas. Normal bilateral adrenal glands. Normal right kidney. Normal left kidney. Normal visualized stomach. Normal small intestine. Normal colon. No evidence for acute appendicitis Atherosclerotic changes of the aorta without evidence for aneurysm. Normal inferior vena cava. Normal retroperitoneum. Incompletely distended thick walled bladder likely of no significance. Small cystic structure in the left adnexa most likely ovarian. Small bilateral fat-containing inguinal hernias. Normal osseous structures. Previously noted acute colitis and coexisting intramural sigmoid abscess has resolved. CT/Abdomen/Pelvis WITH Contrast IMPRESSION: No evidence for small bowel obstruction or other acute abnormality Status post resolution of the previously noted acute colitis and intramural sigmoid abscess. Other findings as above Electronically Signed: Jin Chin MD at 21:34 EST ,
--- OUTSIDE RECORDS SUMMARY | 2023-10-31 15:42 | XMS RPT_ITS | CCD ---
Author Name Unknown Address [address] [place] [address] Organization [facility] Care Team Providers Care Director Of Corporate Sponsorships Name Role Phone Yg INSTRUCTOR OF NURSING.Eliz WARD Primary Care Provider ELIZ FOURNIER Referring Unavailable ELIZ FOURNIER Primary Care Unavailable SHEETSCLARE Referring Unavailable ELIZ FOURNIER Primary Care Unavailable SHEETSCLARE C Referring Unavailable ELIZ FOURNIER Primary Care Unavailable Yg INSTRUCTOR OF NURSING.Eliz WARD Primary Care Provider Allergies Allergy Classification Reported Allergen(s) Allergy Type Date of Onset Reaction(s) Facility (9 sources) buPROPion; Translations: [BUPROPION HCL] Drug Allergy 3 Mental Status Change [facility] Work Phone: (9 sources) DULoxetine; Translations: [DULOXETINE] Drug Allergy 3 Other: See Comments [facility] Work Phone: (9 sources) FLUoxetine; Translations: [FLUOXETINE HCL] Drug Allergy 3 Mental Status Change [facility] Work Phone: (9 sources) Penicillins; Translations: [PENICILLINS] Propensity to adverse reactions 1124-200 6 Rash [facility] Work Phone: Medications Completed/Discontinued Medications Medication Drug Class(es) Dates Sig (Normalized) Sig (Original) lamoTRIgine 150 mg oral tablet (8 sources) Mood Stabilizer, Anti-epileptic Agent Start: 04-04-2017 take 1 tablet by mouth once daily lamoTRIgine (LAMICTAL) 150 mg tablet Take 150 mg by mouth once daily. 0 04/04/2017 Active Problems Active Problems Problem Classification Problem Date Documented Da te Episodic/Chronic Disorders of lipid metabolism (8 sources) Mixed hyperlipidemia; Translations: [Mixed hyperlipidemia] Onset: 11-16-2010 06-12-2018 Chronic Mood disorders (8 sources) Depressive disorder; Translations: [Other specified depressive episodes] Onset: 12-13-2006 12-13-2006 Chronic Other nutritional; endocrine; and metabolic disorders (1 source) Hypercalcemia; Translations: [Hypercalcemia] Chronic Other screening for suspected conditions (not mental disorders or infectious disease) (5 sources) Other abnormal and inconclusive findings on diagnostic imaging of breast; Translations: [Encounter for screening mammogram for malignant neoplasm of breast] Onset: 10-19-2022 05-03-2023 Episodic Substance-related disorders (8 sources) Tobacco user; Translations: [Nicotine dependence, unspecified, uncomplicated] Onset: 10-28-2008 10-28-2008 Chronic Thyroid disorders (8 sources) Thyroid nodule; Translations: [Nontoxic single thyroid nodule] Onset: 01-20-2012 10-12-2021 Chronic Past or Other Problems Problem Classification Problem Date Documented Da te Episodic/Chronic Hemorrhoids (8 sources) Internal hemorrhoids; Translations: [Other hemorrhoids] Onset: 04-04-2012 04-04-2012 Episodic Other and unspecified benign neoplasm (8 sources) Benign neoplasm of colon; Translations: [Benign neoplasm of colon, unspecified] Onset: 04-04-2012 10-12-2021 Episodic Results Test Name Value Interpretation Reference Range Facil ity Encounters Encounter Date Encounter Type Care Provider Facility Start: 05-02-2023 Telephone encounter Eliz Fournier APRN.CNP Work Phone: [facility] Procedures Date Procedure Procedure Detail Performing Clinician Start: 11-02-2022 Us breast uni real t isaiah with image limited Clare C Sheets DO Work Phone: Start: 11-02-2022 Mammography Clare S heets DO Work Phone: Start: 10-19-2022 End: 10-19-2022 Mammography Eliz Fournier APRN.CNP Work Phone: Start: 07-12-2022 Lipid 1996 panel - S marina or Plasma Us 1 Work Phone: Start: 05-13-2016 Mammography Eliz poole INSTRUCTOR OF NURSING.ED Work Phone: Start: 04-04-2012 Colonoscopy Eliz poole INSTRUCTOR OF NURSING.METAL DRILLING MACHINE OPERATOR Work Phone: Plan of Treatment Date Care Activity Detail Author Start: 07-12-2027 Lipid 1996 panel - S marina or Plasma Lipid Screening [facility] Start: 07-12-2027 LIPID SCREEN LIPID SCREEN [facility] Start: 07-12-2025 DIABETES SCREEN DIABETES SCREEN [facility] Start: 07-12-2025 Diabetes Screening Diabetes Screenin g [facility] Start: 11-02-2023 Mammography [facility] Start: 10-19-2023 Mammography MAMMOGRAM [facility] Start: 07-12-2023 COVID-19 VACCINE (3 - Booster for Pfizer series) COVID-19 VACCINE (3 - Booster for Pfizer series) [facility] Immunizations Immunization Date Immunization Notes Care Provider Fa juliannety 07-12-2022 influenza, injectabl e, quadrivalent, contains preservative Eliz Yg INSTRUCTOR OF NURSING.METAL DRILLING MACHINE OPERATOR Work Phone: [facility] 07-12-2022 influenza virus vaccine, unspecified formulation [facility] Work Phone: [facility] 08-05-2020 Influenza, injectabl e, Madin Wysox Canine Kidney, preservative free, quadrivalent Eliz Yg INSTRUCTOR OF NURSING.METAL DRILLING MACHINE OPERATOR Work Phone: [facility] 11-24-2006 tetanus toxoid, redu judi diphtheria toxoid, and acellular pertussis vaccine, adsorbed Eliz Yg INSTRUCTOR OF NURSING.[facility] Work Phone: [facility] Work Phone: Payers Date Payer Category Payer Unknown [employer] PPO OOS [id number] 2011-Present [phone] [address] [place] [address] PPO [id number] 2011 Unknown [id number] Social History Date Type Detail Facility Start: 05-17-2011 Tobacco smoking stat us NHIS Smokes tobacco daily [facility] History of tobacco use Cigarette Smoker [facility] Start: 05-17-2011 End: 09-24-2020 Cigarettes smoked current (pack per day) - Reported 1.5 [facility] Start: 05-17-2011 Tobacco use and exposure Smoke less tobacco non-user [facility] Start: 07-12-2022 Alcohol intake Current drinke r of alcohol (finding) [facility] Start: 05-17-2011 Tobacco Comment Started claudia henderson at age 16. [facility] Start: 1965 Sex Assigned At Not on file [facility] Start: 07-02-2022 End: 07-12-2022 Exposure to SARS-CoV-2 (event) Not sure [facility] Start: 09-24-2020 End: 07-12-2022 Tobacco use panel [facility] PHQ2 Score 0 [facility] Clinical Notes 04-04-2012 to 10-11-2023 Telephone Encounter - Keren Martinez MA - 05/04/2023 8:13 AM EDTTelephone Encounter - Keren Martinez MA - 05/02/2023 8:11 AM EDTTelephone Encounter - Ce Martinez MA - 11/02/2022 1:17 PM EST Note Date & Type Note Facility 10-11-2023 Note HNO ID: [id number] Author: Callie Barrett LPN Service: ? Author Type: LICENSED NURSE Type: Progress Notes Filed: 10/11/2023 12:46 PM Note Text: TRANSITIONAL CARE MANAGEMENT (TCM) COMMUNITY MONITORING PROGRAM - [facility] Provider Action/FYI: SUMMARY: Pt discharged from [facility] on 10/09/2023. Admitted for: Subacute sigmoid diverticulitis with intramural abscess Risk score: unknown Patient seen Inpatient [facility] Visit? N/A. Patient seen ICARE Program? N/A. Contact made with patient: No - next outreach attempt will be on next day Outreach ended [facility] 10-11-2023 Note Patient Outreach (AG INTMLW) KASSIDY VYAS ([id number]) 1965 F Date Time Provider Department 10/11/23 CALLIE BARRETT AGTOSINMLJorge During your visit today, we recorded the following information about you: Callie Barrett LPN 10/11/2023 12:46 PM Signed TRANSITIONAL CARE MANAGEMENT (TCM) COMMUNITY MONITORING PROGRAM - [facility] Provider Action/FYI: SUMMARY: Pt discharged from [facility] on 10/09/2023. Admitted for: Subacute sigmoid diverticulitis with intramural abscess Risk score: unknown Patient seen Inpatient [facility] Visit? N/A. Patient seen ICARE Program? N/A. Contact made with patient: No - next outreach attempt will be on next Outreach ended Allergies As of Date: 10/11/2023 Noted Allergy Reaction CYMBALTA (DULOXETINE) 03/06/2013 14 - Other: See Comments Comments: Personal preference not to use PENICILLINS 09/09/2006 2 - Rash PROZAC (FLUOXETINE HCL) 03/06/2013 1 - Mental Status Change Comments: [place] hyper and anxious WELLBUTRIN (BUPROPION HCL) 03/06/2013 1 - Mental Status Change Comments: Very anxious and hyper feeling Date Reviewed: 07/12/2022 Reviewed by: Eliz Fournier APRN.METAL DRILLING MACHINE OPERATOR - Fully Assessed Reason for Visit: Transition Of Care [4074] Cmt: [facility] discharge 10/09/2023 TCM encounter Prescriptions as of 10/11/2023 - sertraline (ZOLOFT) 100 mg tablet Take 100 mg by mouth once daily. - lamoTRIgine (LAMICTAL) 150 mg tablet Take 150 mg by mouth once daily. Problem List As Of Date 10/11/2023 Noted Resolved DEPRESSIVE DISORDER NEC [F32.89] 12/13/2006 TOBACCO USE DISORDER [F17.200] 10/28/2008 Mixed hyperlipidemia [E78.2] 11/16/2010 Fracture of fibula, distal, closed [S82.839A] 12/02/2010 12/30/2014 Thyroid nodule [E04.1] 01/20/2012 Special screening for malignant neoplasms, colo*04/04/2012 12/30/2014 Benign neoplasm of colon [D12.6] 04/04/2012 Hemorrhage of gastrointestinal tract, unspecifi*04/04/2012 12/30/2014 Internal hemorrhoids without mention of complic*04/04/2012 Encounter Status:Closed by CALLIE BARRETT on 10/11/23 [facility] 10-07-2023 Note HNO ID: [id number] Author: Laura Prather MA Service: ? Author Type: Property Site Manager Type: Progress Notes Filed: 10/07/2023 3:17 PM Note Text: ED Follow Up: Patient discharged from [facility] ED on 10/03/2023. 1. How are you feeling since your ED visit? Admitted to [facility] Have your symptoms improved or resolved? In hospital 2. Were you prescribed any medications while in the ED or advised to stop any medication? Not applicable - If yes, were you able to fill your prescriptions? Not applicable -if stopped medication, what was the medication? na 3. Were you advised to schedule a follow up appointment with your provider? Not applicable - If no, Do you feel like you need an appointment scheduled? Not applicable - If yes, Do you need this scheduled now or has this already been scheduled? Not applicable 4. Were you able to contact the office or tongue trimmer provider prior to your ED visit? Not applicable 5. Is there anything else I can do for you today? Not applicable Patient has been admitted and in hospital she will call us as soon as she gets out to make TCM apt. Laura Prather MA [facility] 10-07-2023 Note Patient Outreach (AG FAMPLE) KASSIDY VYAS ([id number]) 1965 F Date Time Provider Department 10/07/23 LAURA PRATHER During your visit today, we recorded the following information about you: Laura Prather MA 10/07/2023 3:17 PM Signed ED Follow Up: Patient discharged from [facility] ED on 10/03/2023. 1. How are you feeling since your ED visit? Admitted to [facility] Have your symptoms improved or resolved? In hospital 2. Were you prescribed any medications while in the ED or advised to stop any medication? Not applicable - If yes, were you able to fill your prescriptions? Not applicable -if stopped medication, what was the medication? na 3. Were you advised to schedule a follow up appointment with your provider? Not applicable - If no, Do you feel like you need an appointment scheduled? Not applicable - If yes, Do you need this scheduled now or has this already been scheduled? Not applicable 4. Were you able to contact the office or tongue trimmer provider prior to your ED visit? Not applicable 5. Is there anything else I can do for you today? Not applicable Patient has been admitted and in hospital she will call us as soon as she gets out to make TCM apt. Laura Prather MA Allergies As of Date: 10/07/2023 Noted Allergy Reaction CYMBALTA (DULOXETINE) 03/06/2013 14 - Other: See Comments Comments: Personal preference not to use PENICILLINS 09/09/2006 2 - Rash PROZAC (FLUOXETINE HCL) 03/06/2013 1 - Mental Status Change Comments: [place] hyper and anxious WELLBUTRIN (BUPROPION HCL) 03/06/2013 1 - Mental Status Change Comments: Very anxious and hyper feeling Date Reviewed: 07/12/2022 Reviewed by: Eliz Fournier APRN.METAL DRILLING MACHINE OPERATOR - Fully Assessed Reason for Visit: ed outreach [Other] Cmt: Ed outreach 10/03/2023 [facility] Prescriptions as of 10/07/2023 - sertraline (ZOLOFT) 100 mg tablet Take 100 mg by mouth once daily. - lamoTRIgine (LAMICTAL) 150 mg tablet Take 150 mg by mouth once daily. Problem List As Of Date 10/07/2023 Noted Resolved DEPRESSIVE DISORDER NEC [F32.89] 12/13/2006 TOBACCO USE DISORDER [F17.200] 10/28/2008 Mixed hyperlipidemia [E78.2] 11/16/2010 Fracture of fibula, distal, closed [S82.839A] 12/02/2010 12/30/2014 Thyroid nodule [E04.1] 01/20/2012 Special screening for malignant neoplasms, colo*04/04/2012 12/30/2014 Benign neoplasm of colon [D12.6] 04/04/2012 Hemorrhage of gastrointestinal tract, unspecifi*04/04/2012 12/30/2014 Internal hemorrhoids without mention of complic*04/04/2012 Encounter Status:Closed by RUBIAALFONSOMARQUEZLAURA on 10/07/23 [facility] 09-23-2023 Note HNO ID: [id number] Author: Alex Escobar RN Service: ? Author Type: Registered Nurse Type: Progress Notes Filed: 09/23/2023 3:46 PM Note Text: TRANSITIONAL CARE MANAGEMENT (TCM) COMMUNITY MONITORING PROGRAM - [facility] Provider Action/FYI: SUMMARY: Pt discharged from [facility] on 09/21/23. Admitted for: Diverticulitis of large intestine with perforation and abscess without bleeding Contact made with patient: No - 2nd unsuccessful attempt - end outreach and close encounter Outreach ended [facility] 09-22-2023 Note HNO ID: [id number] Author: Alex Escobar RN Service: ? Author Type: Registered Nurse Type: Progress Notes Filed: 09/23/2023 3:46 PM Note Text: TRANSITIONAL CARE MANAGEMENT (TCM) COMMUNITY MONITORING PROGRAM - [facility] Provider Action/FYI: SUMMARY: Pt discharged from [facility] on 09/21/23. Admitted for: Diverticulitis of large intestine with perforation and abscess without bleeding Patient seen Inpatient [facility] Visit? No. Patient seen [facility] Program? No. Contact made with patient: No - next outreach attempt will be on next day Outreach ended [facility] 09-22-2023 Note Patient Outreach ( AC) KASSIDY VYAS ([id number]) 1965 F Date Time Provider Department 09/22/23 ALEX ESCOBAR [facility] During your visit today, we recorded the following information about you: Alex Escobar RN 09/23/2023 3:46 PM Signed TRANSITIONAL CARE MANAGEMENT (TCM) COMMUNITY MONITORING PROGRAM - [facility] Provider Action/FYI: SUMMARY: Pt discharged from [facility] on 09/21/23. Admitted for: Diverticulitis of large intestine with perforation and abscess without bleeding Patient seen Inpatient [facility] Visit? No. Patient seen [facility] Program? No. Contact made with patient: No - next outreach attempt will be on next day Outreach ended Alex Escobar RN 09/23/2023 3:46 PM Signed TRANSITIONAL CARE MANAGEMENT ([facility]) COMMUNITY MONITORING PROGRAM - [facility] Provider Action/FYI: SUMMARY: Pt discharged from [facility] on 09/21/23. Admitted for: Diverticulitis of large intestine with perforation and abscess without bleeding Contact made with patient: No - 2nd unsuccessful attempt - end outreach and close encounter Outreach ended Allergies As of Date: 09/22/2023 Noted Allergy Reaction CYMBALTA (DULOXETINE) 03/06/2013 14 - Other: See Comments Comments: Personal preference not to use PENICILLINS 09/09/2006 2 - Rash PROZAC (FLUOXETINE HCL) 03/06/2013 1 - Mental Status Change Comments: [place] hyper and anxious WELLBUTRIN (BUPROPION HCL) 03/06/2013 1 - Mental Status Change Comments: Very anxious and hyper feeling Date Reviewed: 07/12/2022 Reviewed by: Eliz Fournier APRN.METAL DRILLING MACHINE OPERATOR - Fully Assessed Reason for Visit: Transition Of Care [4074] Prescriptions as of 09/23/2023 - sertraline (ZOLOFT) 100 mg tablet Take 100 mg by mouth once daily. - lamoTRIgine (LAMICTAL) 150 mg tablet Take 150 mg by mouth once daily. Problem List As Of Date 09/22/2023 Noted Resolved DEPRESSIVE DISORDER NEC [F32.89] 12/13/2006 TOBACCO USE DISORDER [F17.200] 10/28/2008 Mixed hyperlipidemia [E78.2] 11/16/2010 Fracture of fibula, distal, closed [S82.839A] 12/02/2010 12/30/2014 Thyroid nodule [E04.1] 01/20/2012 Special screening for malignant neoplasms, colo*04/04/2012 12/30/2014 Benign neoplasm of colon [D12.6] 04/04/2012 Hemorrhage of gastrointestinal tract, unspecifi*04/04/2012 12/30/2014 Internal hemorrhoids without mention of complic*04/04/2012 Encounter Status:Closed by ALEX ESCOBAR on 09/23/23 [facility] 05-04-2023 Miscellaneous Notes Called pt left VM that she is due for Mammogram Keren Martinez MA ----- Message from Ce Martinez MA sent at 11/02/2022 1:17 PM EST ----- repeat mammo and US in 6 months documented in this encounter [facility] 11-02-2022 Miscellaneous Notes Patient is informed Ce Martinez MA ----- Message from Clare Schneider DO sent at 11/02/2022 12:50 PM EST ----- Please call pt - breast studies show that the findings are most likely benign and repeat mammo and US in 6 months are recommended Clare Schneider DO documented in this encounter [facility] 11-02-2022 Note HNO ID: [id number] Author: Zeinab Mcdonald RDMS Service: ? Author Type: Validation Engineer Type: Progress Notes Filed: 11/02/2022 11:46 AM Note Text: Radiology Service Progress Note PATIENT NAME: Kassidy Vyas DATE OF SERVICE: November 02, 2022 TIME: 11:46 AM PATIENT IDENTITY VERIFICATION COMPLETED USING TWO (2) IDENTIFIERS: Name and Date of confirmed by patient verbally. FALL SCREENING: Has the patient had 2 falls in the last year or 1 fall with injury or currently using an Ambulatory Assistive Device (Walker, Cane, Wheelchair, Crutches, etc.)? No PATIENT GENDER DATA: Female. status: : No status: NO. PATIENT RELEVANT IMPLANT DATA REVIEWED: Not Applicable RADIOLOGY DEPARTMENT: Ultrasound PERIPHERAL IV DATA: Not applicable SIGNED BY: Zeinab Mcdonald RDMS T November 02, 2022 11:46 AM [facility] 11-02-2022 History of Presen t illness Narrative Radiology Service Progress Note PATIENT NAME: Kassidy Vyas DATE OF SERVICE: November 02, 2022 TIME: 11:46 AM PATIENT IDENTITY VERIFICATION COMPLETED USING TWO (2) IDENTIFIERS: Name and Date of confirmed by patient verbally. FALL SCREENING: Has the patient had 2 falls in the last year or 1 fall with injury or currently using an Ambulatory Assistive Device (Walker, Cane, Wheelchair, Crutches, etc.)? No PATIENT GENDER DATA: Female. status: : No status: NO. PATIENT RELEVANT IMPLANT DATA REVIEWED: Not Applicable RADIOLOGY DEPARTMENT: Ultrasound PERIPHERAL IV DATA: Not applicable SIGNED BY: Zeinab Mcdonald RDMS [facility] November 02, 2022 11:46 AM documented in this encounter [facility] 10-19-2022 Note HNO ID: [id number] Author: RT Arline(Brittany) Service: ? Author Type: Technologist Type: Progress Notes Filed: 10/19/2022 2:29 PM Note Text: Radiology Service Progress Note PATIENT NAME: Kassidy Vyas DATE OF SERVICE: October 19, 2022 TIME: 2:29 PM PATIENT IDENTITY VERIFICATION COMPLETED USING TWO (2) IDENTIFIERS: Name and Date of confirmed by patient verbally. FALL SCREENING: Has the patient had 2 falls in the last year or 1 fall with injury or currently using an Ambulatory Assistive Device (Walker, Cane, Wheelchair, Crutches, etc.)? No PATIENT GENDER DATA: Female. status: : No status: NO. PATIENT RELEVANT IMPLANT DATA REVIEWED: Not Applicable RADIOLOGY DEPARTMENT: Mammography PERIPHERAL IV DATA: Not applicable SIGNED BY: RT Arline(R) October 19, 2022 2:29 PM [facility] 10-19-2022 Miscellaneous Notes October 19, 2022 PID: [id number] Kassidy Vyas [address] [place] [address] Dear Ms. Vyas, Your recent breast imaging exam on 10/19/2022 showed a possible finding that requires additional imaging studies for a complete evaluation. Most such findings are probably benign (not cancer). If you have a healthcare provider who ordered/prescribed your screening mammogram: Please call [phone] or [phone]: [phone] to schedule an appointment for your additional imaging (if you have not already done so). If you DO NOT have a healthcare provider (ie you did not have an order/prescription for your screening mammogram): Please call to schedule an appointment for your additional imaging (if you have not already done so). You must have an order/prescription from your physician when calling to schedule your appointment. If your order/prescription is not electronic, you must bring the hard copy with you on the day of your exam to avoid delays. Your imaging studies and reports are kept on file at [facility] as part of your permanent medical record, and are available for your continuing care. Thank you for allowing us to help in meeting your health care needs. Sincerely, Dr. Rivera Interpreting Radiologist [facility] (Additional imaging) documented in this encounter [facility] 10-19-2022 History of Presen t illness Narrative Radiology Service Progress Note PATIENT NAME: Kassidy Vyas DATE OF SERVICE: October 19, 2022 TIME: 2:29 PM PATIENT IDENTITY VERIFICATION COMPLETED USING TWO (2) IDENTIFIERS: Name and Date of confirmed by patient verbally. FALL SCREENING: Has the patient had 2 falls in the last year or 1 fall with injury or currently using an Ambulatory Assistive Device (Walker, Cane, Wheelchair, Crutches, etc.)? No PATIENT GENDER DATA: Female. status: : No status: NO. PATIENT RELEVANT IMPLANT DATA REVIEWED: Not Applicable RADIOLOGY DEPARTMENT: Mammography PERIPHERAL IV DATA: Not applicable SIGNED BY: RT Arline(R) October 19, 2022 2:29 PM documented in this encounter [facility] 08-05-2022 Miscellaneous Notes Called pt let her know she needs her lab work done Keren Martinez MA Inquire if she started taking her vit D? I would like her to be on the vit d for at least 4 wks prior to rechecking the calcium. ----- Message from Keren Martinez MA sent at 07/14/2022 5:20 PM EDT ----- CMP calcium elevated, recheck calcium in 3 wks. Keren Martinez MA documented in this encounter [facility] 07-14-2022 Miscellaneous Notes Called pt let her know the results and she will try Statin Reminder placed for pt to get calcium checked Keren Martinez MA ----- Message from Eliz Fournier APRN.METAL DRILLING MACHINE OPERATOR sent at 07/13/2022 4:20 PM EDT ----- Vit d is low. Recommend her take daily vit D 1000 international unit(s) Called pt left VM with for her to call the office back for results Keren Martinez MA ----- Message from Eliz Fournier APRN.METAL DRILLING MACHINE OPERATOR sent at 07/13/2022 12:26 PM EDT ----- Hep c and HIV negagive ----- Message from Eliz Fournier APRN.METAL DRILLING MACHINE OPERATOR sent at 07/12/2022 5:30 PM EDT ----- Lipids TC, Trig, LDL are all very elevated. She needs to start on a statin. To lower her numbers and her risk of heart attack and stroke. Is she okay with this? MCP calcium elevated, I believe she stated she drinks lots of milk. I recommend she cut back on milk intake and recheck calcium in 3 wks. Tsh wnl CBC unremarkable documented in this encounter [facility] documented as of this encounter (statuses as of 07/14/2022) [facility]06[facility] History of Past illness Narrative* Problem Noted Date Resolved Date Special screening for malignant neoplasms, colon 04/04/2012 12/30/2014 Hemorrhage of gastrointestinal tract, unspecifie d 04/04/2012 12/30/2014 Fracture of fibula, distal, closed 12/02/2010 12/30/2014 documented as of this encounter (statuses as of 08/05/2022) [facility] History of Past illness Narrative* Problem Noted Date Resolved Date Special screening for malignant neoplasms, colon 04/04/2012 12/30/2014 Hemorrhage of gastrointestinal tract, unspecifie d 04/04/2012 12/30/2014 Fracture of fibula, distal, closed 12/02/2010 12/30/2014 documented as of this encounter (statuses as of 10/21/2022) [facility]06[facility] History of Past illness Narrative* Problem Noted Date Resolved Date Special screening for malignant neoplasms, colon 04/04/2012 12/30/2014 Hemorrhage of gastrointestinal tract, unspecifie d 04/04/2012 12/30/2014 Fracture of fibula, distal, closed 12/02/2010 12/30/2014 documented as of this encounter (statuses as of 10/22/2022) [facility] History of Past illness Narrative* Problem Noted Date Resolved Date Special screening for malignant neoplasms, colon 04/04/2012 12/30/2014 Hemorrhage of gastrointestinal tract, unspecifie d 04/04/2012 12/30/2014 Fracture of fibula, distal, closed 12/02/2010 12/30/2014 documented as of this encounter (statuses as of 11/02/2022) [facility] History of Past illness Narrative* Problem Noted Date Diagnosed Date Resolved Date Special screening for malign ant neoplasms, colon 04/04/2012 12/30/2014 Hemorrhage of gastrointestin al tract, unspecified 04/04/2012 12/30/2014 Fracture of fibula, distal, closed 12/02/2010 12/30/2014 documented as of this encounter (statuses as of 05/04/2023) [facility] History of Past illness Narrative* Problem Noted Date Diagnosed Date Resolved Date Special screening for malign ant neoplasms, colon 04/04/2012 12/30/2014 Hemorrhage of gastrointestin al tract, unspecified 04/04/2012 12/30/2014 Fracture of fibula, distal, closed 12/02/2010 12/30/2014 documented as of this encounter (statuses as of 08/21/2023) [facility] History of Past illness Narrative* Problem Noted Date Diagnosed Date Resolved Date Special screening for malign ant neoplasms, colon 04/04/2012 12/30/2014 Hemorrhage of gastrointestin al tract, unspecified 04/04/2012 12/30/2014 Fracture of fibula, distal, closed 12/02/2010 12/30/2014 documented as of this encounter (statuses as of 08/21/2023) [facility]- [facility]- Primary Ab[facility], unspecified [facility] Abnormal [facility]ogram Abnormal mammogram, unspecified [facility] Diagnosis Encounter for screening mammogram for malignant neoplasm of breast Other screening mammogram documented in this encounter [facility] for referral (narrative)* Diagnostic Procedure Only (Routine) - Pending Review Specialty Diagnoses / Procedures Referred By Mike t Referred To Contact [facility] Diagnoses Abnormal mammogram Procedures US BREAST LTD LEFT US BREAST UNI REAL TIME WITH IMAGE LIMITED Eliz Fournier APRN.METAL DRILLING MACHINE OPERATOR [address] [place] [address] [facility] [address] [place] [address] Referral ID Status Reason Start Date Expiration Date Visits Requested Visits Authorized [id number] Pending Review Auto-Generat ed Referral 05/03/2023 06/01/2024 1 1 * Diagnostic Procedure Only (Routine) - Pending Review Specialty Diagnoses / Procedures Referred By Contac t Referred To Contact [facility] Diagnoses Abnormal mammogram Procedures US BREAST LTD RIGHT US BREAST UNI REAL TIME WITH IMAGE LIMITED Eliz Fournier APRN.METAL DRILLING MACHINE OPERATOR [address] [place] [address] [facility] [address] [place] [address] Referral ID Status Reason Start Date Expiration Date Visits Requested Visits Authorized [id number] Pending Review Auto-Generat ed Referral 05/03/2023 06/01/2024 1 1 * Diagnostic Procedure Only (Routine) - Pending Review Specialty Diagnoses / Procedures Referred By Contac t Referred To Contact [facility] Diagnoses Abnormal mammogram Procedures LIA DIAGNOSTIC BILATERAL DIAGNOSTIC MAMMOGRAPHY COMPUTER-AIDED DETCJ BI Eliz Fournier APRN.METAL DRILLING MACHINE OPERATOR [address] [place] [address] [facility] [address] [place] [address] Referral ID Status Reason Start Date Expiration Date Visits Requested Visits Authorized [id number] Pending Review Auto-Generat ed Referral 05/03/2023 06/01/2024 1 1 [facility] for referral (narrative)* Diagnostic Procedure Only (Routine) - Closed Specialty Diagnoses / Procedures Referred By Contac t Referred To Contact [facility] Diagnoses Abnormal mammogram Procedures US BREAST LTD RT US BREAST UNI REAL TIME WITH IMAGE LIMITED Sheets, Clare C, DO [address] [place] [address] [facility] [address] [place] [address] Referral ID Status Reason Start Date Expiration Date V isits Requested Visits Authorized [id number] Closed Auto-Generate d Referral 10/19/2022 11/18/2023 1 1 * Diagnostic Procedure Only (Routine) - Closed Specialty Diagnoses / Procedures Referred By Contac t Referred To Contact [facility] Diagnoses Abnormal mammogram Procedures US BREAST LTD LT US BREAST UNI REAL TIME WITH IMAGE LIMITED Sheets, Clare C, DO [address] [place] [address] [facility] [address] [place] [address] Referral ID Status Reason Start Date Expiration Date V isits Requested Visits Authorized [id number] Closed Auto-Generate d Referral 10/19/2022 11/18/2023 1 1 [facility] for referral (narrative)* Diagnostic Procedure Only (Routine) - Closed Specialty Diagnoses / Procedures Referred By Contac t Referred To Contact [facility] Diagnoses Encounter for screening mammogram for malignant neoplasm of breast Procedures LIA SCREENING SCREENING MAMMOGRAPHY BI 2-VIEW BREAST INC CAD Yg, Eliz Gonzalez, INSTRUCTOR OF NURSING.METAL DRILLING MACHINE OPERATOR [address] [place] [address] [facility] [address] [place] [address] Referral ID Status Reason Start Date Expiration Date V isits Requested Visits Authorized [id number] Closed Auto-Generate d Referral 07/12/2022 08/11/2023 1 1 Electronically signed by Eliz Fournier INSTRUCTOR OF NURSING.METAL DRILLING MACHINE OPERATOR at 10/19/2022 2:28 PM EST [facility] for visit Narrative* Diagnostic Procedure Only (Routine) - Closed Specialty Diagnoses / Procedures Referred By Contac t Referred To Contact [facility] Diagnoses Encounter for screening mammogram for malignant neoplasm of breast Procedures LIA SCREENING SCREENING MAMMOGRAPHY BI 2-VIEW BREAST INC CAD Eliz Fournier, INSTRUCTOR OF NURSING.METAL DRILLING MACHINE OPERATOR [address] [place] [address] [facility] [address] [place] [address] Referral ID Status Reason Start Date Expiration Date V isits Requested Visits Authorized [id number] Closed Auto-Generate d Referral 07/12/2022 08/11/2023 1 1 [facility] Summary Purpose Family History No Family History Records FoundNo Family History Records FoundNo Family History Records Found Advance Directives No Advanced Directives Records FoundNo Advanced Directives Records FoundNo Advanced Directives Records Found Additional Source Comments INFORMATION SOURCE (unrecogn ized section and content) DATE CREATED AUTHOR AUTHOR'S ORGANIZ ATION 11/03/2022 [facility] DATE CREATED AUTHOR AUTHOR'S ORGANIZ ATION 10/13/2023 [facility] Source Comments (unrecognize d section and content) In the event this informatio n is protected by the Federal Confidentiality of Alcohol and Drug Abuse Patient Records regulations: The Federal rules restrict any use of the information to criminally investigate or prosecute any alcohol or drug abuse patient.[facility] the event this information is protected by the Federal Confidentiality of Alcohol and Drug Abuse Patient Records regulations: The Federal rules restrict any use of the information to criminally investigate or prosecute any alcohol or drug abuse patient.[facility] the event this information is protected by the Federal Confidentiality of Alcohol and Drug Abuse Patient Records regulations: The Federal rules restrict any use of the information to criminally investigate or prosecute any alcohol or drug abuse patient.[facility] the event this information is protected by the Federal Confidentiality of Alcohol and Drug Abuse Patient Records regulations: The Federal rules restrict any use of the information to criminally investigate or prosecute any alcohol or drug abuse patient.[facility] the event this information is protected by the Federal Confidentiality of Alcohol and Drug Abuse Patient Records regulations: The Federal rules restrict any use of the information to criminally investigate or prosecute any alcohol or drug abuse patient.[facility] the event this information is protected by the Federal Confidentiality of Alcohol and Drug Abuse Patient Records regulations: The Federal rules restrict any use of the information to criminally investigate or prosecute any alcohol or drug abuse patient.[facility] the event this information is protected by the Federal Confidentiality of Alcohol and Drug Abuse Patient Records regulations: The Federal rules restrict any use of the information to criminally investigate or prosecute any alcohol or drug abuse patient.[facility] the event this information is protected by the Federal Confidentiality of Alcohol and Drug Abuse Patient Records regulations: The Federal rules restrict any use of the information to criminally investigate or prosecute any alcohol or drug abuse patient.[facility] Reason for Visit (unrecogniz ed section and content) Reason Comments Orders Reason Comments Mammogram Result Call Back Reason Comments Orders Reason Comments Radiology US Specialty Diagnoses / Procedures Referred By Mike t Referred To Contact [facility] Diagnoses Abnormal mammogram Procedures US BREAST LTD RT US BREAST UNI REAL TIME WITH IMAGE LIMITED Sheets, Clare Hardy DO [address] [place] [address] [facility] [address] [place] [address] Referral ID Status Reason Start Date Expiration Date V isits Requested Visits Authorized [id number] Closed Auto-Generate d Referral 10/19/2022 11/18/2023 1 1 Care Teams (unrecognized sec tion and content) Director Of Corporate Sponsorships Relationship Specialty Start Date End Date Eliz Fournier INSTRUCTOR OF NURSING.METAL DRILLING MACHINE OPERATOR [address] [place] [address] PCP - General Internal Medicine 07/12/22 Director Of Corporate Sponsorships Relationship Specialty Start Date End Date Eliz Fournier, INSTRUCTOR OF NURSING.METAL DRILLING MACHINE OPERATOR [address] [place] [address] PCP - General Internal Medicine 07/12/22 Director Of Corporate Sponsorships Relationship Specialty Start Date End Date Eliz Fournier, INSTRUCTOR OF NURSING.METAL DRILLING MACHINE OPERATOR [address] [place] [address] PCP - General Internal Medicine 07/12/22 Director Of Corporate Sponsorships Relationship Specialty Start Date End Date Eliz Fournier, INSTRUCTOR OF NURSING.METAL DRILLING MACHINE OPERATOR [address] [place] [address] PCP - General Internal Medicine 07/12/22 Director Of Corporate Sponsorships Relationship Specialty Start Date End Date Eliz Fournier, INSTRUCTOR OF NURSING.METAL DRILLING MACHINE OPERATOR [address] [place] [address] PCP - General Internal Medicine 07/12/22 Director Of Corporate Sponsorships Relationship Specialty Start Date End Date Eliz Fournier, INSTRUCTOR OF NURSING.METAL DRILLING MACHINE OPERATOR [address] [place] [address] PCP - General Internal Medicine 07/12/22 FOR RECORDS PERTAINING TO PATIENTS WHO ARE OR HAVE BEEN ENROLLED IN A CHEMICAL DEPENDENCY/SUBSTANCEABUSE PROGRAM, SOME INFORMATION MAY BE OMITTED. This clinical summary was aggregated from multiple sources. Caution should be exercised in using it in the provision of clinical care. This summary normalizes information from multiple sources, and as a consequence, information in this document may materially change the coding, format and clinical context of patient data. In addition, data may be omitted in some cases. CLINICAL DECISIONS SHOULD BE BASED ON THE PRIMARY CLINICAL RECORDS. [employer] [facility] provides no warranty or guarantee of the accuracy or completeness of information in this document.
== END | disposition home or self-care (01) ==
LOC: CT 15:38
PROVIDERS: PCP Family Medicine; Referring Provider Surgery; Visit Provider Surgery
DX: K57.80 Diverticulitis of intestine, part unspecified, with perforation and abscess without bleeding (principal)
CPT/HCPCS: 74177; Q9967

== ENCOUNTER → 2023-11-07 | Outpatient (CLI) | payer BC, SELFPAY ==
--- OUTSIDE RECORDS SUMMARY | 2023-11-07 13:51 | XMS RPT_ITS | CCD ---
Author Name Unknown Address [address] [place] [address] Organization [facility] Care Team Providers Care Concrete Mixing Truck Driver Name Role Phone Yg COAL CRUSHER OPERATOR.Eliz WARD Primary Care Provider ELIZ FOURNIER Referring Unavailable ELIZ FOURNIER Primary Care Unavailable SHEETSCLARE Referring Unavailable ELIZ FOURNIER Primary Care Unavailable SHEETSCLARE C Referring Unavailable ELIZ FOURNIER Primary Care Unavailable Yg COAL CRUSHER OPERATOR.Eliz WARD Primary Care Provider Allergies Allergy Classification Reported Allergen(s) Allergy Type Date of Onset Reaction(s) Facility (9 sources) buPROPion; Translations: [BUPROPION HCL] Drug Allergy 3 Mental Status Change [facility] Work Phone: (9 sources) DULoxetine; Translations: [DULOXETINE] Drug Allergy 3 Other: See Comments [facility] Work Phone: (9 sources) FLUoxetine; Translations: [FLUOXETINE HCL] Drug Allergy 3 Mental Status Change [facility] Work Phone: (9 sources) Penicillins; Translations: [PENICILLINS] Propensity to adverse reactions 1124-200 6 Rash [facility] Work Phone: Medications Completed/Discontinued Medications Medication [...] Telephone encounter Eliz Fournier APRN.CNP Work Phone: [facility] Procedures Date Procedure Procedure Detail Performing Clinician Start: 11-02-2022 Us breast uni real t isaiah with image limited Clare C Sheets DO Work Phone: Start: 11-02-2022 Mammography Clare S heets DO Work Phone: Start: 10-19-2022 End: 10-19-2022 Mammography Eliz Fournier APRN.CNP Work Phone: Start: 07-12-2022 Lipid 1996 panel - S marina or Plasma Us 1 Work Phone: Start: 05-13-2016 Mammography Eliz poole COAL CRUSHER OPERATOR.ED Work Phone: Start: 04-04-2012 Colonoscopy Eliz poole COAL CRUSHER OPERATOR.SUPERVISOR ROLLING ROOM Work Phone: Plan of Treatment Date Care Activity Detail Author Start: 07-12-2027 Lipid 1996 panel - S marina or Plasma Lipid Screening [facility] Start: 07-12-2027 LIPID SCREEN LIPID SCREEN [facility] Start: 07-12-2025 DIABETES SCREEN DIABETES SCREEN [facility] Start: 07-12-2025 Diabetes Screening Diabetes Screenin g [facility] Start: 11-02-2023 Mammography [facility] Start: 10-19-2023 Mammography MAMMOGRAM [facility] Start: 07-12-2023 COVID-19 VACCINE (3 - Booster for Pfizer series) COVID-19 VACCINE (3 - Booster for Pfizer series) [facility] Immunizations Immunization Date Immunization Notes Care Provider Fa juliannety 07-12-2022 influenza, injectabl e, quadrivalent, contains preservative Eliz Yg COAL CRUSHER OPERATOR.SUPERVISOR ROLLING ROOM Work Phone: [facility] 07-12-2022 influenza virus vaccine, unspecified formulation [facility] Work Phone: [facility] 08-05-2020 Influenza, injectabl e, Madin [place] Canine Kidney, preservative free, quadrivalent Eliz Yg COAL CRUSHER OPERATOR.SUPERVISOR ROLLING ROOM Work Phone: [facility] 11-24-2006 tetanus toxoid, redu judi diphtheria toxoid, and acellular pertussis vaccine, adsorbed Eliz Yg COAL CRUSHER OPERATOR.[facility] Work Phone: [facility] Work Phone: Payers Date Payer Category Payer Unknown [employer] PPO OOS [id number] 2011-Present [phone] [address] [place] [address] PPO [id number] 2011 Unknown [id number] Social History Date Type Detail Facility Start: 05-17-2011 Tobacco smoking stat us NHIS Smokes tobacco daily [facility] History of tobacco use Cigarette Smoker [facility] Start: 05-17-2011 End: 09-24-2020 Cigarettes smoked current (pack per day) - Reported 1.5 [facility] Start: 05-17-2011 Tobacco use and exposure Smoke less tobacco non-user [facility] Start: 07-12-2022 Alcohol intake Current drinke r of alcohol (finding) [facility] Start: 05-17-2011 Tobacco Comment Started claudia henderson at age 16. [facility] Start: 1965 Sex Assigned At Not on file [facility] Start: 07-02-2022 End: 07-12-2022 Exposure to SARS-CoV-2 (event) Not sure [facility] Start: 09-24-2020 End: 07-12-2022 Tobacco use panel [facility] PHQ2 Score 0 [facility] Clinical Notes 04-04-2012 to 10-11-2023 Telephone Encounter - Keren Martinez MA - 05/04/2023 8:13 AM EDTTelephone Encounter - Keren Martinez MA - 05/02/2023 8:11 AM EDTTelephone Encounter - Ce Martinez MA - 11/02/2022 1:17 PM EST Note Date & Type Note Facility 10-11-2023 Note HNO ID: [id number] Author: Callie Barrett LPN Service: ? Author Type: LICENSED NURSE Type: Progress Notes Filed: 10/11/2023 12:46 PM Note Text: TRANSITIONAL CARE MANAGEMENT (TCM) COMMUNITY MONITORING PROGRAM - [facility] Provider Action/FYI: SUMMARY: Pt discharged from [facility] on 10/09/2023. Admitted for: Subacute sigmoid diverticulitis with intramural abscess Risk score: unknown Patient seen Inpatient [facility] Visit? N/A. Patient seen [facility]ARE Program? N/A. Contact made with patient: No - next outreach attempt will be on next day Outreach ended [facility] 10-11-2023 Note Patient Outreach (AG INTMLW) KASSIDY VYAS ([id number]) 1965 F Date Time Provider Department 10/11/23 CALLIE BARRETT AGTOSINMLJorge During your visit today, we recorded the following information about you: Callie Barrett LPN 10/11/2023 12:46 PM Signed TRANSITIONAL CARE MANAGEMENT (TCM) COMMUNITY MONITORING PROGRAM - [facility] Provider Action/FYI: SUMMARY: Pt discharged from [facility] on 10/09/2023. Admitted for: Subacute sigmoid diverticulitis [...] 03/06/2013 1 - Mental Status Change Comments: Cascade hyper and anxious WELLBUTRIN (BUPROPION HCL) 03/06/2013 1 - Mental Status Change Comments: Very anxious and hyper feeling Date Reviewed: 07/12/2022 Reviewed by: Eliz Fournier APRN.SUPERVISOR ROLLING ROOM - Fully Assessed Reason for Visit: Transition Of Care [4074] Cmt: [facility] discharge 10/09/2023 TCM encounter Prescriptions as [...] Encounter Status:Closed by CALLIE BARRETT on 10/11/23 [facility] 10-07-2023 Note HNO ID: [id number] Author: Laura Prather MA Service: ? Author Type: Commercial Pilot Type: Progress Notes Filed: 10/07/2023 3:17 PM Note Text: ED Follow Up: Patient discharged from [facility] ED on 10/03/2023. 1. How are you feeling since your ED visit? Admitted to [facility] Have your symptoms improved or resolved? In [...] you able to contact the office or warehouse insulation worker provider prior to your ED visit? Not applicable 5. Is there anything else I can do for you today? Not applicable Patient has been admitted and in hospital she will call us as soon as she gets out to make TCM apt. Laura Prather MA [facility] 10-07-2023 Note Patient Outreach (AG FAMPLE) KASSIDY VYAS ([id number]) 1965 F Date Time Provider Department 10/07/23 LAURA PRATHER During your visit today, we recorded the following information about you: Laura Prather MA 10/07/2023 3:17 PM Signed ED Follow Up: Patient discharged from [facility] ED on 10/03/2023. 1. How are you feeling since your ED visit? Admitted to [facility] Have your symptoms improved or resolved? In [...] you able to contact the office or warehouse insulation worker provider prior to your ED visit? Not [...] 03/06/2013 1 - Mental Status Change Comments: Cascade hyper and anxious WELLBUTRIN (BUPROPION HCL) 03/06/2013 1 - Mental Status Change Comments: Very anxious and hyper feeling Date Reviewed: 07/12/2022 Reviewed by: Eliz Fournier APRN.SUPERVISOR ROLLING ROOM - Fully Assessed Reason for Visit: ed outreach [Other] Cmt: Ed outreach 10/03/2023 [facility] Prescriptions as of 10/07/2023 - sertraline (ZOLOFT) [...] complic*04/04/2012 Encounter Status:Closed by RUBIAALFONSOMARQUEZLAURA on 10/07/23 [facility] 09-23-2023 Note HNO ID: [id number] Author: Alex Escobar RN Service: ? Author Type: Registered Nurse Type: Progress Notes Filed: 09/23/2023 3:46 PM Note Text: TRANSITIONAL CARE MANAGEMENT (TCM) COMMUNITY MONITORING PROGRAM - [facility] Provider Action/FYI: SUMMARY: Pt discharged from [facility] on 09/21/23. Admitted for: Diverticulitis of large intestine with perforation and abscess without bleeding Contact made with patient: No - 2nd unsuccessful attempt - end outreach and close encounter Outreach ended [facility] 09-22-2023 Note HNO ID: [id number] Author: Alex Escobar RN Service: ? Author Type: Registered Nurse Type: Progress Notes Filed: 09/23/2023 3:46 PM Note Text: TRANSITIONAL CARE MANAGEMENT (TCM) COMMUNITY MONITORING PROGRAM - [facility] Provider Action/FYI: SUMMARY: Pt discharged from [facility] on 09/21/23. Admitted for: Diverticulitis of large intestine with perforation and abscess without bleeding Patient seen Inpatient [facility] Visit? No. Patient seen [facility] Program? No. Contact made with patient: No - next outreach attempt will be on next day Outreach ended [facility] 09-22-2023 Note Patient Outreach ( AC) KASSIDY VYAS ([id number]) 1965 F Date Time Provider Department 09/22/23 ALEX ESCOBAR [facility] During your visit today, we recorded the following information about you: Alex Escobar RN 09/23/2023 3:46 PM Signed TRANSITIONAL CARE MANAGEMENT (TCM) COMMUNITY MONITORING PROGRAM - [facility] Provider Action/FYI: SUMMARY: Pt discharged from [facility] on 09/21/23. Admitted for: Diverticulitis of large intestine with perforation and abscess without bleeding Patient seen Inpatient [facility] Visit? No. Patient seen [facility] Program? No. Contact made with patient: No - next outreach attempt will be on next day Outreach ended Alex Escobar RN 09/23/2023 3:46 PM Signed TRANSITIONAL CARE MANAGEMENT ([facility]) COMMUNITY MONITORING PROGRAM - [facility] Provider Action/FYI: SUMMARY: Pt discharged from [facility] on 09/21/23. Admitted for: Diverticulitis of large [...] 03/06/2013 1 - Mental Status Change Comments: Cascade hyper and anxious WELLBUTRIN (BUPROPION HCL) 03/06/2013 1 - Mental Status Change Comments: Very anxious and hyper feeling Date Reviewed: 07/12/2022 Reviewed by: Eliz Fournier APRN.SUPERVISOR ROLLING ROOM - Fully Assessed Reason for Visit: Transition [...] Encounter Status:Closed by ALEX ESCOBAR on 09/23/23 [facility] 05-04-2023 Miscellaneous Notes Called pt left VM that she is due for Mammogram Keren Martinez MA ----- Message from Ce Martinez MA sent at 11/02/2022 1:17 PM EST ----- repeat mammo and US in 6 months documented in this encounter [facility] 11-02-2022 Miscellaneous Notes Patient is informed Ce Martinez MA ----- Message from Clare Schneider DO sent at 11/02/2022 12:50 PM EST ----- Please call pt - breast studies show that the findings are most likely benign and repeat mammo and US in 6 months are recommended Clare Schneider DO documented in this encounter [facility] 11-02-2022 Note HNO ID: [id number] Author: Zeinab Mcdonald RDMS Service: ? Author Type: Asphalt Smoother Type: Progress Notes Filed: 11/02/2022 11:46 AM [...] RDMS T November 02, 2022 11:46 AM [facility] 11-02-2022 History of Presen t [...] Not applicable SIGNED BY: Zeinab Mcdonald RDMS [facility] November 02, 2022 11:46 AM documented in this encounter [facility] 10-19-2022 Note HNO ID: [id number] Author: RT Arline(Brittany) Service: ? Author Type: [...] RT Arline(R) October 19, 2022 2:29 PM [facility] 10-19-2022 Miscellaneous Notes October 19, 2022 PID: [id number] Kassidy Vyas [address] [place] [address] Dear Ms. Vyas, Your recent breast imaging exam on 10/19/2022 showed a possible finding that requires additional imaging studies for a complete evaluation. Most such findings are probably benign (not cancer). If you have a healthcare provider who ordered/prescribed your screening mammogram: Please call [phone] or [phone]: [phone] to schedule an appointment for your additional [...] and reports are kept on file at [facility] as part of your permanent medical record, and are available for your continuing care. Thank you for allowing us to help in meeting your health care needs. Sincerely, Dr. Rivera Interpreting Radiologist [facility] (Additional imaging) documented in this encounter [facility] 10-19-2022 History of Presen t illness [...] 2022 2:29 PM documented in this encounter [facility] 08-05-2022 Miscellaneous Notes Called pt let [...] Keren Martinez MA documented in this encounter [facility] 07-14-2022 Miscellaneous Notes Called pt let her know the results and she will try Statin Reminder placed for pt to get calcium checked Keren Martinez MA ----- Message from Eliz Fournier APRN.SUPERVISOR ROLLING ROOM sent at 07/13/2022 4:20 PM EDT ----- Vit d is low. Recommend her take daily vit D 1000 international unit(s) Called pt left VM with for her to call the office back for results Keren Martinez MA ----- Message from Eliz Fournier APRN.SUPERVISOR ROLLING ROOM sent at 07/13/2022 12:26 PM EDT ----- Hep c and HIV negagive ----- Message from Eliz Fournier APRN.SUPERVISOR ROLLING ROOM sent at 07/12/2022 5:30 PM EDT ----- [...] wnl CBC unremarkable documented in this encounter [facility] documented as of this encounter (statuses as of 07/14/2022) [facility] History of Past illness Narrative* Problem Noted Date Resolved Date Special screening for malignant neoplasms, colon 04/04/2012 12/30/2014 Hemorrhage of gastrointestinal tract, unspecifie d 04/04/2012 12/30/2014 Fracture of fibula, distal, closed 12/02/2010 12/30/2014 documented as of this encounter (statuses as of 08/05/2022) [facility] History of Past illness Narrative* Problem Noted Date Resolved Date Special screening for malignant neoplasms, colon 04/04/2012 12/30/2014 Hemorrhage of gastrointestinal tract, unspecifie d 04/04/2012 12/30/2014 Fracture of fibula, distal, closed 12/02/2010 12/30/2014 documented as of this encounter (statuses as of 10/21/2022) [facility] History of Past illness Narrative* Problem Noted Date Resolved Date Special screening for malignant neoplasms, colon 04/04/2012 12/30/2014 Hemorrhage of gastrointestinal tract, unspecifie d 04/04/2012 12/30/2014 Fracture of fibula, distal, closed 12/02/2010 12/30/2014 documented as of this encounter (statuses as of 10/22/2022) [facility] History of Past illness Narrative* Problem Noted Date Resolved Date Special screening for malignant neoplasms, colon 04/04/2012 12/30/2014 Hemorrhage of gastrointestinal tract, unspecifie d 04/04/2012 12/30/2014 Fracture of fibula, distal, closed 12/02/2010 12/30/2014 documented as of this encounter (statuses as of 11/02/2022) [facility] History of Past illness Narrative* Problem Noted Date Diagnosed Date Resolved Date Special screening for malign ant neoplasms, colon 04/04/2012 12/30/2014 Hemorrhage of gastrointestin al tract, unspecified 04/04/2012 12/30/2014 Fracture of fibula, distal, closed 12/02/2010 12/30/2014 documented as of this encounter (statuses as of 05/04/2023) [facility] History of Past illness Narrative* Problem Noted Date Diagnosed Date Resolved Date Special screening for malign ant neoplasms, colon 04/04/2012 12/30/2014 Hemorrhage of gastrointestin al tract, unspecified 04/04/2012 12/30/2014 Fracture of fibula, distal, closed 12/02/2010 12/30/2014 documented as of this encounter (statuses as of 08/21/2023) [facility] History of Past illness Narrative* Problem Noted Date Diagnosed Date Resolved Date Special screening for malign ant neoplasms, colon 04/04/2012 12/30/2014 Hemorrhage of gastrointestin al tract, unspecified 04/04/2012 12/30/2014 Fracture of fibula, distal, closed 12/02/2010 12/30/2014 documented as of this encounter (statuses as of 08/21/2023) [facility]- [facility]- Primary Ab[facility], unspecified [facility] Abnormal [facility]ogram Abnormal mammogram, unspecified [facility] Diagnosis Encounter for screening mammogram for malignant neoplasm of breast Other screening mammogram documented in this encounter [facility] for referral (narrative)* Diagnostic Procedure Only (Routine) - Pending Review Specialty Diagnoses / Procedures Referred By Mike t Referred To Contact [facility] Diagnoses Abnormal mammogram Procedures US BREAST LTD LEFT US BREAST UNI REAL TIME WITH IMAGE LIMITED Eliz Fournier APRN.SUPERVISOR ROLLING ROOM [address] [place] [address] [facility] [address] [place] [address] Referral ID Status Reason Start Date Expiration Date Visits Requested Visits Authorized [id number] Pending Review Auto-Generat ed Referral 05/03/2023 06/01/2024 1 1 * Diagnostic Procedure Only (Routine) - Pending Review Specialty Diagnoses / Procedures Referred By Contac t Referred To Contact [facility] Diagnoses Abnormal mammogram Procedures US BREAST LTD RIGHT US BREAST UNI REAL TIME WITH IMAGE LIMITED Eliz Fournier APRN.SUPERVISOR ROLLING ROOM [address] [place] [address] [facility] [address] [place] [address] Referral ID Status Reason Start Date Expiration Date Visits Requested Visits Authorized [id number] Pending Review Auto-Generat ed Referral 05/03/2023 06/01/2024 1 1 * Diagnostic Procedure Only (Routine) - Pending Review Specialty Diagnoses / Procedures Referred By Contac t Referred To Contact [facility] Diagnoses Abnormal mammogram Procedures LIA DIAGNOSTIC BILATERAL DIAGNOSTIC MAMMOGRAPHY COMPUTER-AIDED DETCJ BI Eliz Fournier APRN.SUPERVISOR ROLLING ROOM [address] [place] [address] [facility] [address] [place] [address] Referral ID Status Reason Start Date Expiration Date Visits Requested Visits Authorized [id number] Pending Review Auto-Generat ed Referral 05/03/2023 06/01/2024 1 1 [facility] for referral (narrative)* Diagnostic Procedure Only (Routine) - Closed Specialty Diagnoses / Procedures Referred By Contac t Referred To Contact [facility] Diagnoses Abnormal mammogram Procedures US BREAST LTD RT US BREAST UNI REAL TIME WITH IMAGE LIMITED Sheets, Clare C, DO [address] [place] [address] [facility] [address] [place] [address] Referral ID Status Reason Start Date Expiration Date V isits Requested Visits Authorized [id number] Closed Auto-Generate d Referral 10/19/2022 11/18/2023 1 1 * Diagnostic Procedure Only (Routine) - Closed Specialty Diagnoses / Procedures Referred By Contac t Referred To Contact [facility] Diagnoses Abnormal mammogram Procedures US BREAST LTD LT US BREAST UNI REAL TIME WITH IMAGE LIMITED Sheets, Clare C, DO [address] [place] [address] [facility] [address] [place] [address] Referral ID Status Reason Start Date Expiration Date V isits Requested Visits Authorized [id number] Closed Auto-Generate d Referral 10/19/2022 11/18/2023 1 1 [facility] for referral (narrative)* Diagnostic Procedure Only (Routine) - Closed Specialty Diagnoses / Procedures Referred By Contac t Referred To Contact [facility] Diagnoses Encounter for screening mammogram for malignant neoplasm of breast Procedures LIA SCREENING SCREENING MAMMOGRAPHY BI 2-VIEW BREAST INC CAD Yg, Eliz Gonzalez, COAL CRUSHER OPERATOR.SUPERVISOR ROLLING ROOM [address] [place] [address] [facility] [address] [place] [address] Referral ID Status Reason Start Date Expiration Date V isits Requested Visits Authorized [id number] Closed Auto-Generate d Referral 07/12/2022 08/11/2023 1 1 [facility] for visit Narrative* Diagnostic Procedure Only (Routine) - Closed Specialty Diagnoses / Procedures Referred By Contac t Referred To Contact [facility] Diagnoses Encounter for screening mammogram for malignant neoplasm of breast Procedures LAI SCREENING SCREENING MAMMOGRAPHY BI 2-VIEW BREAST INC CAD Eliz Fournier, COAL CRUSHER OPERATOR.SUPERVISOR ROLLING ROOM [address] [place] [address] [facility] [address] [place] [address] Referral ID Status Reason Start Date Expiration Date V isits Requested Visits Authorized [id number] Closed Auto-Generate d Referral 07/12/2022 08/11/2023 1 1 [facility] Summary Purpose Family History No Family History Records FoundNo Family History Records FoundNo Family History Records Found Advance Directives No Advanced Directives Records FoundNo Advanced Directives Records FoundNo Advanced Directives Records Found Additional Source Comments INFORMATION SOURCE (unrecogn ized section and content) DATE CREATED AUTHOR AUTHOR'S ORGANIZ ATION 11/03/2022 [facility] DATE CREATED AUTHOR AUTHOR'S ORGANIZ ATION 10/13/2023 [facility] Source Comments (unrecognize d section and content) In the event this informatio n is protected by the Federal Confidentiality of Alcohol and Drug Abuse Patient Records regulations: The Federal rules restrict any use of the information to criminally investigate or prosecute any alcohol or drug abuse patient.[facility] the event this information is protected by the Federal Confidentiality of Alcohol and Drug Abuse Patient Records regulations: The Federal rules restrict any use of the information to criminally investigate or prosecute any alcohol or drug abuse patient.[facility] the event this information is protected by the Federal Confidentiality of Alcohol and Drug Abuse Patient Records regulations: The Federal rules restrict any use of the information to criminally investigate or prosecute any alcohol or drug abuse patient.[facility] the event this information is protected by the Federal Confidentiality of Alcohol and Drug Abuse Patient Records regulations: The Federal rules restrict any use of the information to criminally investigate or prosecute any alcohol or drug abuse patient.[facility] the event this information is protected by the Federal Confidentiality of Alcohol and Drug Abuse Patient Records regulations: The Federal rules restrict any use of the information to criminally investigate or prosecute any alcohol or drug abuse patient.[facility] the event this information is protected by the Federal Confidentiality of Alcohol and Drug Abuse Patient Records regulations: The Federal rules restrict any use of the information to criminally investigate or prosecute any alcohol or drug abuse patient.[facility] the event this information is protected by the Federal Confidentiality of Alcohol and Drug Abuse Patient Records regulations: The Federal rules restrict any use of the information to criminally investigate or prosecute any alcohol or drug abuse patient.[facility] the event this information is protected by the Federal Confidentiality of Alcohol and Drug Abuse Patient Records regulations: The Federal rules restrict any use of the information to criminally investigate or prosecute any alcohol or drug abuse patient.[facility] Reason for Visit (unrecogniz ed section and content) Reason Comments Orders Reason Comments Mammogram Result Call Back Reason Comments Orders Reason Comments Radiology US Specialty Diagnoses / Procedures Referred By Mike t Referred To Contact [facility] Diagnoses Abnormal mammogram Procedures US BREAST LTD RT US BREAST UNI REAL TIME WITH IMAGE LIMITED Sheets, Clare Hardy DO [address] [place] [address] [facility] [address] [address] Referral ID Status Reason Start Date Expiration Date V isits Requested Visits Authorized [id number] Closed Auto-Generate d Referral 10/19/2022 11/18/2023 1 1 Care Teams (unrecognized sec tion and content) Concrete Mixing Truck Driver Relationship Specialty Start Date End Date Eliz Fournier COAL CRUSHER OPERATOR.SUPERVISOR ROLLING ROOM [address] [place] [address] PCP - General Internal Medicine 07/12/22 Concrete Mixing Truck Driver Relationship Specialty Start Date End Date Eliz Fournier, COAL CRUSHER OPERATOR.SUPERVISOR ROLLING ROOM [address] [place] [address] PCP - General Internal Medicine 07/12/22 Concrete Mixing Truck Driver Relationship Specialty Start Date End Date Eliz Fournier, COAL CRUSHER OPERATOR.SUPERVISOR [address] [place] [address] PCP - General Internal Medicine 07/12/22 [employer] Relationship Specialty Start Date End Date Eliz Fournier, COAL CRUSHER OPERATOR.SUPERVISOR [address] [place] [address] PCP - General Internal Medicine 07/12/22 [employer] Relationship Specialty Start Date End Date Eliz Fournier, COAL CRUSHER OPERATOR.SUPERVISOR [address] [place] [address] PCP - General Internal Medicine 07/12/22 [employer] Relationship Specialty Start Date End Date Eliz Fournier, COAL CRUSHER OPERATOR.SUPERVISOR [address] [place] [address] PCP - General Internal Medicine 07/12/22 FOR [...] BE BASED ON THE PRIMARY CLINICAL RECORDS. [facility]. provides no warranty or guarantee of the accuracy or completeness of information in this document.
== END | disposition home or self-care (01) ==
LOC: LAB 13:23
PROVIDERS: PCP Family Medicine; Referring Provider Physician Assistant; Visit Provider Physician Assistant
DX: R19.7 Diarrhea, unspecified (principal)
CPT/HCPCS: 82274; 83630; 87177; 87209; 87493; 87506

== ENCOUNTER → 2023-11-15 | Outpatient (CLI) | payer BC, SELFPAY ==
--- OUTSIDE RECORDS SUMMARY | 2023-11-15 16:02 | XMS RPT_ITS | CCD ---
Author Name Unknown Address [address] [place] [address] Organization [facility] Care Team Providers Care Compensation And Hris Analyst Name Role Phone Yg MIXING MACHINE TENDER CORK GASKET.Eliz WARD Primary Care Provider ELIZ FOURNIER Referring Unavailable ELIZ FOURNIER Primary Care Unavailable SHEETSCLARE Referring Unavailable ELIZ FOURNIER Primary Care Unavailable SHEETSCLARE C Referring Unavailable ELIZ FOURNIER Primary Care Unavailable Yg MIXING MACHINE TENDER CORK GASKET.Eliz WARD Primary Care Provider Allergies Allergy Classification Reported Allergen(s) Allergy Type Date of Onset Reaction(s) Facility (9 sources) buPROPion; Translations: [BUPROPION HCL] Drug Allergy 3 Mental Status Change [facility] Work Phone: (9 sources) DULoxetine; Translations: [DULOXETINE] Drug Allergy 3 Other: See Comments [facility] Work Phone: (9 sources) FLUoxetine; Translations: [FLUOXETINE HCL] Drug Allergy 3 Mental Status Change [facility] Work Phone: (9 sources) Penicillins; Translations: [PENICILLINS] Propensity to adverse reactions 1124-200 6 Rash [facility] Work Phone: Medications Completed/Discontinued Medications Medication [...] Telephone encounter Eliz Fournier APRN.CNP Work Phone: [facility] Procedures Date Procedure Procedure Detail Performing Clinician Start: 11-02-2022 Us breast uni real t isaiah with image limited Clare C Sheets DO Work Phone: Start: 11-02-2022 Mammography Clare S heets DO Work Phone: Start: 10-19-2022 End: 10-19-2022 Mammography Eliz Fournier APRN.CNP Work Phone: Start: 07-12-2022 Lipid 1996 panel - S marina or Plasma Us 1 Work Phone: Start: 05-13-2016 Mammography Eliz poole MIXING MACHINE TENDER CORK GASKET.ED Work Phone: Start: 04-04-2012 Colonoscopy Eliz poole MIXING MACHINE TENDER CORK GASKET.AIRCRAFT MACHINIST Work Phone: Plan of Treatment Date Care Activity Detail Author Start: 07-12-2027 Lipid 1996 panel - S marina or Plasma Lipid Screening [facility] Start: 07-12-2027 LIPID SCREEN LIPID SCREEN [facility] Start: 07-12-2025 DIABETES SCREEN DIABETES SCREEN [facility] Start: 07-12-2025 Diabetes Screening Diabetes Screenin g [facility] Start: 11-02-2023 Mammography [facility] Start: 10-19-2023 Mammography MAMMOGRAM [facility] Start: 07-12-2023 COVID-19 VACCINE (3 - Booster for Pfizer series) COVID-19 VACCINE (3 - Booster for Pfizer series) [facility] Immunizations Immunization Date Immunization Notes Care Provider Fa juliannety 07-12-2022 influenza, injectabl e, quadrivalent, contains preservative Eliz Yg MIXING MACHINE TENDER CORK GASKET.AIRCRAFT MACHINIST Work Phone: [facility] 07-12-2022 influenza virus vaccine, unspecified formulation [facility] Work Phone: [facility] 08-05-2020 Influenza, injectabl e, Madin [place] Canine Kidney, preservative free, quadrivalent Eliz Yg MIXING MACHINE TENDER CORK GASKET.AIRCRAFT MACHINIST Work Phone: [facility] 11-24-2006 tetanus toxoid, redu judi diphtheria toxoid, and acellular pertussis vaccine, adsorbed Eliz Yg MIXING MACHINE TENDER CORK GASKET.[facility] Work Phone: [facility] Work Phone: Payers Date Payer Category Payer Unknown [employer] PPO OOS [id number] 2011-Present [phone] [address] [place] [address] PPO [id number] 2011 Unknown [id number] Social History Date Type Detail Facility Start: 05-17-2011 Tobacco smoking stat us NHIS Smokes tobacco daily [facility] History of tobacco use Cigarette Smoker [facility] Start: 05-17-2011 End: 09-24-2020 Cigarettes smoked current (pack per day) - Reported 1.5 [facility] Start: 05-17-2011 Tobacco use and exposure Smoke less tobacco non-user [facility] Start: 07-12-2022 Alcohol intake Current drinke r of alcohol (finding) [facility] Start: 05-17-2011 Tobacco Comment Started claudia henderson at age 16. [facility] Start: 1965 Sex Assigned At Not on file [facility] Start: 07-02-2022 End: 07-12-2022 Exposure to SARS-CoV-2 (event) Not sure [facility] Start: 09-24-2020 End: 07-12-2022 Tobacco use panel [facility] PHQ2 Score 0 [facility] Clinical Notes 04-04-2012 to 10-11-2023 Telephone Encounter - Keren Martinez MA - 05/04/2023 8:13 AM EDTTelephone Encounter - Keren Martinez MA - 05/02/2023 8:11 AM EDTTelephone Encounter - Ce Martinez MA - 11/02/2022 1:17 PM EST Note Date & Type Note Facility 10-11-2023 Note HNO ID: [id number] Author: Callie Barrett LPN Service: ? Author Type: LICENSED NURSE Type: Progress Notes Filed: 10/11/2023 12:46 PM Note Text: TRANSITIONAL CARE MANAGEMENT (TCM) COMMUNITY MONITORING PROGRAM - [facility] Provider Action/FYI: SUMMARY: Pt discharged from [facility] on 10/09/2023. Admitted for: Subacute sigmoid diverticulitis with intramural abscess Risk score: unknown Patient seen Inpatient [facility] Visit? N/A. Patient seen ICARE Program? N/A. Contact made with patient: No - next outreach attempt will be on next day Outreach ended [facility] 10-11-2023 Note Patient Outreach (AG INTMLW) KASSIDY VYAS ([id number]) 1965 F Date Time Provider Department 10/11/23 CALLIE BARRETT AGTOSINMLJorge During your visit today, we recorded the following information about you: Callie Barrett LPN 10/11/2023 12:46 PM Signed TRANSITIONAL CARE MANAGEMENT (TCM) COMMUNITY MONITORING PROGRAM - [facility] Provider Action/FYI: SUMMARY: Pt discharged from [facility] on 10/09/2023. Admitted for: Subacute sigmoid diverticulitis [...] 03/06/2013 1 - Mental Status Change Comments: Buckeye hyper and anxious WELLBUTRIN (BUPROPION HCL) 03/06/2013 1 - Mental Status Change Comments: Very anxious and hyper feeling Date Reviewed: 07/12/2022 Reviewed by: Eliz Fournier APRN.AIRCRAFT MACHINIST - Fully Assessed Reason for Visit: Transition Of Care [4074] Cmt: [facility] discharge 10/09/2023 TCM encounter Prescriptions as [...] Encounter Status:Closed by CALLIE BARRETT on 10/11/23 [facility] 10-07-2023 Note HNO ID: [id number] Author: Laura Prather MA Service: ? Author Type: Brewer Helper Type: Progress Notes Filed: 10/07/2023 3:17 PM Note Text: ED Follow Up: Patient discharged from [facility] ED on 10/03/2023. 1. How are you feeling since your ED visit? Admitted to [place] Have your symptoms improved or resolved? In [...] you able to contact the office or mine environmental engineer provider prior to your ED visit? Not applicable 5. Is there anything else I can do for you today? Not applicable Patient has been admitted and in hospital she will call us as soon as she gets out to make TCM apt. Laura Prather MA [facility] 10-07-2023 Note Patient Outreach (AG FAMPLE) KASSIDY VYAS ([id number]) 1965 F Date Time Provider Department 10/07/23 LAURA PRATHER During your visit today, we recorded the following information about you: Laura Prather MA 10/07/2023 3:17 PM Signed ED Follow Up: Patient discharged from [facility] ED on 10/03/2023. 1. How are you feeling since your ED visit? Admitted to [place] Have your symptoms improved or resolved? In [...] you able to contact the office or mine environmental engineer provider prior to your ED visit? Not [...] 03/06/2013 1 - Mental Status Change Comments: Buckeye hyper and anxious WELLBUTRIN (BUPROPION HCL) 03/06/2013 1 - Mental Status Change Comments: Very anxious and hyper feeling Date Reviewed: 07/12/2022 Reviewed by: Eliz Fournier APRN.AIRCRAFT MACHINIST - Fully Assessed Reason for Visit: ed outreach [Other] Cmt: Ed outreach 10/03/2023 [facility] Prescriptions as of 10/07/2023 - sertraline (ZOLOFT) [...] complic*04/04/2012 Encounter Status:Closed by RUBIAALFONSOMARQUEZLAURA on 10/07/23 [facility] 09-23-2023 Note HNO ID: [id number] Author: Alex Escobar RN Service: ? Author Type: Registered Nurse Type: Progress Notes Filed: 09/23/2023 3:46 PM Note Text: TRANSITIONAL CARE MANAGEMENT (TCM) COMMUNITY MONITORING PROGRAM - [facility] Provider Action/FYI: SUMMARY: Pt discharged from [facility] on 09/21/23. Admitted for: Diverticulitis of large intestine with perforation and abscess without bleeding Contact made with patient: No - 2nd unsuccessful attempt - end outreach and close encounter Outreach ended [facility] 09-22-2023 Note HNO ID: [id number] Author: Alex Escobar RN Service: ? Author Type: Registered Nurse Type: Progress Notes Filed: 09/23/2023 3:46 PM Note Text: TRANSITIONAL CARE MANAGEMENT (TCM) COMMUNITY MONITORING PROGRAM - [facility] Provider Action/FYI: SUMMARY: Pt discharged from [facility] on 09/21/23. Admitted for: Diverticulitis of large intestine with perforation and abscess without bleeding Patient seen Inpatient [facility] Visit? No. Patient seen ICA Program? No. Contact made with patient: No - next outreach attempt will be on next day Outreach ended [facility] 09-22-2023 Note Patient Outreach ( AC) KASSIDY VYAS ([id number]) 1965 F Date Time Provider Department 09/22/23 ALEX ESCOBAR [facility] During your visit today, we recorded the following information about you: Alex Escobar RN 09/23/2023 3:46 PM Signed TRANSITIONAL CARE MANAGEMENT (TCM) COMMUNITY MONITORING PROGRAM - [facility] Provider Action/FYI: SUMMARY: Pt discharged from [facility] on 09/21/23. Admitted for: Diverticulitis of large intestine with perforation and abscess without bleeding Patient seen Inpatient [facility] Visit? No. Patient seen [facility] Program? No. Contact made with patient: No - next outreach attempt will be on next day Outreach ended Alex Escobar RN 09/23/2023 3:46 PM Signed TRANSITIONAL CARE MANAGEMENT ([facility]) COMMUNITY MONITORING PROGRAM - [facility] Provider Action/FYI: SUMMARY: Pt discharged from [facility] on 09/21/23. Admitted for: Diverticulitis of large [...] 03/06/2013 1 - Mental Status Change Comments: Buckeye hyper and anxious WELLBUTRIN (BUPROPION HCL) 03/06/2013 1 - Mental Status Change Comments: Very anxious and hyper feeling Date Reviewed: 07/12/2022 Reviewed by: Eliz Fournier APRN.AIRCRAFT MACHINIST - Fully Assessed Reason for Visit: Transition [...] Encounter Status:Closed by ALEX ESCOBAR on 09/23/23 [facility] 05-04-2023 Miscellaneous Notes Called pt left VM that she is due for Mammogram Keren Martinez MA ----- Message from Ce Martinez MA sent at 11/02/2022 1:17 PM EST ----- repeat mammo and US in 6 months documented in this encounter [facility] 11-02-2022 Miscellaneous Notes Patient is informed Ce Martinez MA ----- Message from Clare Schneider DO sent at 11/02/2022 12:50 PM EST ----- Please call pt - breast studies show that the findings are most likely benign and repeat mammo and US in 6 months are recommended Clare Schneider DO documented in this encounter [facility] 11-02-2022 Note HNO ID: [id number] Author: Zeinab Mcdonald RDMS Service: ? Author Type: Outside Property Agent Type: Progress Notes Filed: 11/02/2022 11:46 AM [...] RDMS T November 02, 2022 11:46 AM [facility] 11-02-2022 History of Presen t illness Narrative [...] 2022 11:46 AM documented in this encounter [facility] 10-19-2022 Note HNO ID: [id number] Author: RT Arline(Brittany) Service: ? Author Type: [...] RT Arline(R) October 19, 2022 2:29 PM [facility] 10-19-2022 Miscellaneous Notes October 19, 2022 PID: [id number] Kassidy Vyas [address] [place] [address] Dear Ms. Vyas, Your recent breast imaging exam on 10/19/2022 showed a possible finding that requires additional imaging studies for a complete evaluation. Most such findings are probably benign (not cancer). If you have a healthcare provider who ordered/prescribed your screening mammogram: Please call [phone] or [phone]: [phone] to schedule an appointment for your additional [...] and reports are kept on file at [facility] as part of your permanent medical record, and are available for your continuing care. Thank you for allowing us to help in meeting your health care needs. Sincerely, Dr. Rivera Interpreting Radiologist [facility] (Additional imaging) documented in this encounter [facility] 10-19-2022 History of Presen t illness [...] 2022 2:29 PM documented in this encounter [facility] 08-05-2022 Miscellaneous Notes Called pt let [...] Keren Martinez MA documented in this encounter [facility] 07-14-2022 Miscellaneous Notes Called pt let her know the results and she will try Statin Reminder placed for pt to get calcium checked Keren Martinez MA ----- Message from Eliz Fournier APRN.AIRCRAFT MACHINIST sent at 07/13/2022 4:20 PM EDT ----- Vit d is low. Recommend her take daily vit D 1000 international unit(s) Called pt left VM with for her to call the office back for results Keren Martinez MA ----- Message from Eliz Fournier APRN.AIRCRAFT MACHINIST sent at 07/13/2022 12:26 PM EDT ----- Hep c and HIV negagive ----- Message from Eliz Fournier APRN.AIRCRAFT MACHINIST sent at 07/12/2022 5:30 PM EDT ----- [...] wnl CBC unremarkable documented in this encounter [facility] documented as of this encounter (statuses as of 07/14/2022) [facility] History of Past illness Narrative* Problem Noted Date Resolved Date Special screening for malignant neoplasms, colon 04/04/2012 12/30/2014 Hemorrhage of gastrointestinal tract, unspecifie d 04/04/2012 12/30/2014 Fracture of fibula, distal, closed 12/02/2010 12/30/2014 documented as of this encounter (statuses as of 08/05/2022) [facility] History of Past illness Narrative* Problem Noted Date Resolved Date Special screening for malignant neoplasms, colon 04/04/2012 12/30/2014 Hemorrhage of gastrointestinal tract, unspecifie d 04/04/2012 12/30/2014 Fracture of fibula, distal, closed 12/02/2010 12/30/2014 documented as of this encounter (statuses as of 10/21/2022) [facility] History of Past illness Narrative* Problem Noted Date Resolved Date Special screening for malignant neoplasms, colon 04/04/2012 12/30/2014 Hemorrhage of gastrointestinal tract, unspecifie d 04/04/2012 12/30/2014 Fracture of fibula, distal, closed 12/02/2010 12/30/2014 documented as of this encounter (statuses as of 10/22/2022) [facility] History of Past illness Narrative* Problem Noted Date Resolved Date Special screening for malignant neoplasms, colon 04/04/2012 12/30/2014 Hemorrhage of gastrointestinal tract, unspecifie d 04/04/2012 12/30/2014 Fracture of fibula, distal, closed 12/02/2010 12/30/2014 documented as of this encounter (statuses as of 11/02/2022) [facility] History of Past illness Narrative* Problem Noted Date Diagnosed Date Resolved Date Special screening for malign ant neoplasms, colon 04/04/2012 12/30/2014 Hemorrhage of gastrointestin al tract, unspecified 04/04/2012 12/30/2014 Fracture of fibula, distal, closed 12/02/2010 12/30/2014 documented as of this encounter (statuses as of 05/04/2023) [facility] History of Past illness Narrative* Problem Noted Date Diagnosed Date Resolved Date Special screening for malign ant neoplasms, colon 04/04/2012 12/30/2014 Hemorrhage of gastrointestin al tract, unspecified 04/04/2012 12/30/2014 Fracture of fibula, distal, closed 12/02/2010 12/30/2014 documented as of this encounter (statuses as of 08/21/2023) [facility] History of Past illness Narrative* Problem Noted Date Diagnosed Date Resolved Date Special screening for malign ant neoplasms, colon 04/04/2012 12/30/2014 Hemorrhage of gastrointestin al tract, unspecified 04/04/2012 12/30/2014 Fracture of fibula, distal, closed 12/02/2010 12/30/2014 documented as of this encounter (statuses as of 08/21/2023) [facility] Hypercalcemia- Primary [facility]normal [facility]- Primary Ab[facility], unspecified [facility] Abnormal [facility]ogram Abnormal mammogram, unspecified [facility] Diagnosis Encounter for screening mammogram for malignant neoplasm of breast Other screening mammogram documented in this encounter [facility] for referral (narrative)* Diagnostic Procedure Only (Routine) - Pending Review Specialty Diagnoses / Procedures Referred By Mike t Referred To Contact [facility] Diagnoses Abnormal mammogram Procedures US BREAST LTD LEFT US BREAST UNI REAL TIME WITH IMAGE LIMITED Eliz Fournier APRN.AIRCRAFT MACHINIST [address] [place] [address] [facility] [address] [place] [address] Referral ID Status Reason Start Date Expiration Date Visits Requested Visits Authorized [id number] Pending Review Auto-Generat ed Referral 05/03/2023 06/01/2024 1 1 * Diagnostic Procedure Only (Routine) - Pending Review Specialty Diagnoses / Procedures Referred By Contac t Referred To Contact [facility] Diagnoses Abnormal mammogram Procedures US BREAST LTD RIGHT US BREAST UNI REAL TIME WITH IMAGE LIMITED Eliz Fournier APRN.AIRCRAFT MACHINIST [address] [place] [address] [facility] [address] [place] [address] Referral ID Status Reason Start Date Expiration Date Visits Requested Visits Authorized [id number] Pending Review Auto-Generat ed Referral 05/03/2023 06/01/2024 1 1 * Diagnostic Procedure Only (Routine) - Pending Review Specialty Diagnoses / Procedures Referred By Contac t Referred To Contact [facility] Diagnoses Abnormal mammogram Procedures LIA DIAGNOSTIC BILATERAL DIAGNOSTIC MAMMOGRAPHY COMPUTER-AIDED DETCJ BI Eliz Fournier APRN.AIRCRAFT MACHINIST [address] [place] [address] [facility] [address] [place] [address] Referral ID Status Reason Start Date Expiration Date Visits Requested Visits Authorized [id number] Pending Review Auto-Generat ed Referral 05/03/2023 06/01/2024 1 1 [facility] for referral (narrative)* Diagnostic Procedure Only (Routine) - Closed Specialty Diagnoses / Procedures Referred By Contac t Referred To Contact [facility] Diagnoses Abnormal mammogram Procedures US BREAST LTD RT US BREAST UNI REAL TIME WITH IMAGE LIMITED Sheets, Clare C, DO [address] [place] [address] [facility] [address] [place] [address] Referral ID Status Reason Start Date Expiration Date V isits Requested Visits Authorized [id number] Closed Auto-Generate d Referral 10/19/2022 11/18/2023 1 1 * Diagnostic Procedure Only (Routine) - Closed Specialty Diagnoses / Procedures Referred By Contac t Referred To Contact [facility] Diagnoses Abnormal mammogram Procedures US BREAST LTD LT US BREAST UNI REAL TIME WITH IMAGE LIMITED Sheets, Clare C, DO [address] [place] [address] [facility] [address] [place] [address] Referral ID Status Reason Start Date Expiration Date V isits Requested Visits Authorized [id number] Closed Auto-Generate d Referral 10/19/2022 11/18/2023 1 1 [facility] for referral (narrative)* Diagnostic Procedure Only (Routine) - Closed Specialty Diagnoses / Procedures Referred By Contac t Referred To Contact [facility] Diagnoses Encounter for screening mammogram for malignant neoplasm of breast Procedures LIA SCREENING SCREENING MAMMOGRAPHY BI 2-VIEW BREAST INC CAD Yg, Eliz Gonzalez, MIXING MACHINE TENDER CORK GASKET.AIRCRAFT MACHINIST [address] [place] [address] [facility] [address] [place] [address] Referral ID Status Reason Start Date Expiration Date V isits Requested Visits Authorized [id number] Closed Auto-Generate d Referral 07/12/2022 08/11/2023 1 1 Electronically signed by Eliz Fournier MIXING MACHINE TENDER CORK GASKET.AIRCRAFT MACHINIST at 10/19/2022 2:28 PM EST [facility] for visit Narrative* Diagnostic Procedure Only (Routine) - Closed Specialty Diagnoses / Procedures Referred By Contac t Referred To Contact [facility] Diagnoses Encounter for screening mammogram for malignant neoplasm of breast Procedures LIA SCREENING SCREENING MAMMOGRAPHY BI 2-VIEW BREAST INC CAD Eliz Fournier, MIXING MACHINE TENDER CORK GASKET.AIRCRAFT MACHINIST [address] [place] [address] [facility] [address] [place] [address] Referral ID Status Reason Start Date Expiration Date V isits Requested Visits Authorized [id number] Closed Auto-Generate d Referral 07/12/2022 08/11/2023 1 1 [facility] Summary Purpose Family History No Family History Records FoundNo Family History Records FoundNo Family History Records Found Advance Directives No Advanced Directives Records FoundNo Advanced Directives Records FoundNo Advanced Directives Records Found Additional Source Comments INFORMATION SOURCE (unrecogn ized section and content) DATE CREATED AUTHOR AUTHOR'S ORGANIZ ATION 11/03/2022 [facility] DATE CREATED AUTHOR AUTHOR'S ORGANIZ ATION 10/13/2023 [facility] Source Comments (unrecognize d section and content) In the event this informatio n is protected by the Federal Confidentiality of Alcohol and Drug Abuse Patient Records regulations: The Federal rules restrict any use of the information to criminally investigate or prosecute any alcohol or drug abuse patient.[facility] the event this information is protected by the Federal Confidentiality of Alcohol and Drug Abuse Patient Records regulations: The Federal rules restrict any use of the information to criminally investigate or prosecute any alcohol or drug abuse patient.[facility] the event this information is protected by the Federal Confidentiality of Alcohol and Drug Abuse Patient Records regulations: The Federal rules restrict any use of the information to criminally investigate or prosecute any alcohol or drug abuse patient.[facility] the event this information is protected by the Federal Confidentiality of Alcohol and Drug Abuse Patient Records regulations: The Federal rules restrict any use of the information to criminally investigate or prosecute any alcohol or drug abuse patient.[facility] the event this information is protected by the Federal Confidentiality of Alcohol and Drug Abuse Patient Records regulations: The Federal rules restrict any use of the information to criminally investigate or prosecute any alcohol or drug abuse patient.[facility] the event this information is protected by the Federal Confidentiality of Alcohol and Drug Abuse Patient Records regulations: The Federal rules restrict any use of the information to criminally investigate or prosecute any alcohol or drug abuse patient.[facility] the event this information is protected by the Federal Confidentiality of Alcohol and Drug Abuse Patient Records regulations: The Federal rules restrict any use of the information to criminally investigate or prosecute any alcohol or drug abuse patient.[facility] Hospital[facility] the event this information is protected by the Federal Confidentiality of Alcohol and Drug Abuse Patient Records regulations: The Federal rules restrict any use of the information to criminally investigate or prosecute any alcohol or drug abuse patient.[facility] Reason for Visit (unrecogniz ed section and content) Reason Comments Orders Reason Comments Mammogram Result Call Back Reason Comments Orders Reason Comments Radiology US Specialty Diagnoses / Procedures Referred By Mike t Referred To Contact [facility] Diagnoses Abnormal mammogram Procedures US BREAST LTD RT US BREAST UNI REAL TIME WITH IMAGE LIMITED Sheets, Clare Hardy DO [address] [place] [address] [facility] [address] [place] [address] Referral ID Status Reason Start Date Expiration Date V isits Requested Visits Authorized [id number] Closed Auto-Generate d Referral 10/19/2022 11/18/2023 1 1 Care Teams (unrecognized sec tion and content) Compensation And Hris Analyst Relationship Specialty Start Date End Date Eliz Fournier MIXING MACHINE TENDER CORK GASKET.AIRCRAFT MACHINIST [address] [place] [address] PCP - General Internal Medicine 07/12/22 Compensation And Hris Analyst Relationship Specialty Start Date End Date Eliz Fournier, MIXING MACHINE TENDER CORK GASKET.AIRCRAFT MACHINIST [address] [place] [address] PCP - General Internal Medicine 07/12/22 Compensation And Hris Analyst Relationship Specialty Start Date End Date Eliz Fournier, MIXING MACHINE TENDER CORK GASKET.AIRCRAFT MACHINIST [address] [place] [address] PCP - General Internal Medicine 07/12/22 Compensation And Hris Analyst Relationship Specialty Start Date End Date Eliz Fournier, MIXING MACHINE TENDER CORK GASKET.AIRCRAFT MACHINIST [address] [place] [address] PCP - General Internal Medicine 07/12/22 Compensation And Hris Analyst Relationship Specialty Start Date End Date Eliz Fournier, MIXING MACHINE TENDER CORK GASKET.AIRCRAFT MACHINIST [address] [place] [address] PCP - General Internal Medicine 07/12/22 Compensation And Hris Analyst Relationship Specialty Start Date End Date Eliz Fournier, MIXING MACHINE TENDER CORK GASKET.AIRCRAFT MACHINIST [address] [place] [address] PCP - General Internal Medicine 07/12/22 FOR [...] BE BASED ON THE PRIMARY CLINICAL RECORDS. [employer] [facility]. provides no warranty or guarantee of the accuracy or completeness of information in this document.
== END | disposition home or self-care (01) ==
LOC: LABSPEC 15:40
PROVIDERS: PCP Family Medicine; Referring Provider Physician Assistant; Visit Provider Physician Assistant
DX: A04.71 Enterocolitis due to Clostridium difficile, recurrent (principal)
CPT/HCPCS: 82274; 83630; 87493

== ENCOUNTER 2024-02-09 07:11 | Day surgery (SDC) | payer BC, SELFPAY ==
--- NOTE | 2024-02-09 | COLBX_PTH ---
PATIENT: ROLANDO CLOUD LOC: EN U#:[id number] AGE/SX: 59/F ROOM: RE02/09/[address]: Dr. Joseph Bateman MD : 1965 BED: DIS: 02/09/2024 SPEC #: [id number] RECD: 02/09/24 13:44 STATUS: MARIANO HARDING #: [id number] AFIA: 02/09/24 00:[address]: Joseph Bateman DEPT: SURGICAL PATHOLOGY RECD BY: Levi Oakley ENTERED: 02/09/24 13:45 SP TYPE: COLON BX OTHR DR: Dr. Taylor Schneider DO Tissues: A - COLON BIOPSY B - Descending colon C - Sigmoid colon biopsy D - Sigmoid colon biopsy E - Rectum, NOS Procedures: Surgery Specimen Level IV HEADER OPERATION: Colonoscopy with biopsies, polypectomy PRE-OP DIAGNOSIS: Diverticular disease of intestine with perforation and abscess, cdiff colitis TISSUE SUBMITTED: A- Mucosal fold biopsy, proximal descending colon at 70, B- Mucosal fold biopsy, distal descending colon, C- Sigmoid mucosal biopsy, D- Distal sigmoid colon polyp x6, E- Rectal polyp x5 MICROSCOPIC DIAGNOSIS A. Proximal descending colon at 70cm, mucosal fold biopsy: Fragments of hyperplastic polyp. B. Distal ascending colon, mucosal fold biopsy: Hyperplastic polyp. C. Sigmoid mucosa biopsy: Fragments of colonic mucosa, no pathologic diagnosis. D. Distant sigmoid polypx6, polypectomy: Fragments of hyperplastic polyp. E. Rectal polypx5, polypectomy: Fragments of hyperplastic polyp. REGINALD/ 02/10/2024 MICROSCOPIC DESCRIPTION Slides are reviewed. GROSS DESCRIPTION A. Received in fixative is one container labeled with the patient's name and designated Mucosal fold biopsy proximal descending colon at 70cm. The specimen consists of two irregular fragments of light raymundo soft tissue that in aggregate measure 0.8 x 0.3 x 0.1 cm. The specimen is totally submitted in one cassette. B. Received in fixative is one container labeled with the patient's name and designated Mucosal fold biopsy, distal descending colon. The specimen consists of one irregular fragment of light raymundo soft tissue that measures 0.4 x 0.3 x 0.1 cm. The specimen is totally submitted in one cassette. C. Received in fixative is one container labeled with the patient's name and designated Sigmoid mucosal biopsy. The specimen consists of two irregular fragments of light raymundo soft tissue that in aggregate measure 0.5 x 0.5 x 0.1 cm. The specimen is totally submitted in one cassette. D. Received in fixative is one container labeled with the patient's name and designated Distal sigmoid colon polyp x6. The specimen consists of multiple irregular fragments of light raymundo soft tissue that in aggregate measure 1.5 x 1.5 x 0.3 cm and 0.2 to 1.0cm in greatest dimension. The specimen is totally submitted in one cassette. E. Received in fixative is one container labeled with the patient's name and designated Rectal polyp. The specimen consists of multiple irregular fragments of light raymundo soft tissue that in aggregate measure 1.5 x 0.6 x 0.1 cm. The specimen is totally submitted in one cassette. REGINALD/ 02/09/24 TC:1 CPT:88790a1
[2024-02-09 07:45] VITALS: BP 136/69; PULSE 76; RESP 16; TEMP 36.3; O2SAT 99; BMI 23.8
[2024-02-09] MEDS: Lactated Ringers 1,000 ML 15 ML IV (07:45)
--- NOTE | 2024-02-09 08:37 | HP.PCM_ITS ---
History and Physical Date of Service: 10/26/23 MR#: [id number] Acct: [id number] Name: ROLANDO CLOUD Rep #: [id number] : 1965 Provider: Dr. Joseph Bateman MD Age/Sex: 58/F Location: [facility] Status: Signed Intake Vital Signs 10/07/2310:11 10/26/2409:27 Height 5 ft 8 in 5 ft 8 in Weight: 159 lb BMI 24.1 BP 116/76 Blood Pressure Location Lt brachial Position Sitting Respiration 17 Pulse 84 Pulse Source Monitor Pulse Oximetry (%) 97 Oxygen Delivery Method room air Intake Visit Reasons: ACUTE PERFORATED SIGMOID DIVERTICULITIS Chief Complaint: f/u acute perforated sigmoid diverticulitis Is patient in pain?: No Allergies Penicillins Allergy (Verified 10/26/23 10:28) Hives Medications lamotrigine 150 mg tablet 300 mg PO DAILY depression 09/18/23 [History Confirmed 10/26/23] sertraline 100 mg tablet 150 mg PO Q24H depression 09/18/23 [History Confirmed 10/26/23] ferrous sulfate 325 mg (65 mg iron) tablet,delayed release 325 mg PO DAILY #30 tabs 10/09/23 [Rx Confirmed 10/26/23] PFSH Medical History Depression Smoker Family History Mother Cancer Patient's mother has gallbladder cancer with metastasis to the liver. Social History (Updated 10/26/23 @ 10:27 by Laura Noe) Smoking Status: Current every day smoker tobacco type: cigarettes alcohol intake: current alcohol intake frequency: a few times a month substance use type: marijuana HPI HPI HPI: Patient is a 58-year-old female who presents for follow-up of a recent inpatient hospitalization where she was admitted from 10/05/2023 to 10/09/2023 due to diagnoses of complicated diverticulitis and toxigenic C. difficile colitis. She presents today with her . She shares that she has had no pain. She notes that her bowel movements are largely normalized and she experiences just 1-2 bowel movements per day. She has not had any fevers at home. She confirms that she completed the prescribed antibiotics on 10/24/2023. She shares that she is still on iron supplementation and that she has experienced some improvement in her energy levels. ROS General General: No weight change, appetite, fatigue, colon cancer, breast cancer or weakness HEENT HEENT: No difficulty swallowing, eye injury, eye surgery, swollen glands or hoarseness Endo Endocrine: No thyroid disease, diabetes mellitus, thyroid cancer, Hair loss, heat intolerance or cold intolerance Skin Skin: No rash or changing moles Musc Musculoskeletal: No back problems, arthritis, rheumatoid arthritis, gout or joint pain Cardio Cardiovascular: No murmur, pacemaker, heart disease, atrial fibrillation, high blood pressure, heart attack, heart stent, palpitations, shortness of breat with exertion or chest pain Psych Psychiatric: No depression, anxiety or hearing voices Resp Respiratory: No shortness of breath, No sleep apnea, No cough, No COPD, No asthma, No emphysema and No wheezing Gastro Gastrointestinal: No abdominal pain, No nausea or vomiting, No diarrhea, No constipation, No blood in stool, No acid reflux, No hemorrhoids, No ulcers, No gallbladder problem and Yes black,tarry stools Additional Details: takes iron Kenny Hematologic: No blood thinners, No blood disorders, No bleeding, No anemia and No blood clots Neuro Neurologic: No system reviewed and no additional complaints, except as documented, No as per HPI, No abnormal gait, No abnormal hearing, No abnormal movements, No abnormal speech, No behavioral changes, No burning sensations, No confusion, No convulsions, No disequilibrium, No dizziness, No localized weakness, No frequent falls, No headache(s), No lack of coordination, No loss of vision, No memory loss, No numbness, No other visual disturbances, No radicular pain, No restless legs, No sensory deficit, No syncope, No tingling, No tremor(s), No weakness and No other Exam Const General: cooperative and comfortable Orientation: alert, awake and oriented x3 Resp Effort & Inspection: normal respiratory effort GI Other: Nondistended, soft, nontender to palpation x 4 quadrants Assessment and Plan Assessment and Plan (1) Diverticular disease of intestine with perforation and abscess: Status: Acute Comment: 58-year-old female who makes her first outpatient follow-up for diagnosis of complicated diverticulitis with pericolonic abscess first diagnosed early last month. She has had resolution of her abdominal pain and has had no further signs of infection. She confirms compliance with outpatient antibiotic regimen and therefore, based on her clinical improvements, I am hopeful that she has resolved the above issue. Yet, to be objective in this confirmation I would like her to undergo [address] scan of the abdomen pelvis with oral and IV contrast to confirm resolution. If resolved, we will plan for a diagnostic colonoscopy as an outpatient in another 6 weeks to investigate not only this area but the remainder of the colon as patient has never had prior colonoscopy. Plan: ? CT of the abdomen pelvis with p.o. and IV contrast (2) C. difficile colitis: Status: Acute Comment: Patient recently recovered from superinfection with toxigenic C. difficile colitis. She does not describe any symptoms consistent with this infection and her prior diffuse abdominal pain is resolved. I will look closely to her CT imaging for any evidence of pancolitis and have asked her to continue standard precautions around both her loved ones and those at work until we undergo the CT imaging so she is not inadvertently spreading an asymptomatic infection. Orders: I have examined the patient the following changes are noted: Patient had recu rrence of her C. difficile colitis but confirms that she has been asymptomatic since undergoing a vancomycin taper and meeting with infectious disease. She denies any abdominal pain or diarrhea, specifically. She denies any further interval health updates, otherwise. She confirms that she completed a prep for today's procedure and denies further questions. She is somewhat anxious about undergoing the procedure as she reportedly awoken during her last colonoscopy. Will now proceed to the endoscopy suite for procedure as described.
[2024-02-09 10:05] VITALS: BP 136/69; BP 94/73; PULSE 68; RESP 16; TEMP 36.1; O2SAT 96
[2024-02-09 10:10] VITALS: BP 102/49; BP 136/69; PULSE 69; RESP 16; O2SAT 98
--- NOTE | 2024-02-09 10:11 | OP.COLON_ITS ---
Patient Name: Kassidy Vyas Procedure Date: 02/09/2024 8:38 AM Date of : 1965 Age: 59 Procedure: Colonoscopy Indications: Recurrent Clostridium difficile colitis, Follow-up of diverticulitis Providers: Joseph Bateman MD Medicines: See the Anesthesia note for documentation of the administered medications Patient Profile: Refer to note in patient chart for documentation of history and physical. Last Colonoscopy: date unknown. Complications: No immediate complications. Estimated blood loss: Minimal. Procedure: Pre-Anesthesia Assessment: - The heart rate, respiratory rate, oxygen saturations, blood pressure, adequacy of pulmonary ventilation, and response to care were monitored throughout the procedure. After I obtained informed consent, the scope was passed under direct vision. Throughout the procedure, the patient's blood pressure, pulse, and oxygen saturations were monitored continuously. The Colonoscope was introduced through the anus and advanced to the cecum, identified by appendiceal orifice and ileocecal valve. The colonoscopy was somewhat difficult due to a redundant colon, significant looping and a tortuous colon. Successful completion of the procedure was aided by changing the patient to a supine position, using manual pressure and withdrawing and reinserting the scope. Scope In: 8:49:14 AM Scope Withdrawal Time 0 hours 41 minutes 40 seconds Scope Out: 9:57:47 AM Total Procedure Duration Time 1 hour 8 minutes 33 seconds Findings: The perianal and digital rectal examinations were normal. Pertinent negatives include normal sphincter tone. A localized area of mildly nodular mucosa was found in the proximal descending colon and in the distal descending colon. Biopsies were taken with a cold forceps for histology. Estimated blood loss was minimal. A localized area of mildly erythematous mucosa was found in the sigmoid colon. Biopsies were taken with a cold forceps for histology. Estimated blood loss was minimal. Six semi-pedunculated, non-bleeding polyps were found in the distal sigmoid colon. The polyps were 2 to 10 mm in size. These polyps were removed with a hot snare. Resection and retrieval were complete. Estimated blood loss was minimal. Five semi-pedunculated polyps were found in the rectum. The polyps were 2 to 10 mm in size. These polyps were removed with a hot snare. Resection and retrieval were complete. These polyps were removed with a cold snare. Resection and retrieval were complete. Estimated blood loss was minimal. Anal papilla(e) were hypertrophied. No biopsies or other specimens were collected for this exam. Impression: - Nodular mucosa in the proximal descending colon and in the distal descending colon. Biopsied. - Erythematous mucosa in the sigmoid colon. Biopsied. - Six 2 to 10 mm, non-bleeding polyps in the distal sigmoid colon, removed with a hot snare. Resected and retrieved. - Five 2 to 10 mm polyps in the rectum, removed with a hot snare and removed with a cold snare. Resected and retrieved. - Anal papilla(e) were hypertrophied. No specimens collected. Recommendation: - Discharge patient to home (via wheelchair). - High fiber diet today. - No aspirin, ibuprofen, naproxen, or other non-steroidal anti-inflammatory drugs for 2 days after biopsy. - Await pathology results. - Repeat colonoscopy date to be determined after pending pathology results are reviewed for surveillance based on pathology results. - Telephone my office for pathology results in 1 week. Procedure Code(s): --- Professional --- 42897, Colonoscopy, flexible; with removal of tumor(s), polyp(s), or other lesion(s) by snare technique 34675, 59, Colonoscopy, flexible; with biopsy, single or multiple Diagnosis Code(s): --- Professional --- K63.89, Other specified diseases of intestine D12.5, Benign neoplasm of sigmoid colon D12.8, Benign neoplasm of rectum K62.89, Other specified diseases of anus and rectum A04.71, Enterocolitis due to Clostridium difficile, recurrent K57.32, Diverticulitis of large intestine without perforation or abscess without bleeding CPT copyright 2021 [employer]. All rights reserved. The codes documented in this report are preliminary and upon shear grinder operator helper review may be revised to meet current compliance requirements. Joseph Bateman MD 02/09/2024 10:11:27 AM This report has been signed electronically. Number of Addenda: 0 Note Initiated On: 02/09/2024 8:38 AM
--- NOTE | 2024-02-09 10:12 | OP.CCLET_ITS ---
02/09/2024 Taylor Schneider Re : Colonoscopy procedure for Kassidy Vyas Dear Wyatt This procedure was performed on January. My impressions and recommendations are as follows: Impressions : - Nodular mucosa in the proximal descending colon and in the distal descending colon. Biopsied. - Erythematous mucosa in the sigmoid colon. Biopsied. - Six 2 to 10 mm, non-bleeding polyps in the distal sigmoid colon, removed with a hot snare. Resected and retrieved. - Five 2 to 10 mm polyps in the rectum, removed with a hot snare and removed with a cold snare. Resected and retrieved. - Anal papilla(e) were hypertrophied. No specimens collected. Recommendations : - Discharge patient to home (via wheelchair). - High fiber diet today. - No aspirin, ibuprofen, naproxen, or other non-steroidal anti-inflammatory drugs for 2 days after biopsy. - Await pathology results. - Repeat colonoscopy date to be determined after pending pathology results are reviewed for surveillance based on pathology results. - Telephone my office for pathology results in 1 week. My findings are described in the full procedure note, which is enclosed. If I can be of further assistance, please feel free to contact me at Doctor phone number(s): , Work: . Sincerely, Joseph Bateman MD 02/09/2024 10:11:27 AM This report has been signed electronically.
[2024-02-09 10:20] VITALS: BP 111/60; BP 136/69; PULSE 67; RESP 16; TEMP 36.4; O2SAT 99
[2024-02-09 10:36] VITALS: BP 136/69
== END 2024-02-09 10:56 | disposition home or self-care (01) ==
LOC: EN 07:13 → AC 07:14
PROVIDERS: PCP Family Medicine; Referring Provider Family Medicine; Visit Provider Surgery
PROC: 0DJD8ZZ Inspection of Lower Intestinal Tract, Via Natural or Artificial Opening Endoscopic (ICD-10-PCS; CPT 45378; principal; 2024-02-09 08:25)
DX: K57.32 Diverticulitis of large intestine without perforation or abscess without bleeding (principal); Z80.0 Family history of malignant neoplasm of digestive organs; F12.90 Cannabis use, unspecified, uncomplicated; Z90.49 Acquired absence of other specified parts of digestive tract; A04.71 Enterocolitis due to Clostridium difficile, recurrent; F17.210 Nicotine dependence, cigarettes, uncomplicated; K62.89 Other specified diseases of anus and rectum; D12.5 Benign neoplasm of sigmoid colon; D12.8 Benign neoplasm of rectum
CPT/HCPCS: 45380; 45385; 88305; J7120; J2405

== ENCOUNTER → 2025-05-15 | Outpatient (CLI) | payer BC, SELFPAY ==
[2025-05-15 16:37] LABS: Hematocrit 41.0 % (37-47); Hemoglobin 14.0 g/dL (12.0-15.0); Immature Granulocytes Count 0.040 X10^3/uL (0.0-0.0); Mean Corp Hgb Conc 34.1 g/dL (32-36); Mean Corpuscular Volume 91.5 fL (81-99); Mean Platelet Vol. 9.2 fl (6.2-12.0); NRBC Flagged by Analyzer 0 % (0-5); Platelet Count 287 K/mm3 (150-450); RBC Distribution Width CV 12.9 % (11.6-14.6); RBC Distribution Width SD 43.6 fl (35.1-43.9); Red Blood Count 4.48 M/mm3 (4.2-5.4); White Blood Count 7.3 K/mm3 (4.4-11.0)
[2025-05-15 16:59] LABS: AST(SGOT) 27 U/L (<=31); Alanine Aminotransfer ALT/SGPT 18 U/L (<=34); Albumin, Serum 4.4 g/dL (3.4-4.8); Alkaline Phosphatase 73 U/L (35-104); Anion Gap 15 (5-15); BUN 13 mg/dL (4-19); BUN/Creat Ratio 14.5 RATIO (10-20); Calcium,Total 10.1 mg/dL (7.6-11.0); Carbon Dioxide 22.3 mmol/L (21.0-32.0); Chloride 99 mmol/L (98-108); Cholesterol 350 mg/dL (<=200); Globulin 3.2 g/dL (2.2-4.2); Glucose 99 mg/dL (70-99); Low Density Lipoprotein Calc. 214 mg/dL; Potassium 4.0 mmol/L (3.3-5.1); Triglycerides 285 mg/dL; Very Low Density Lipoprotein 57 mg/dL (5-40); cholesterol:hdl ratio screen 4.43
[2025-05-15 18:08] LABS: Amylase 73 U/L (28-100); Lipase 37 U/L (13-75)
== END | disposition home or self-care (01) ==
LOC: VSLAB 14:57
PROVIDERS: PCP Family Medicine; Visit Provider Family Medicine
DX: R10.11 Right upper quadrant pain (principal)
CPT/HCPCS: 36415; 80053; 80061; 82150; 83690; 85025

== ENCOUNTER → 2025-05-27 | Outpatient (CLI) | payer BC, SELFPAY | END | disposition home or self-care (01) | PROVIDERS: PCP Family Medicine; Referring Provider Family Medicine; Visit Provider Family Medicine | DX: R10.11 Right upper quadrant pain (principal) | CPT/HCPCS: 76705 ==